=== PATIENT | male | born 1955 | race Caucasian/White ===

== ENCOUNTER → 2016-09-07 | Outpatient (REF) | payer BC ==
[~2016-09-07] MED LIST: FLAX10002 PO; KETO10TAB PO; LISI20TA PO; PRIN10TA PO; SMZ-800T PO
[2016-09-07 13:30] LABS: BASO % 0.4 % (0.0-1.0); EOS # 0.1 K/mm3 (0.0-0.50); EOS % 1.3 % (0.0-3.0); LARGE UNSTAINED CELL # 0.2 K/mm3 (0.0-0.4); LARGE UNSTAINED CELL % 3.8 % (0.0-4.0); LYMPH # 1.3 K/mm3 (1.5-4.5); MEAN CORPUSCULAR HEMOGLOBIN 29.7 pg (27.0-33.0); MEAN CORPUSCULAR HGB CONC 32.7 g/dl (32.0-36.5); MEAN CORPUSCULAR VOLUME 90.8 fl (80.0-96.0); MONO # 0.4 K/mm3 (0.0-0.8); MONO % 7.4 % (0.0-5.0); NEUTROPHILS # 3.3 K/mm3 (1.8-7.7); NEUTROPHILS % 62.1 % (36.0-66.0); PLATELET COUNT, AUTOMATED 124 k/mm3 (150-450); RED CELL DISTRIBUTION WIDTH 13.1 % (11.5-14.5); WHITE BLOOD COUNT 5.3 K/mm3 (4.0-10.0)
[2016-09-07 14:11] LABS: VITAMIN B12 LEVEL 1038 PG/ML (247-911)
[2016-09-07 14:23] LABS: ALBUMIN 3.7 GM/DL (3.2-5.2); ALBUMIN/GLOBULIN RATIO 1.12 (1.00-1.93); ALKALINE PHOSPHATASE 170 U/L (45-117); ALT/SGPT 79 U/L (12-78); ANION GAP 11 MEQ/L (8-16); AST/SGOT 59 U/L (15-37); BILIRUBIN,TOTAL 0.7 MG/DL (0.2-1.0); BLOOD UREA NITROGEN 20 MG/DL (7-18); CALCIUM LEVEL 8.7 MG/DL (8.8-10.2); CARBON DIOXIDE LEVEL 26 MEQ/L (21-32); CHLORIDE LEVEL 107 MEQ/L (98-107); CREATININE FOR GFR 0.83 MG/DL (0.70-1.30); GLOMERULAR FILTRATION RATE > 60.0 (>49); GLUCOSE, FASTING 92 MG/DL (80-110); POTASSIUM SERUM 4.1 MEQ/L (3.5-5.1); SODIUM LEVEL 144 MEQ/L (136-145)
[2016-09-07 17:56] LABS: FERRITIN 89 NG/ML (26-388); TOTAL IRON BINDING CAPACITY 320 UG/DL (250-450)
== END ==
LOC: M SFHCPLAZ 11:02
PROVIDERS: ATTEND Family Medicine
DX: K74.60 Unspecified cirrhosis of liver (principal); I10 Essential (primary) hypertension; E11.69 Type 2 diabetes mellitus with other specified complication

== ENCOUNTER → 2016-09-30 | Outpatient (CLI) | payer BC ==
[~2016-09-30] VITALS: Ht 177.8 cm; Wt 111.6 kg
[~2016-09-30] MED LIST changes: +INSULANT SC; +LIDOCAINE 2% INJ 100 MG/5 ML SDV (FOR ANES.) As Ordered ONE; +LIPI10TA PO; +LISI10TA2 PO; +METF1000 PO; +MULTTAB23 PO; +NADO20TA PO; +NS 1,000 ML IV SCH; +OMEP40CA2 PO; +PROPOFOL 200 MG/20 ML VIAL As Ordered ONE; +VITA10006 PO; +VITA200016 PO
--- NOTE | 2016-09-30 12:29 | ROOR ---
Patient Name: Amaury Sinha Procedure Date: 09/30/2016 7:30 AM Date of : 1955 Age: 61 Room: [facility] Gender: Male Note Status: Finalized Procedure: Upper GI endoscopy Indications: Cirrhosis rule out esophageal varices, Esophageal varices, Follow-up of esophageal varices Providers: Gage OGDEN MD Referring MD: Ernie Cardona MD Requesting Provider: Medicines: Monitored Anesthesia Care Complications: No immediate complications. Procedure: Pre-Anesthesia Assessment: - The heart rate, respiratory rate, oxygen saturations, blood pressure, adequacy of pulmonary ventilation, and response to care were monitored throughout the procedure. The Endoscope was introduced through the mouth, and advanced to the second part of duodenum. The upper GI endoscopy was accomplished without difficulty. The patient tolerated the procedure well. Findings: Grade I, small (< 5 mm) varices were found in the lower third of the esophagus. They were small in size. Small varices-no endoscopic therapy indicated The Z-line was variable and was found 38 cm from the incisors. This was biopsied with a cold forceps for histology. The entire examined stomach was normal. The examined duodenum was normal. Impression: - Grade I and small (< 5 mm) esophageal varices. (Small varices-no endoscopic therapy indicated) - Z-line variable, 38 cm from the incisors. Biopsied. - Normal stomach. - Normal examined duodenum. Recommendation: - Start/continue a Non-selective Beta Kim such as Propranolol or Nadolol, titrate to heart rate. - Repeat upper endoscopy in 1 year for surveillance. Gage Ogden MD Gage OGDEN MD 09/30/2016 12:28:45 PM This report has been signed electronically. Number of Addenda: 0 Note Initiated On: 09/30/2016 7:30 AM Estimated Blood Loss: Estimated blood loss: none.
[2016-09-30 13:04] VITALS: BP 117/71
== END | disposition home or self-care (01) ==
LOC: M OPP 09:18
PROVIDERS: ATTEND Internal Medicine Gastroenterology
DX: K74.60 Unspecified cirrhosis of liver (principal); I85.00 Esophageal varices without bleeding; K22.8 Other specified diseases of esophagus; I10 Essential (primary) hypertension; E78.5 Hyperlipidemia, unspecified; E10.9 Type 1 diabetes mellitus without complications; R06.83 Snoring; M19.90 Unspecified osteoarthritis, unspecified site; Z87.891 Personal history of nicotine dependence; Z79.899 Other long term (current) drug therapy; Z79.84 Long term (current) use of oral hypoglycemic drugs; Z79.4 Long term (current) use of insulin; Z88.0 Allergy status to penicillin; Z88.8 Allergy status to other drugs, medicaments and biological substances

== ENCOUNTER → 2016-12-16 | Outpatient (REF) | payer BC ==
[~2016-12-16] MED LIST changes: -LIDOCAINE 2% INJ 100 MG/5 ML SDV (FOR ANES.) As Ordered ONE; -NS 1,000 ML IV SCH; -PROPOFOL 200 MG/20 ML VIAL As Ordered ONE
[2016-12-16 19:10] LABS: MEAN CORPUSCULAR HEMOGLOBIN 30.2 pg (27.0-33.0); MEAN CORPUSCULAR HGB CONC 33.5 g/dl (32.0-36.5); MEAN CORPUSCULAR VOLUME 90.1 fl (80.0-96.0); RED CELL DISTRIBUTION WIDTH 13.5 % (11.5-14.5); RETIC HEMOGLOBIN CONTENT CHr 32.6 PG (24-36); RETICULOCYTE ABSOLUTE ADVIA212 95 x10(9)/L (17-77); WHITE BLOOD COUNT 5.2 K/mm3 (4.0-10.0)
[2016-12-16 19:11] LABS: ALBUMIN 3.7 GM/DL (3.2-5.2); ALBUMIN/GLOBULIN RATIO 1.12 (1.00-1.93); ALKALINE PHOSPHATASE 165 U/L (45-117); ALT/SGPT 83 U/L (12-78); ANION GAP 7 MEQ/L (8-16); AST/SGOT 60 U/L (15-37); BILIRUBIN,TOTAL 0.7 MG/DL (0.2-1.0); BLOOD UREA NITROGEN 18 MG/DL (7-18); CALCIUM LEVEL 9.2 MG/DL (8.8-10.2); CARBON DIOXIDE LEVEL 29 MEQ/L (21-32); CHLORIDE LEVEL 105 MEQ/L (98-107); CREATININE FOR GFR 0.79 MG/DL (0.70-1.30); GLOMERULAR FILTRATION RATE > 60.0 (>49); GLUCOSE, FASTING 99 MG/DL (80-110); POTASSIUM SERUM 3.9 MEQ/L (3.5-5.1); SODIUM LEVEL 141 MEQ/L (136-145)
[2016-12-16 20:52] LABS: BASOPHILS 1 % (0-4); EOSINOPHILS 1 % (0-5)
[2016-12-17 11:12] LABS: PRETREATED FOLATE FOR RBCFOL 9.5 NG/ML
[2016-12-21 12:37] LABS: ALBUMIN 3.92 GM/DL (3.29-5.55); GAMMA GLOBULIN % 16.3 % (11.1-18.8)
== END ==
LOC: M SFHCPLAZ 14:57
PROVIDERS: ATTEND Family Medicine
DX: D61.818 Other pancytopenia (principal)

== ENCOUNTER → 2017-05-04 | Outpatient (REF) | payer BC ==
[~2017-05-04] MED LIST changes: +GABA-282 PO; +GABA600T PO; -METF1000 PO; +METF10004 PO; +NATU400T PO
[2017-05-04 16:54] LABS: ALBUMIN/GLOBULIN RATIO 1.08 (1.00-1.93); ALKALINE PHOSPHATASE 163 U/L (45-117); ALT/SGPT 92 U/L (12-78); ANION GAP 10 MEQ/L (8-16); AST/SGOT 62 U/L (15-37); BILIRUBIN,TOTAL 0.7 MG/DL (0.2-1.0); BLOOD UREA NITROGEN 17 MG/DL (7-18); CALCIUM LEVEL 8.9 MG/DL (8.8-10.2); CARBON DIOXIDE LEVEL 27 MEQ/L (21-32); CHLORIDE LEVEL 106 MEQ/L (98-107); CHOLESTEROL LEVEL 147 MG/DL (<200); CREATININE FOR GFR 0.91 MG/DL (0.70-1.30); FERRITIN 76 NG/ML (26-388); GLOMERULAR FILTRATION RATE > 60.0 (>49); GLUCOSE, FASTING 74 MG/DL (80-110); PERCENT SATURATION 25.4 % (19.7-50.0); SODIUM LEVEL 143 MEQ/L (136-145); TOTAL IRON BINDING CAPACITY 355 UG/DL (250-450); TOTAL PROTEIN 7.7 GM/DL (6.4-8.2); TRIGLYCERIDES LEVEL 109 MG/DL (<150)
[2017-05-04 17:14] LABS: MEAN CORPUSCULAR HEMOGLOBIN 31.2 pg (27.0-33.0); MEAN CORPUSCULAR HGB CONC 35.1 g/dl (32.0-36.5); MEAN CORPUSCULAR VOLUME 88.9 fl (80.0-96.0); RED CELL DISTRIBUTION WIDTH 13.4 % (11.5-14.5); WHITE BLOOD COUNT 4.7 K/mm3 (4.0-10.0)
[2017-05-04 21:29] LABS: BASOPHILS 1 % (0-4); EOSINOPHILS 1 % (0-5)
== END ==
LOC: M SFHCPLAZ 14:14
PROVIDERS: ATTEND Family Medicine
DX: D61.818 Other pancytopenia (principal); E11.69 Type 2 diabetes mellitus with other specified complication; Z12.5 Encounter for screening for malignant neoplasm of prostate
CPT/HCPCS: 36415; 80053; 80061; 82728; 83036; 83550; 85007; 85027; 88300; G0103

== ENCOUNTER → 2017-06-21 | Outpatient (REF) | payer BC ==
[2017-06-21 14:43] LABS: VITAMIN B12 LEVEL 991 PG/ML (247-911)
[2017-06-21 14:44] LABS: BLOOD UREA NITROGEN 18 MG/DL (7-18); CREATININE FOR GFR 1.03 MG/DL (0.70-1.30); FOLATE > 24.0 NG/ML (>5.4); GLOMERULAR FILTRATION RATE > 60.0 (>49)
[2017-06-25 00:07] LABS: VITAMIN E LEVEL 14.5 mg/L (5.3-17.5)
== END ==
LOC: M LABNEURO 10:36
PROVIDERS: ATTEND Psychiatry & Neurology Neurology
DX: M79.673 Pain in unspecified foot (principal)

== ENCOUNTER 2017-07-14 10:29 | Emergency (ER) | payer BC ==
[~2017-07-14] VITALS: Ht 182.9 cm; Wt 103.2 kg
[~2017-07-14 10:29] MED LIST changes: -GABA-282 PO; -GABA600T PO; -NATU400T PO
[2017-07-14] MEDS ORDERED: GABA-282 PO (10:42)
[2017-07-14] MEDS ORDERED: GABA600T PO (10:42)
[2017-07-14] MEDS ORDERED: NATU400T PO (10:42)
[2017-07-14] MEDS ORDERED: NS 1,000 ML IV SCH (10:54)
--- NOTE | 2017-07-14 12:29 | REP ---
Abdomen series: Three views. History: Abdominal distension. Comparison study December 18, 2012. Findings: EKG monitoring electrodes overlie the chest. The heart is somewhat enlarged and is more prominent than on the prior exam. Cardiothoracic ratio is 18.5 cm over 32.6 cm. Pulmonary vasculature is not increased. There is no evidence of infiltrate or free diaphragmatic air. Supine erect views of the abdomen show clips in the right upper quadrant. There are a few nonspecific air filled loops of small bowel in the central abdomen without dilation. There is only a small quantity of stool in the right colon. No colonic dilation. Psoas margins and flank stripes are intact. No free air is seen. Impression: Nonspecific small bowel loops. Cardiomegaly. Post cholecystectomy. Signed by Matthias De Souza MD 07/14/2017 05:21 P
[2017-07-14 12:46] LABS: BASO % 0.6 % (0.0-1.0); EOS # 0.1 10^3/uL (0.0-0.50); IMMATURE GRANULOCYTE % 0.6 % (0-0); LYMPH # 1.4 10^3/uL (1.5-4.5); LYMPH % 28.5 % (24.0-44.0); MEAN CORPUSCULAR HEMOGLOBIN 30.2 pg (27.0-33.0); MEAN CORPUSCULAR VOLUME 88.8 fl (80.0-96.0); MONO # 0.4 10^3/uL (0.0-0.8); MONO % 8.7 % (0.0-5.0); NEUTROPHILS # 3.1 10^3/uL (1.8-7.7); NEUTROPHILS % 60.6 % (36.0-66.0); PLATELET COUNT, AUTOMATED 129 10^3/uL (150-450); RED CELL DISTRIBUTION WIDTH 13.5 % (11.5-14.5); WHITE BLOOD COUNT 5.1 10^3/uL (4.0-10.0)
[2017-07-14 13:11] LABS: ALBUMIN 3.6 GM/DL (3.2-5.2); ALBUMIN/GLOBULIN RATIO 1.13 (1.00-1.93); ALKALINE PHOSPHATASE 131 U/L (45-117); ALT/SGPT 68 U/L (12-78); ANION GAP 7 MEQ/L (8-16); AST/SGOT 44 U/L (7-37); BILIRUBIN,DIRECT 0.3 MG/DL (0.0-0.2); BILIRUBIN,TOTAL 0.8 MG/DL (0.2-1.0); BLOOD UREA NITROGEN 19 MG/DL (7-18); CALCIUM LEVEL 8.8 MG/DL (8.8-10.2); CARBON DIOXIDE LEVEL 27 MEQ/L (21-32); CHLORIDE LEVEL 110 MEQ/L (98-107); CREATININE FOR GFR 0.82 MG/DL (0.70-1.30); GLOMERULAR FILTRATION RATE > 60.0 (>49); GLUCOSE, FASTING 91 MG/DL (80-110); POTASSIUM SERUM 4.1 MEQ/L (3.5-5.1); SODIUM LEVEL 144 MEQ/L (136-145); TOTAL PROTEIN 6.8 GM/DL (6.4-8.2)
[2017-07-14 14:42] VITALS: BP 131/68
--- NOTE | 2017-07-15 12:27 | ECGEPIP ---
Stationary ECG Study [facility] - ED Test Date: 2017-07-14 Pat Name: DAMIÁN ESPINOZA Department: Room: - Gender: M Media Manager: GALILEA : 1955 Requested By: Mayuri Espinoza Order Number: [id number] Reading MD: Mayuri Espinoza Measurements Intervals [place] Rate: 44 P: 41 IN: 178 QRS: -17 QRSD: 108 T: -6 QT: 447 QTc: 385 Interpretive Statements SINUS BRADYCARDIA MINIMAL VOLTAGE CRITERIA FOR LVH, CONSIDER NORMAL VARIANT NSTTW ABNORMALITY Electronically Signed On 07-15-2017 12:26:53 EST by Mayuri Espinoza
== END 2017-07-14 14:46 | disposition home or self-care (01) ==
LOC: M ED 10:29
DX: R14.0 Abdominal distension (gaseous) (principal); M54.2 Cervicalgia; G89.29 Other chronic pain; E11.9 Type 2 diabetes mellitus without complications; E78.70 Disorder of bile acid and cholesterol metabolism, unspecified; K74.60 Unspecified cirrhosis of liver; Z79.899 Other long term (current) drug therapy; Z79.84 Long term (current) use of oral hypoglycemic drugs; Z79.4 Long term (current) use of insulin; Z88.0 Allergy status to penicillin; Z88.1 Allergy status to other antibiotic agents; Z87.19 Personal history of other diseases of the digestive system; Z87.891 Personal history of nicotine dependence

== ENCOUNTER → 2017-11-24 | Outpatient (REF) | payer BC ==
[2017-11-24 12:00] LABS: BASO % 0.5 % (0.0-1.0); EOS # 0.1 10^3/uL (0.0-0.50); EOS % 1.8 % (0.0-3.0); HEMATOCRIT 38.5 % (42.0-52.0); HEMOGLOBIN 12.9 g/dl (14.0-18.0); IMMATURE GRANULOCYTE % 0.3 % (0-3.0); LYMPH # 1.1 10^3/uL (1.5-4.5); LYMPH % 28.5 % (24.0-44.0); MEAN CORPUSCULAR HEMOGLOBIN 29.5 pg (27.0-33.0); MEAN CORPUSCULAR HGB CONC 33.5 g/dl (32.0-36.5); MEAN CORPUSCULAR VOLUME 87.9 fl (80.0-96.0); MONO # 0.4 10^3/uL (0.0-0.8); MONO % 10.8 % (0.0-5.0); NEUTROPHILS # 2.3 10^3/uL (1.8-7.7); NEUTROPHILS % 58.1 % (36.0-66.0); PLATELET COUNT, AUTOMATED 117 10^3/uL (150-450); RED BLOOD COUNT 4.38 10^6/uL (4.30-6.10); RED CELL DISTRIBUTION WIDTH 13.2 % (11.5-14.5); WHITE BLOOD COUNT 3.9 10^3/uL (4.0-10.0)
[2017-11-24 12:15] LABS: AMMONIA 70 uMOL/L (<32)
[2017-11-24 12:16] LABS: ALPHA FETOPROTEIN TUMOR QUANT < 1.3 NG/ML (<8.1); TOTAL 25(OH) VITAMIN D 34.1 NG/ML (30.0-100.0)
[2017-11-24 12:17] LABS: INR 1.06; PARTIAL THROMBOPLASTIN TIME 34.6 SECONDS (26.8-37.9); PROTHROMBIN TIME 13.9 SECONDS (12.4-14.5)
[2017-11-24 12:17] LABS: PTH INTACT 42.7 PG/ML (18.5-88.0)
[2017-11-24 12:32] LABS: MAGNESIUM LEVEL 2.1 MG/DL (1.8-2.4)
[2017-11-24 14:41] LABS: ESTIMATED AVERAGE GLUCOSE 126 MG/DL (60-110)
== END ==
LOC: M SFHCPLAZ 08:15
DX: K74.60 Unspecified cirrhosis of liver (principal); D61.818 Other pancytopenia; E11.69 Type 2 diabetes mellitus with other specified complication; I10 Essential (primary) hypertension; E55.9 Vitamin D deficiency, unspecified

== ENCOUNTER → 2017-12-08 | Outpatient (CLI) | payer BC | LOC: M RAD 06:08 | DX: K74.60 Unspecified cirrhosis of liver (principal) | CPT/HCPCS: 76705 ==

== ENCOUNTER → 2018-03-02 | Outpatient (REF) | payer BC ==
[2018-03-02 13:02] LABS: ESTIMATED AVERAGE GLUCOSE 134 MG/DL (60-110); HEMOGLOBIN A1c 6.3 %
== END ==
LOC: M SFHCPLAZ 08:07
DX: E11.69 Type 2 diabetes mellitus with other specified complication (principal); Z12.5 Encounter for screening for malignant neoplasm of prostate

== ENCOUNTER → 2018-03-09 | Outpatient (CLI) | payer BC | LOC: M RAD 13:22 | DX: M47.816 Spondylosis without myelopathy or radiculopathy, lumbar region (principal); M51.35 Other intervertebral disc degeneration, thoracolumbar region | CPT/HCPCS: 72072 ==

== ENCOUNTER → 2018-03-09 | Outpatient (REF) | payer BC ==
[2018-03-09 12:30] LABS: C REACTIVE PROTEIN QUANTITATIV < 0.30 MG/DL (0.00-0.30); CHOLESTEROL LEVEL 143 MG/DL (<200); CHOLESTEROL RISK RATIO 3.864 (<5); CPK CREATINE PHOSPHOKINASE 200 U/L (39-308); FREE T4 0.91 NG/DL (0.76-1.46); HDL CHOLESTEROL 37 MG/DL (>40); LDL CHOLESTEROL 78.6 MG/DL (<100); MAGNESIUM LEVEL 2.1 MG/DL (1.8-2.4); NON-HDL-C 106 MG/DL; PSA SCREENING 0.78 NG/ML (< 4.0); TRIGLYCERIDES LEVEL 137 MG/DL (<150)
== END ==
LOC: M SFHCPLAZ 09:25
DX: E11.69 Type 2 diabetes mellitus with other specified complication (principal); Z12.5 Encounter for screening for malignant neoplasm of prostate
CPT/HCPCS: 82550

== ENCOUNTER 2018-04-19 13:21 | Outpatient (RCR) | payer BC | END 2018-05-05 | LOC: M PT 13:21 | DX: Z51.89 Encounter for other specified aftercare (principal); M47.816 Spondylosis without myelopathy or radiculopathy, lumbar region | CPT/HCPCS: 97010 ==

== ENCOUNTER 2018-05-17 13:13 | Outpatient (RCR) | payer BC | END 2018-06-04 | LOC: M PT 13:13 | DX: Z51.89 Encounter for other specified aftercare (principal); M47.816 Spondylosis without myelopathy or radiculopathy, lumbar region | CPT/HCPCS: 97110 ==

== ENCOUNTER 2018-06-13 13:24 | Day surgery (SDC) | payer BC ==
[2018-06-13] MEDS: NS 1,000 ML IV (13:54)
[2018-06-13] MEDS ORDERED: PROPOFOL 200 MG/20 ML VIAL As Ordered ×2 (15:22→15:35)
[2018-06-13] MEDS ORDERED: LIDOCAINE 2% INJ 100 MG/5 ML SDV (FOR ANES.) As Ordered (15:22)
[2018-06-13] MEDS ORDERED: GLYCOPYRROLATE INJ 0.2 MG/ML 2 ML VIAL As Ordered (15:29)
[2018-06-13] MEDS ORDERED: LIDOCAINE VISCOUS 2% SOLN 15ML UDC As Ordered (15:56)
== END 2018-06-13 16:17 | disposition home or self-care (01) ==
LOC: M OPP 13:24
DX: I85.00 Esophageal varices without bleeding (principal); K74.60 Unspecified cirrhosis of liver; E11.9 Type 2 diabetes mellitus without complications; I10 Essential (primary) hypertension; E78.5 Hyperlipidemia, unspecified; Z79.4 Long term (current) use of insulin; Z88.0 Allergy status to penicillin; Z88.8 Allergy status to other drugs, medicaments and biological substances; Z90.49 Acquired absence of other specified parts of digestive tract; Z87.891 Personal history of nicotine dependence
CPT/HCPCS: 43244

== ENCOUNTER → 2018-07-11 | Outpatient (REF) | payer BC ==
[2018-07-11 10:44] LABS: BASO % 0.4 % (0.0-1.0); EOS # 0.1 10^3/uL (0.0-0.50); EOS % 1.8 % (0.0-3.0); HEMATOCRIT 37.6 % (42.0-52.0); HEMOGLOBIN 12.5 g/dl (13.5-17.5); IMMATURE GRANULOCYTE % 0.4 % (0-3.0); LYMPH # 1.3 10^3/uL (1.5-4.5); LYMPH % 25.9 % (24.0-44.0); MEAN CORPUSCULAR HEMOGLOBIN 29.6 pg (27.0-33.0); MEAN CORPUSCULAR HGB CONC 33.2 g/dl (32.0-36.5); MEAN CORPUSCULAR VOLUME 89.1 fl (80.0-96.0); MONO # 0.5 10^3/uL (0.0-0.8); MONO % 10.6 % (0.0-5.0); NEUTROPHILS % 60.9 % (36.0-66.0); PLATELET COUNT, AUTOMATED 122 10^3/uL (150-450); RED BLOOD COUNT 4.22 10^6/uL (4.30-6.10); RED CELL DISTRIBUTION WIDTH 13.3 % (11.5-14.5); WHITE BLOOD COUNT 4.9 10^3/uL (4.0-10.0)
[2018-07-11 11:15] LABS: ALBUMIN 3.7 GM/DL (3.2-5.2); ALBUMIN/GLOBULIN RATIO 1.16 (1.00-1.93); ALKALINE PHOSPHATASE 114 U/L (45-117); ALT/SGPT 56 U/L (12-78); ANION GAP 8 MEQ/L (8-16); AST/SGOT 42 U/L (7-37); BILIRUBIN,TOTAL 0.6 MG/DL (0.2-1.0); BLOOD UREA NITROGEN 23 MG/DL (7-18); CALCIUM LEVEL 8.5 MG/DL (8.8-10.2); CARBON DIOXIDE LEVEL 27 MEQ/L (21-32); CHLORIDE LEVEL 107 MEQ/L (98-107); CREATININE FOR GFR 0.95 MG/DL (0.70-1.30); GLOMERULAR FILTRATION RATE > 60.0 (>49); GLUCOSE, FASTING 121 MG/DL (70-100); POTASSIUM SERUM 4.3 MEQ/L (3.5-5.1); PTH INTACT 32.5 PG/ML (18.5-88.0); SODIUM LEVEL 142 MEQ/L (136-145); TOTAL 25(OH) VITAMIN D 28.9 NG/ML (30.0-100.0); TOTAL PROTEIN 6.9 GM/DL (6.4-8.2)
[2018-07-11 11:30] LABS: ESTIMATED AVERAGE GLUCOSE 137 MG/DL (60-110); HEMOGLOBIN A1c 6.4 %
== END ==
LOC: M SFHCPLAZ 08:07
DX: D61.818 Other pancytopenia (principal); M47.816 Spondylosis without myelopathy or radiculopathy, lumbar region; I10 Essential (primary) hypertension; E11.69 Type 2 diabetes mellitus with other specified complication; E55.9 Vitamin D deficiency, unspecified
CPT/HCPCS: 83735

== ENCOUNTER 2018-10-03 11:54 | Day surgery (SDC) | payer BC ==
[~2018-10-03] VITALS: Ht 182.9 cm; Wt 113.4 kg
[~2018-10-03 11:54] MED LIST changes: +GABA-843 PO; +GABA600T4 PO; +MOBI15TA PO; +NATU400T PO; +NS 1,000 ML IV ONE; +ZANT300T9 PO
[2018-10-03] MEDS ORDERED: LIDOCAINE 2% INJ 100 MG/5 ML SYRINGE As Ordered ONE ×2 (13:17→13:19)
[2018-10-03] MEDS ORDERED: PROPOFOL 200 MG/20 ML VIAL As Ordered ONE (13:17)
[2018-10-03] MEDS ORDERED: fentaNYL 100 MCG/2 ML INJECTION (J3010) As Ordered ONE (13:18)
[2018-10-03] MEDS ORDERED: LIDOCAINE 2% INJ 100 MG/5 ML SDV (FOR ANES.) As Ordered ONE (13:19)
[2018-10-03] MEDS ORDERED: GLYCOPYRROLATE INJ 0.2 MG/ML 2 ML VIAL As Ordered ONE (13:32)
--- NOTE | 2018-10-03 13:38 | ROOR ---
Patient Name: Amaury Sinha Procedure Date: 10/03/2018 1:23 PM Date of : 1955 Age: 63 Room: [facility] Gender: Male Note Status: Finalized Procedure: Upper GI endoscopy Indications: Follow-up of esophageal varices, 1st degree variceal eradication (no prior bleeding) Providers: Gage OGDEN MD Referring MD: Ernie Cardona MD Requesting Provider: Medicines: Monitored Anesthesia Care Complications: No immediate complications. Procedure: Pre-Anesthesia Assessment: - The heart rate, respiratory rate, oxygen saturations, blood pressure, adequacy of pulmonary ventilation, and response to care were monitored throughout the procedure. The Endoscope was introduced through the mouth, and advanced to the second part of duodenum. The upper GI endoscopy was accomplished without difficulty. The patient tolerated the procedure well. Findings: Grade I varices were found in the lower third of the esophagus. They were small in size. (Varices are small today, primary prevention/eradication not indicated today) The entire examined stomach was normal. The examined duodenum was normal. Impression: - Grade I esophageal varices. (Varices are small today, primary prevention/eradication not indicated today) - Normal stomach. - Normal examined duodenum. - No specimens collected. Recommendation: - Start/continue a Non-selective Beta Kim such as Propranolol or Nadolol, titrate to heart rate. - Observe patient's clinical course. - Return to my office in 1 year. Gage Ogden MD Gage OGDEN MD 10/03/2018 1:38:11 PM This report has been signed electronically. Number of Addenda: 0 Note Initiated On: 10/03/2018 1:23 PM Estimated Blood Loss: Estimated blood loss: none.
[2018-10-03 14:03] VITALS: BP 150/83
== END 2018-10-03 14:03 | disposition home or self-care (01) ==
LOC: M OPP 11:54
PROVIDERS: ATTEND Internal Medicine Gastroenterology
DX: I85.00 Esophageal varices without bleeding (principal); E11.9 Type 2 diabetes mellitus without complications; I10 Essential (primary) hypertension; E78.5 Hyperlipidemia, unspecified; R12 Heartburn; Z79.4 Long term (current) use of insulin; Z79.899 Other long term (current) drug therapy; Z87.891 Personal history of nicotine dependence; Z88.0 Allergy status to penicillin; Z88.1 Allergy status to other antibiotic agents
CPT/HCPCS: 43235; J3010

== ENCOUNTER 2018-11-12 15:29 | Emergency (ER) | payer BC ==
[~2018-11-12] VITALS: Ht 182.9 cm; Wt 111.8 kg
[~2018-11-12 15:29] MED LIST changes: -NS 1,000 ML IV ONE
--- NOTE | 2018-11-12 16:04 | REP ---
Left foot four views: There is no fracture or dislocation. 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 There are small calcaneal plantar and Achilles spurs. Otherwise, essentially negative left foot. Electronically Signed by Antony Solis MD 11/12/2018 03:55 P
--- NOTE | 2018-11-12 17:24 | REP ---
Left tibia-fibula two views : There is no fracture or dislocation. Mineralization and joint spaces are normal. There are no calcifications or foreign bodies. Impression: Negative Left tibia-fibula . Electronically Signed by Antony Solis MD 11/12/2018 05:15 P
[2018-11-12 17:53] VITALS: BP 126/67
== END 2018-11-12 17:54 | disposition home or self-care (01) ==
LOC: M ED 15:29
DX: S90.32XA Contusion of left foot, initial encounter (principal); S90.122A Contusion of left lesser toe(s) without damage to nail, initial encounter; W10.8XXA Fall (on) (from) other stairs and steps, initial encounter; Y92.098 Other place in other non-institutional residence as the place of occurrence of the external cause; E11.9 Type 2 diabetes mellitus without complications; I10 Essential (primary) hypertension; E78.9 Disorder of lipoprotein metabolism, unspecified; K74.60 Unspecified cirrhosis of liver; Z88.0 Allergy status to penicillin; Z88.1 Allergy status to other antibiotic agents; Z79.899 Other long term (current) drug therapy; Z79.84 Long term (current) use of oral hypoglycemic drugs; Z79.4 Long term (current) use of insulin

== ENCOUNTER → 2019-01-11 | Outpatient (REF) | payer BC ==
[2019-01-11 12:16] LABS: BASO % 0.6 % (0.0-1.0); EOS # 0.1 10^3/uL (0.0-0.50); EOS % 1.1 % (0.0-3.0); HEMATOCRIT 40.6 % (42.0-52.0); HEMOGLOBIN 13.3 g/dl (13.5-17.5); LYMPH # 1.2 10^3/uL (1.5-4.5); LYMPH % 26.1 % (24.0-44.0); MEAN CORPUSCULAR HGB CONC 32.8 g/dl (32.0-36.5); MEAN CORPUSCULAR VOLUME 91.4 fl (80.0-96.0); MONO # 0.4 10^3/uL (0.0-0.8); MONO % 9.2 % (0.0-5.0); NEUTROPHILS % 62.6 % (36.0-66.0); PLATELET COUNT, AUTOMATED 130 10^3/uL (150-450); RED BLOOD COUNT 4.44 10^6/uL (4.30-6.10); WHITE BLOOD COUNT 4.8 10^3/uL (4.0-10.0)
[2019-01-11 12:29] LABS: INR 1.07
[2019-01-11 12:30] LABS: PARTIAL THROMBOPLASTIN TIME 27.4 SECONDS (25.4-37.6)
[2019-01-11 12:43] LABS: ALBUMIN 4.1 GM/DL (3.2-5.2); ALT/SGPT 72 U/L (12-78); BILIRUBIN,TOTAL 0.7 MG/DL (0.2-1.0); BLOOD UREA NITROGEN 21 MG/DL (7-18); C REACTIVE PROTEIN QUANTITATIV < 0.30 MG/DL (0.00-0.30); CALCIUM LEVEL 8.8 MG/DL (8.8-10.2); CARBON DIOXIDE LEVEL 28 MEQ/L (21-32); CHLORIDE LEVEL 106 MEQ/L (98-107); CREATININE FOR GFR 1.02 MG/DL (0.70-1.30); GLOMERULAR FILTRATION RATE > 60.0 (>49); GLUCOSE, FASTING 128 MG/DL (70-100); POTASSIUM SERUM 4.2 MEQ/L (3.5-5.1); SODIUM LEVEL 141 MEQ/L (136-145); TOTAL PROTEIN 7.6 GM/DL (6.4-8.2)
[2019-01-11 15:34] LABS: HEMOGLOBIN A1c 6.5 %
[2019-01-13 00:06] LABS: ANA (HEP2) Positive (.)
== END ==
LOC: M SFHCPLAZ 11:16
PROVIDERS: ATTEND Family Medicine
DX: K74.60 Unspecified cirrhosis of liver (principal); D61.818 Other pancytopenia; R51 Headache; E11.69 Type 2 diabetes mellitus with other specified complication

== ENCOUNTER → 2019-01-17 | Outpatient (CLI) | payer BC ==
--- NOTE | 2019-01-18 04:34 | REP ---
Clinical: Cirrhosis. Comparison: 12/08/2017. Technique: Real time bragg scale ultrasound examination using curved array transducer including color Doppler evaluation. Findings: The liver demonstrates heterogeneous echotexture with nodular contour and evidence for recanalized umbilical vein consistent with cirrhosis and similar to prior examination. No obvious focal hepatic lesion identified. The patient is status post cholecystectomy. No biliary ductal dilatation is appreciated and the common bile duct measures 7 mm diameter. The right kidney is normal in reniform shape without hydronephrosis and measures 12.2 x 6.7 x 6.3 cm. No ascites in the visualized right upper quadrant. Main portal vein measures 16 mm diameter and demonstrates normal flow direction, velocity and wave pattern. Impression: Findings consistent with cirrhosis. No focal hepatic lesion identified by ultrasound. Electronically Signed by Charan Alfaro MD 01/18/2019 04:25 A
== END ==
LOC: M RAD 07:33
PROVIDERS: ATTEND Family Medicine
DX: K74.60 Unspecified cirrhosis of liver (principal)

== ENCOUNTER → 2019-02-07 | Outpatient (CLI) | payer BC ==
--- NOTE | 2019-02-07 09:42 | REP ---
MR BRAIN WITHOUT CONTRAST: HISTORY: Temporal headaches. Several punctate areas of increased signal intensity on T2-weighted images are present in the periventricular and subcortical white matter. This represents small vessel ischemic disease. There is no intraparenchymal hemorrhage, infarct, mass or mid line shift. The ventricular system and cortical sulci are dilated consistent with minimal volume loss. There is no extracerebral collection. Mucosal thickening is present in the left maxillary sinus. IMPRESSION: 1. Minimal small vessel ischemic disease. 2. Minimal volume loss. Electronically Signed by Mp Sky MD 02/07/2019 09:45 A
== END ==
LOC: M RAD 07:54
PROVIDERS: ATTEND Family Medicine
DX: R51 Headache (principal)

== ENCOUNTER 2019-02-19 10:27 | Inpatient (IN) | payer BC ==
[~2019-02-19] VITALS: Ht 188 cm; Wt 114.8 kg
--- NOTE | 2019-02-19 11:20 | REP ---
Head CT without contrast: History: CVA Comparison study: Comparison MRI study is from February 07, 2019. CT findings: Bone window settings demonstrate an intact bony calvarium. There is no evidence of skull fracture or incidental bony calvarial lesion. The visualized paranasal sinuses appear clear. No intraorbital abnormality is seen. On soft tissue window setting images; the lateral, third, and fourth ventricles are normal in size and position. Lerma-white differentiation pattern is normal above and below the tentorium. There are is no evidence of intracranial hemorrhage. No mass, edema, infarction, or midline shift is seen. No extra-axial fluid collection is appreciated. There is minimal vascular calcification. Impression: Negative noncontrast head CT. Electronically Signed by Matthias De Souza MD 02/19/2019 11:11 A
[2019-02-19 11:30] LABS: BASO % 0.6 % (0.0-1.0); EOS # 0.1 10^3/uL (0.0-0.50); EOS % 1.3 % (0.0-3.0); HEMATOCRIT 39.2 % (42.0-52.0); HEMOGLOBIN 13.2 g/dl (13.5-17.5); LYMPH # 1.3 10^3/uL (1.5-4.5); LYMPH % 25.1 % (24.0-44.0); MEAN CORPUSCULAR HEMOGLOBIN 30.1 pg (27.0-33.0); MEAN CORPUSCULAR HGB CONC 33.7 g/dl (32.0-36.5); MEAN CORPUSCULAR VOLUME 89.3 fl (80.0-96.0); MONO # 0.5 10^3/uL (0.0-0.8); MONO % 9.7 % (0.0-5.0); NEUTROPHILS # 3.3 10^3/uL (1.8-7.7); NEUTROPHILS % 62.7 % (36.0-66.0); PLATELET COUNT, AUTOMATED 131 10^3/uL (150-450); RED BLOOD COUNT 4.39 10^6/uL (4.30-6.10); WHITE BLOOD COUNT 5.3 10^3/uL (4.0-10.0)
[2019-02-19 11:42] LABS: INR 1.02; PROTHROMBIN TIME 13.5 SECONDS (12.1-14.4)
[2019-02-19 11:43] LABS: PARTIAL THROMBOPLASTIN TIME 30.5 SECONDS (25.4-37.6)
--- NOTE | 2019-02-19 11:48 | REP ---
CHEST, SINGLE VIEW: Single view of the chest is performed and compared to a prior study of 09/13/2016. There is mild cardiomegaly. There is no acute infiltrate or pulmonary edema. There is mild calcification of the thoracic aorta. The mediastinal silhouette is unchanged. IMPRESSION: Mild cardiomegaly. No acute infiltrate. Electronically Signed by Antony Lerma MD 02/19/2019 04:20 P
[2019-02-19 12:02] LABS: ALBUMIN 3.6 GM/DL (3.2-5.2); ALT/SGPT 51 U/L (12-78); BILIRUBIN,DIRECT 0.2 MG/DL (0.0-0.2); BILIRUBIN,TOTAL 0.4 MG/DL (0.2-1.0); BLOOD UREA NITROGEN 22 MG/DL (7-18); CARBON DIOXIDE LEVEL 26 MEQ/L (21-32); CHLORIDE LEVEL 107 MEQ/L (98-107); CK-MB VALUE MASS 4.7 NG/ML (<3.6); CPK CREATINE PHOSPHOKINASE 144 U/L (39-308); CREATININE FOR GFR 1.07 MG/DL (0.70-1.30); GLOMERULAR FILTRATION RATE > 60.0 (>49); GLUCOSE, FASTING 120 MG/DL (70-100); MB/CK RELATIVE INDEX 3.26 (< OR =4); POTASSIUM SERUM 4.2 MEQ/L (3.5-5.1); SODIUM LEVEL 140 MEQ/L (136-145); TOTAL PROTEIN 7.4 GM/DL (6.4-8.2); TROPONIN I < 0.02 NG/ML (< 0.10)
[2019-02-19] MEDS ORDERED: CALCTAB15 PO (13:37)
[2019-02-19] MEDS ORDERED: VOLT1GEL15 TD (13:37)
[2019-02-19] MEDS ORDERED: VITA400C53 PO (13:37)
[2019-02-19] MEDS ORDERED: GABA600T4 PO (13:37)
[2019-02-19] MEDS ORDERED: MAGN400T2 PO (13:37)
[2019-02-19] MEDS ORDERED: NORT25CA2 PO (13:37)
[2019-02-19] MEDS ORDERED: DEXTROSE 50% 50 ML SYRINGE IV PRN (14:30)
[2019-02-19] MEDS ORDERED: GLUCAGON FOR INJ 1 MG VIAL (J1610) SC PRN (14:30)
[2019-02-19] MEDS ORDERED: GLUCOSE 4 GM CHEW TABLET PO PRN (14:30)
[2019-02-19] MEDS ORDERED: NS 1,000 ML IV SCH (15:00)
--- NOTE | 2019-02-19 15:32 | HPEPDOC ---
General Date of Admission Feb 19, 2019 at 13:36 Date of Service: Feb 19, 2019 Primary Care Physician: Ernie Cardona M.D. Attending Physician: DWAINE BECERRA MD Chief Complaint The patient is a 63-year-old male admitted with a reason for visit of CVA. Source: Patient, Family, Old records Exam Limitations: No limitations Timing/Duration: Day(s) History of Present Illness Mr. Sinha is a 63-year-old male who presents to [facility] Emergency Department with left sided facial numbness. Patient is accompanied by his partner. Patient states that about 4-5 days ago he woke up with numbness on the left side of his face extending down into his neck and arm. He did not experience any chest pain, shortness of breath, fever, night sweats, chills, rash, or weakness on one side of the body or another. He ambulates unassisted. He does not use oxygen at home. He states that he was fine the evening before bed. Patient states that he works in the [employer] at [employer] and cannot recall doing anything at work, like lifting heavy machinery. He states that due to the numbness in his face and neck he did not go to work on Tuesday. He does not recall sleeping in a compromising position or twisting his neck. Patient states that last evening he began to experience difficulty walking and found that he had to steady himself on the refrigerator, kitchen table, and desk and that anytime he would try to walk without steadying himself he found it difficult to walk. He did not fall, hit his head, or loss consciousness. There was never any bowel or bladder in continence. He arose this morning and when his partner woke up later she noticed that he was slurring his words. She did not notice any facial asymmetry. He called his primary care provider's office and even the noticed that his speech was slurred. He was urged to present to the ED for further e valuation. Emergency Department evaluation reveals an oxygen saturation of 94% on room air. A mildly low platelet value of 131. Ammonia level of 45 although patient is alert and oriented x3. EKG is no different from prior. Head CT and CXR are unremarkable. Hospitalist service was consulted and patient was admitted for further medical management. Home Medications Scheduled Atorvastatin Calcium (Lipitor) 10 Mg Tab, 10 MG PO QHS, (Reported) Calcium/Magnesium (Calcium with Magnesium Tab) 1 Each Tablet, 1 EACH PO DAILY, (Reported) Cholecalciferol (Vitamin D3) (Vitamin D3) 2,000 Unit Cap, 2,000 UNIT PO QHS, (Reported) Gabapentin (Gabapentin) 600 Mg Tab, 600 MG PO BID, (Reported) TAKES AM/1500 Gabapentin (Gabapentin) 600 Mg Tablet, 1,200 MG PO QHS, (Reported) Insulin Glargine (Lantus) 1 Units/0.01 Ml Susp, 20 UNITS SC QHS, (Reported) Lisinopril/Hydrochlorothiazide (Lisinopril-Hctz 10-12.5 mg Tab) 1 Tab Tab, 1 TAB PO DAILY, (Reported) Magnesium Oxide (Magnesium Oxide) 400 Mg Tablet, 400 MG PO QHS, (Reported) Metformin HCl (Metformin HCl) 1,000 Mg Tab, 1,000 MG PO BID, (Reported) Multivit-Min/FA/Lycopen/Lutein (Essential Man 50+ Tablet) 1 Tab Tab, 1 TAB PO DAILY, (Reported) Nadolol (Nadolol) 20 Mg Tab, 20 MG PO QHS, (Reported) Nortriptyline HCl (Nortriptyline HCl) 25 Mg Capsule, 25 MG PO BID, (Reported) Omeprazole (Omeprazole) 40 Mg Cap, 40 MG PO DAILY, (Reported) Ranitidine HCl (Zantac) 300 Mg Tab, 1 TAB PO QHS, (Reported) Vitamin E (Vitamin E) 400 Unit Capsule, 800 UNIT PO QHS, (Reported) Scheduled PRN Diclofenac Sodium (Voltaren) 100 Gm Gel..gram., 1 APLCT TD DAILY PRN for PAIN, (Reported) APPLIES TO ANY AREAS OF PAIN Allergies Coded Allergies: Penicillins (Verified Allergy, Intermediate, RASH, 02/19/19) azithromycin (Verified Allergy, Intermediate, RASH, 02/19/19) Past Medical History Medical History 1. 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 DLP 3. DM 4. Diabetic neuropathy 5. GERD 6. HTN 7. Esophageal varices Surgical History 1. Cataracts 2. Cholecystectomy 3. Colonoscopy 4. Polypectomy Family History Father: , 50s, myocardial infarction Mother: , 60s, lung cancer Siblings - Sister: Alive, 58, cerebral AVM - Sister: , 50, unknown cause - Sister: , 40s, myocardial infarction Social History * Smoker: former Smoker Alcohol: rarely Pets in the home: Cat(s) Lives with his partner of 21 years. No biological children. Works at [employer] in [employer]. Prior tobacco use, started smoking at age 17 and quit at age 53, smoked at last 1 PPD. Admits to one cat named Piper, one guinea pig named Cinnamon, and tropical fish. Very rarely consumes EtOH. Denies illicit drug use. A-FIB/CHADSVASC A-FIB History Current/History of A-Fib/PAF?: No Review of Systems Constitutional: Denies: Chills, Fever, Night Sweats, Weakness Eyes: Denies: Vision change, Conjunctivae inflammation, Eyelid inflammation, Redness ENT: Reports: Head Aches; Denies: Dysphagia, Sinus Congestion, Post Nasal Drip, Sore Throat, Epistaxis Skin: Reports: Other (numbness along the left sided face, neck, arm); Denies: Rash, Lesions, Jaundice Pulmonary: Denies: Dyspnea, Cough, Pleuritic Chest Pain Cardiovascular: Reports: Edema (improves with elevation); Denies: Chest Pain, Palpitations, Orthopnea, Paroxysmal Noc. Dyspnea, Lt Headedness Gastrointestinal: Denies: Nausea, Vomiting, Abdominal Pain, Diarrhea, Constipation, Melena, Hematochezia Genitourinary: Denies: Dysuria, Frequency, Incontinence, Hematuria, Retention Hematologic: Denies: Bruising, Bleeding Excessively Musculoskeletal: Denies: Neck Pain, Back Pain, Joint Pain, Muscle Pain Neurological: Reports: Numbness (left sided face, neck, arm); Denies: Weakness Physical Examination General Exam: Positive: Alert, Cooperative, No Acute Distress Eye Exam: Positive: PERRLA, Conjunctiva & lids normal, EOMI; Negative: Sclera icteric, Ptosis ENT Exam: Positive: Atraumatic, Pharynx Normal, Tongue Midline, Nares Patent; Negative: Mucous membr. moist/pink (dry), Pharyngeal Edema Neck Exam: Positive: Supple, +2 carotid pulse wo bruit; Negative: JVD, thyromegaly, Lymphadenopathy Chest Exam: Positive: Clear to auscultation, Normal air movement; Negative: Rales, Rhonchi, Wheezing, Diminished Heart Exam: Positive: Rate Normal, Bradycardic, Regular Rhythm, Normal S1, Normal S2; Negative: Gallops, Murmurs, Rubs Telemetry: Positive: Bradycardia Abdomen Exam: Positive: Normal bowel sounds, Soft; Negative: Tenderness, Hepatospenomegaly, Mass, Hernia Extremity Exam: Positive: Edema (+1 pitting edema noted on bilateral lower extremities); Negative: Clubbing, Cyanosis, Normal pulses (bradycardiac), Tenderness Skin Exam: Negative: Rash, Breakdown, Lesion Neuro Exam: Positive: Normal Speech, Strength at 5/5 X4 ext, Cranial Nerves 3- 12 NL, Other (NIHSS = 2) Psych Exam: Positive: Oriented x 3 Other physical findings 1. CT head without contrast - Negative noncontrast head CT. 2. Portable chest x-ray - Mild cardiomegaly. No acute infiltrate. Vital Signs Vital Signs Date Time Temp Pulse Resp B/P (MAP) Pulse Ox O2 Delivery O2 Flow Rate FiO2 02/19/19 13:45 52 147/80 (102) 98 02/19/19 10:28 97.8 18 Room Air Height (in): 72 Weight (kg): 115.45 BMI (kg): 34.5 Laboratory Data Labs 24H Laboratory Tests 2 02/19/19 11:18: Immature Granulocyte % (Auto) 0.6, White Blood Count 5.3, Red Blood Count 4.39, Hemoglobin 13.2L, Hematocrit 39.2L, Mean Corpuscular Volume 89.3, Mean Corpuscular Hemoglobin 30.1, Mean Corpuscular Hemoglobin Concent 33.7, Red Cell Distribution Width 13.1, Platelet Count 131L, Neutrophils (%) (Auto) 62.7, Lymphocytes (%) (Auto) 25.1, Monocytes (%) (Auto) 9.7H, Eosinophils (%) (Auto) 1.3, Basophils (%) (Auto) 0.6, Neutrophils # (Auto) 3.3, Lymphocytes # (Auto) 1.3L, Monocytes # (Auto) 0.5, Eosinophils # (Auto) 0.1, Basophils # (Auto) 0.0, Nucleated Red Blood Cells % (auto) 0.0, Prothrombin Time 13.5, Prothromb Time International Ratio 1.02, Activated Partial Thromboplast Time 30.5, Anion Gap 7L, Glomerular Filtration Rate > 60.0, Calcium Level 9.0, Aspartate Amino Transf (AST/SGOT) 40H, Alanine Aminotransferase (ALT/SGPT) 51, Alkaline Phosphatase 120H, Total Bilirubin 0.4, Direct Bilirubin 0.2, Ammonia 45H, Total Creatine Kinase 144, Creatine Kinase MB 4.7H, Creatine Kinase MB Relative Index 3.26, Tr oponin I < 0.02, Total Protein 7.4, Albumin 3.6, Albumin/Globulin Ratio 0.95L CBC/BMP Laboratory Tests 02/19/19 11:18 Red Blood Count 4.39, Mean Corpuscular Volume 89.3, Mean Corpuscular Hemoglobin 30.1, Mean Corpuscular Hemoglobin Concent 33.7, Red Cell Distribution Width 13.1 , Neutrophils (%) (Auto) 62.7, Lymphocytes (%) (Auto) 25.1, Monocytes (%) (Auto) 9.7 H, Eosinophils (%) (Auto) 1.3, Basophils (%) (Auto) 0.6, Neutrophils # (Auto) 3.3, Lymphocytes # (Auto) 1.3 L, Monocytes # (Auto) 0.5, Eosinophils # (Auto) 0.1, Basophils # (Auto) 0.0 Plan / VTE VTE Prophylaxis Ordered?: Yes (Lovenox 40mg SQ daily) Plan Plan 1. Left sided facial paresthesias Differential: CVA/TIA, trigeminal neuralgia (no visual disturbance), HSV (no rash visualized on examination) Neurology consulted Permissive hypertension for 24-48 hours; holding Lisinopril/HCTZ; will continue Nadolol for esophageal varices; telemetry for 48 hours Echocardiogram ordered PT/OT/ST ordered Increased Atorvastatin to 40mg PO QHS (previously on 10mg) Started Aspirin 81mg PO daily Neurological checks Q2H, VS Q4H, fall precautions Brain and cervical-spine MRI ordered 2. DM with diabetic neuropathy Holding Metformin C/W home dose of Lantus 20 units SQ QHS SSI AC/HS, FSBS AC/HS, hypoglycemic protocol Consistent carbohydrate diet C/w Gabapentin 3. GERD Adjusted Ranitidine to Famotidine 4. Cirrhosis 2/2 MEHTA with esophageal varices C/W Nadolol 5. HTN Holding Lisinopril/HCTZ Disposition Admit: PCU Anticipated hospitalization: 2 nights IVF: Initiate (NS @ 100 mLs/hr) Diet: Continue Current (consistent carbohydrate) Activity: Bedrest (with commode) Therapy: OT, Speech Respiratory: Other Respiratory (oxygen therapy to maintain O2 > 92%) Diagnostics: Check Labs, Repeat Labs in AM, TTE Anticipated Discharge: Home FRANCE ADAMSON DO Feb 19, 2019 15:32
[2019-02-19] MEDS: GABAPENTIN 300 MG CAP PO SCH (16:55)
[2019-02-19] MEDS: ENOXAPARIN 40 MG/0.4 ML SYRINGE (J1650) SC SCH (18:07)
[2019-02-19] MEDS: HumaLOG INSULIN (NovoLOG) PER UNIT SC SCH (18:22)
[2019-02-19 18:47] VITALS: BP 155/79
[2019-02-19 20:00] VITALS: BP 162/68
[2019-02-19 20:00] LABS: CK-MB VALUE MASS 3.6 NG/ML (<3.6); CPK CREATINE PHOSPHOKINASE 118 U/L (39-308); MB/CK RELATIVE INDEX 3.05 (< OR =4); TROPONIN I < 0.02 NG/ML (< 0.10)
[2019-02-19] MEDS ORDERED: LORazepam 0.5 MG TAB PO STA (20:18)
[2019-02-19] MEDS ORDERED: GABAPENTIN 300 MG CAP PO SCH (21:00)
[2019-02-19] MEDS ORDERED: HumaLOG INSULIN (NovoLOG) PER UNIT SC SCH (21:00)
[2019-02-19] MEDS ORDERED: ATORVASTATIN 10 MG TAB PO SCH (21:00)
[2019-02-19] MEDS ORDERED: VITAMIN D 1,000 INTERNATIONAL UNITS TABLET PO SCH (21:00)
[2019-02-19] MEDS ORDERED: LEVEMIR (INSULIN DETEMIR) 1 UNITS/0.01ML SC SCH (21:00)
[2019-02-19] MEDS ORDERED: NADOLOL 20MG TABLET PO SCH (21:00)
[2019-02-19] MEDS ORDERED: FAMOTIDINE 20 MG TAB PO SCH (21:00)
[2019-02-19] MEDS ORDERED: MAGNESIUM OXIDE 400 MG TAB (MAG-OX) PO SCH (21:00)
[2019-02-19] MEDS: NORTRIPTYLINE 25 MG CAP PO SCH (22:23)
--- NOTE | 2019-02-19 23:32 | REPVR ---
EXAM: MR Cervical Spine Without Contrast EXAM DATE/TIME: 02/19/2019 9:54 PM CLINICAL HISTORY: 63 years old, male; Signs and Symptoms; Patient HX: SLURRED SPEACH, LT SIDED NUMBNESS AND WEAKNESS THAT HAS SINCE SUBSIDED, NKI; Additional Info: LEFT SIDED FACIAL PARESTHESIAS TECHNIQUE: Imaging protocol: Multiplanar magnetic resonance images of the cervical spine without contrast. COMPARISON: CR Spine,LS wBENDING MIN 6 VIEWS 03/09/2018 1:41 PM FINDINGS: Limitations: Examination is limited by motion artifact. Vertebrae: Unremarkable. No acute fracture. No subluxation. Spinal cord: Normal signal. No cord compression. C2-C3: No significant disc disease. No significant spinal stenosis. C3-C4: 3 mm biforaminal disc osteophyte complex. Mild spinal stenosis. Severe right neural foraminal narrowing. Severe left neural foraminal narrowing. C4-C5: 3 mm right foraminal disc osteophyte complex. Mild spinal stenosis. Moderate right neural foraminal narrowing. Mild left neural foraminal narrowing. C5-C6: 4 mm right lateral recess disc protrusion. 3 mm left lateral recess disc osteophyte complex. Mild spinal stenosis. Severe right neural foraminal narrowing. Severe left neural foraminal narrowing. C6-C7: 2 mm diffuse disc bulge. Mild spinal stenosis. Moderate right neural foraminal narrowing. Moderate left neural foraminal narrowing. C7-T1: No significant disc disease. No significant spinal stenosis. Soft tissues: Unremarkable IMPRESSION: 1. Limited by motion. 2. Degenerative disc disease as described. Electronically signed by: Latanya Diane On 02/19/2019 23:32:42 PM
--- NOTE | 2019-02-19 23:36 | REPVR ---
EXAM: MR Head Without Contrast EXAM DATE/TIME: 02/19/2019 9:54 PM CLINICAL HISTORY: 63 years old, male; Signs and Symptoms; Speech disturbance and Weakness, Extremity and Weakness, facial; Left; Slurred speech; Patient HX: SLURRED SPEACH, LT SIDED NUMBNESS AND WEAKNESS THAT HAS SINCE SUBSIDED, NKI; Additional Info: ataxia/sensation loss left side TECHNIQUE: Imaging protocol: MR of the head without contrast. COMPARISON: MRI-Brain without Contrast 02/07/2019 8:54 AM FINDINGS: Brain: Minimal scattered T2-hyperintense changes in the deep white matter which are nonspecific but suspicious for chronic small vessel ischemic disease. No acute infarct. No acute intracranial hemorrhage. No mass effect. Ventricles: Normal. No ventriculomegaly. Bones/joints: Unremarkable. Soft tissues: Normal. Sinuses: Retention cyst in the left maxillary sinus. No fluid levels. Mastoid air cells: Normal as visualized. No mastoid effusion. Orbits: Unremarkable. IMPRESSION: 1. No acute infarct 2. Minimal scattered T2-hyperintense changes in the deep white matter which are nonspecific but suspicious for chronic small vessel ischemic disease. Unchanged from prior. Electronically signed by: Latanya Diane On 02/19/2019 23:36:10 PM
[2019-02-20] VITALS: BP 110/59
[2019-02-20 04:00] VITALS: BP 125/68
[2019-02-20 05:13] LABS: HEMATOCRIT 37.6 % (42.0-52.0); HEMOGLOBIN 12.5 g/dl (13.5-17.5); MEAN CORPUSCULAR HEMOGLOBIN 30.1 pg (27.0-33.0); MEAN CORPUSCULAR HGB CONC 33.2 g/dl (32.0-36.5); MEAN CORPUSCULAR VOLUME 90.6 fl (80.0-96.0); PLATELET COUNT, AUTOMATED 127 10^3/uL (150-450); RED BLOOD COUNT 4.15 10^6/uL (4.30-6.10); WHITE BLOOD COUNT 5.6 10^3/uL (4.0-10.0)
[2019-02-20 05:32] LABS: BLOOD UREA NITROGEN 18 MG/DL (7-18); CALCIUM LEVEL 8.4 MG/DL (8.8-10.2); CARBON DIOXIDE LEVEL 29 MEQ/L (21-32); CHLORIDE LEVEL 107 MEQ/L (98-107); CK-MB VALUE MASS 3.1 NG/ML (<3.6); CPK CREATINE PHOSPHOKINASE 101 U/L (39-308); CREATININE FOR GFR 1.19 MG/DL (0.70-1.30); GLOMERULAR FILTRATION RATE > 60.0 (>49); GLUCOSE, FASTING 165 MG/DL (70-100); MB/CK RELATIVE INDEX 3.07 (< OR =4); POTASSIUM SERUM 4.1 MEQ/L (3.5-5.1); SODIUM LEVEL 140 MEQ/L (136-145); TROPONIN I < 0.02 NG/ML (< 0.10)
--- NOTE | 2019-02-20 05:46 | ECGEPIP ---
[facility] - ED Test Date: 2019-02-19 Pat Name: DAMIÁN ESPINOZA Department: Room: [place] [address] Gender: Male Electronics Mechanic: AURELIO : 1955 Requested By: Mayuri Espinoza Order Number: [id number] Reading MD: Mohan Barksdale Measurements Intervals [place] Rate: 53 P: 27 [place]: 171 QRS: QRSD: 108 T: QT: 394 QTc: 373 Interpretive Statements SINUS BRADYCARDIA INCOMPLETE RIGHT BUNDLE BRANCH BLOCK MINIMAL VOLTAGE CRITERIA FOR LVH, CONSIDER NORMAL VARIANT NSTTW ABNORMALITIES SIMILAR TO 07/14/17 Electronically Signed on 02-20-2019 5:45:49 EDT by Mohan Barksdale
[2019-02-20] MEDS: HumaLOG INSULIN (NovoLOG) PER UNIT SC SCH ×2 (07:35→12:04)
[2019-02-20 08:00] VITALS: BP 136/80
[2019-02-20] MEDS: ENOXAPARIN 40 MG/0.4 ML SYRINGE (J1650) SC SCH (08:28)
[2019-02-20] MEDS: NORTRIPTYLINE 25 MG CAP PO SCH (08:29)
[2019-02-20] MEDS: GABAPENTIN 300 MG CAP PO SCH ×2 (08:29→14:50)
--- NOTE | 2019-02-20 08:37 | IPNPDOC ---
Subjective Date Seen The patient was seen on 02/20/19. Subjective Chief Complaint/HPI TIA vs CVA Events since last encounter Admitted for facial numbness and balance disturbance at home. Symptoms have nearly resolved except for some mild left sided facial tingling/numbness. Cleared PT this am. neuro consult and echo completed: reports unavailable. MRI head: negative. MRI cervical spine: DDD with some areas of severe neural foramen narrowing. Patient anxious to return home. Constitutional: Denies: Chills, Fever, Night Sweats Pulmonary: Denies: Dyspnea, Cough Cardiovascular: Denies: Chest Pain, Palpitations, Orthopnea, Paroxysmal Noc. Dyspnea, Lt Headedness Gastrointestinal: Denies: Nausea, Vomiting, Abdominal Pain, Diarrhea, Constipation Psych: Reports: Mood Normal; Denies: Depression, Memory Issues Objective Physical Examination General Exam: Positive: Alert, Cooperative, No Acute Distress Eye Exam: Positive: PERRLA, Conjunctiva & lids normal, EOMI; Negative: Sclera icteric, Ptosis ENT Exam: Positive: Atraumatic, Pharynx Normal, Tongue Midline, Nares Patent; Negative: Mucous membr. moist/pink (dry), Pharyngeal Edema Neck Exam: Positive: Supple, +2 carotid pulse wo bruit; Negative: JVD, thyromegaly, Lymphadenopathy Chest Exam: Positive: Clear to auscultation, Normal air movement; Negative: Rales, Rhonchi, Wheezing, Diminished Heart Exam: Positive: Rate Normal, Bradycardic, Regular Rhythm, Normal S1, Normal S2; Negative: Gallops, Murmurs, Rubs Telemetry: Positive: Bradycardia Abdomen Exam: Positive: Normal bowel sounds, Soft; Negative: Tenderness, Hepatospenomegaly, Mass, Hernia Extremity Exam: Positive: Edema (+1 pitting edema noted on bilateral lower extremities); Negative: Clubbing, Cyanosis, Normal pulses (bradycardiac), Tenderness Skin Exam: Negative: Rash, Breakdown, Lesion Neuro Exam: Positive: Normal Gait, Normal Speech, Strength at 5/5 X4 ext, Cranial Nerves 3-12 NL, Other (NIHSS = 2) Psych Exam: Positive: Oriented x 3 Assessment /Plan Problems (1) Left facial numbness Status: Acute Problem Specific Plan: Consult Specialist Problem Text: Slowly improving. S/p neuro consult. Report unavailable. Most likely from Cervical spine. (2) DDD (degenerative disc disease), cervical Status: Chronic Problem Specific Plan: Consult Specialist Problem Text: may need Neurosurgery vs Ortho spine due to symptoms and MRI findings. 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 Response to Treatment: Stable Plan/VTE VTE Prophylaxis Ordered?: Yes (Lovenox 40mg SQ daily) Plan Diet: Continue Current (consistent carbohydrate) Activity: Bedrest (with commode) Therapy: OT, Speech Respiratory: Other Respiratory (oxygen therapy to maintain O2 > 92%) Diagnostics: Check Labs, Repeat Labs in AM, TTE Anticipated Discharge: Home VS, I&O, 24H, Fishbone Vital Signs/I&O Vital Signs Date Time Temp Pulse Resp B/P (MAP) Pulse Ox O2 Delivery O2 Flow Rate FiO2 02/20/19 04:00 97.8 68 18 125/68 (87) 95 02/19/19 18:31 Room Air I&O- Last 24 Hours up to 6 AM 02/20/19 06:00 Intake Total 1170 ml Balance 1170 ml Laboratory Data 24H LABS Laboratory Tests 2 02/19/19 11:18: Immature Granulocyte % (Auto) 0.6, White Blood Count 5.3, Red Blood Count 4.39, Hemoglobin 13.2L, Hematocrit 39.2L, Mean Corpuscular Volume 89.3, Mean Corpuscular Hemoglobin 30.1, Mean Corpuscular Hemoglobin Concent 33.7, Red Cell Distribution Width 13.1, Platelet Count 131L, Neutrophils (%) (Auto) 62.7, Lymphocytes (%) (Auto) 25.1, Monocytes (%) (Auto) 9.7H, Eosinophils (%) (Auto) 1.3, Basophils (%) (Auto) 0.6, Neutrophils # (Auto) 3.3, Lymphocytes # (Auto) 1.3L, Monocytes # (Auto) 0.5, Eosinophils # (Auto) 0.1, Basophils # (Auto) 0.0, Nucleated Red Blood Cells % (auto) 0.0, Prothrombin Time 13.5, Prothromb Time International Ratio 1.02, Activated Partial Thromboplast Time 30.5, Anion Gap 7L, Glomerular Filtration Rate > 60.0, Calcium Level 9.0, Aspartate Amino Transf (AST/SGOT) 40H, Alanine Aminotransferase (ALT/SGPT) 51, Alkaline Phosphatase 120H, Total Bilirubin 0.4, Direct Bilirubin 0.2, Ammonia 45H, Total Creatine Kinase 144, Creatine Kinase MB 4.7H, Creatine Kinase MB Relative Index 3.26, Troponin I < 0.02, Total Protein 7.4, Albumin 3.6, Albumin/Globulin Ratio 0.95L 02/19/19 18:17: Bedside Glucose (Misc Panel) 152H 02/19/19 19:00: Total Creatine Kinase 118, Creatine Kinase MB 3.6, Creatine Kinase MB Relative Index 3.05, Troponin I < 0.02, Thyroid Stimulating Hormone (TSH) 2.630 02/19/19 22:04: Bedside Glucose (Misc Panel) 220H 02/20/19 04:43: Nucleated Red Blood Cells % (auto) 0.0, Anion Gap 4L, Glomerular Filtration Rate > 60.0, Blood Urea Nitrogen 18, Creatinine 1.19, Sodium Level 140, Potassium Level 4.1, Chloride Level 107, Carbon Dioxide Level 29, Calcium Level 8.4L, Total Creatine Kinase 101, Creatine Kinase MB 3.1, Creatine Kinase MB Relative Index 3.07, Troponin I < 0.02 02/20/19 07:18: Bedside Glucose (Misc Panel) 143H CBC/BMP Laboratory Tests 02/19/19 11:18 Red Blood Count 4.39, Mean Corpuscular Volume 89.3, Mean Corpuscular Hemoglobin 30.1, Mean Corpuscular Hemoglobin Concent 33.7, Red Cell Distribution Width 13.1, Neutrophils (%) (Auto) 62.7, Lymphocytes (%) (Auto) 25.1, Monocytes (%) (Auto) 9.7 H, Eosinophils (%) (Auto) 1.3, Basophils (%) (Auto) 0.6, Neutrophils # (Auto) 3.3, Lymphocytes # (Auto) 1.3 L, Monocytes # (Auto) 0.5, Eosinophils # (Auto) 0.1, Basophils # (Auto) 0.0 02/20/19 04:43 Red Blood Count 4.15 L, Mean Corpuscular Volume 90.6, Mean Corpuscular Hemoglobin 30.1, Mean Corpuscular Hemoglobin Concent 33.2, Red Cell Distribution Width 13.1, Calcium Level 8.4 L, Total Creatine Kinase 101 Babs Vasquez [facility] Feb 20, 2019 08:37
[2019-02-20] MEDS ORDERED: OMEPRAZOLE 20 MG CAP PO SCH (09:00)
[2019-02-20] MEDS ORDERED: ASPIRIN 81 MG ENTERIC TAB PO SCH (09:00)
--- NOTE | 2019-02-20 10:20 | NUR ---
Patient did not have any signs of oral or pharyngeal dysphagia during bedside assessment. He demonstrated safe feeding strategies and was able to converse with the clinician while eating his breakfast w/no difficulties. Pt is edentulous at baseline, but this did not impact his ability to safely chew and swallow all trialed consistencies. ST recommends patient continue current recommended diet of regular solids and thin liquids. Speech therapy for dysphagia mngt is not necessary at this time. Addendum: 02/20/19 at 1023 by OPAL MORALES Amended: Links added.
[2019-02-20 12:00] VITALS: BP 107/73
[2019-02-20] MEDS ORDERED: ASPI81TAEC PO (13:07)
--- NOTE | 2019-02-20 17:41 | CR ---
DATE OF CONSULTATION: 02/20/2019 REQUESTING PROVIDER: Dr. Robbins. REASON FOR CONSULTATION: Left neck and arm paresthesias. HISTORY OF PRESENT ILLNESS: The patient is a 63-year-old male who was seen earlier in the day by primary care team and recommended to come to the hospital for slurred speech and numbness of the left neck and shoulder region. The patient has longstanding history of cervical spondylosis with left-sided radicular paresthesias and pain. The patient states that his speech difficulties were resulting from dry mouth from his nortriptyline. He did not have any slurred speech or aphasia. The patient states that he had some difficulty ambulating, but he attributes that to his chronic pain in the left leg, which was actually worse on that day. He denies any weakness of the arms or legs. He denies having any headache. He denies any change in vision, dysarthria, dysphasia or vertigo at this time. Head CT was negative despite having symptoms ongoing for the last 4-5 days. It was less likely a stroke. An MRI of the brain was recommended. MRI of the cervical spine was also recommended. The patient was started on aspirin 81 mg daily and he remains on Lovenox 40 mg as well. The patient is on Lipitor 40 mg daily. REVIEW OF SYSTEMS: 14-point review of systems obtained and is negative except as per history of present illness (HPI). HOME MEDICATIONS: - Lipitor 10 mg by mouth at bedtime - calcium by mouth daily - vitamin D3 2000 international units by mouth at bedtime - gabapentin 600 mg by mouth twice a day a.m. and noontime; 1200 mg daily at bedtime - insulin Lantus 20 units subcutaneous at bedtime - lisinopril/hydrochlorothiazide 10/12.5 mg by mouth daily - magnesium oxide 4 mg daily at bedtime - metformin 1000 mg by mouth twice a day - nadolol 20 mg by mouth at bedtime - nortriptyline 25 mg by mouth twice a day - omeprazole 40 mg by mouth daily - ranitidine 300 mg by mouth at bedtime - vitamin E 800 mg by mouth at bedtime - diclofenac, sodium, voltaren gel as needed ALLERGIES: PENICILLIN, AZITHROMYCIN. PAST MEDICAL HISTORY 1. 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 2. Diabetes. 3. Diabetic neuropathy. 4. Gastroesophageal reflux disease. 5. Hypertension. 6. Esophageal varices. PAST SURGICAL HISTORY: 1. Bilateral cataract surgery. 2. Cholecystectomy. 3. Colonoscopy. 4. Polypectomy. FAMILY HISTORY: Father with myocardial infarction in his 50s. Sibling alive with arteriovenous malformation (AVM) in the brain. SOCIAL HISTORY: Patient is a former smoker. Does not use alcohol often and denies use of any tobacco. PHYSICAL EXAMINATION: Blood pressure is 131/76, pulse rate is 57, oxygenation 94% on room air, temperature 97.8 degrees Fahrenheit. Current height 6 feet 0 inches, current weight is 115 kg. The patient is awake, alert, oriented person, place and time. Speech language comprehension and repetition are intact. Pupils are 3 mm round and reactive to light. Extraocular movements are intact in all directions without any sensory loss. There is no facial asymmetry on activation. Palate elevates symmetrically. Tongue is midline. The patient does not have any dysarthria, aphasia. Hearing is subjectively equal to finger rub. There is no pronator drift. Strength is 5/5 including bilateral deltoids, biceps, triceps, handgrip, iliopsoas, quadriceps and tibialis. Deep tendon reflexes are 2s throughout with reduced left biceps reflex and Achilles reflexes. Sensory is intact to light touch in all four extremities, slightly reduced in the C5-6 shoulder region compared to the right. Spurling sign is positive on the left. Reproducing same paresthesias of the neck and shoulder. Gait deferred. ASSESSMENT: 1. Ongoing neck paresthesias with cervicalgia with cervical spondylosis, likely radicular in nature. 2. MRI brain negative for any acute stroke. MRI cervical spine reveals left-sided severe foraminal narrowing at C5-6 region. PLAN: 1. Continue aspirin 81 mg by mouth daily, Lipitor 40 mg by mouth daily. 2. Recommend outpatient surgical evaluation for cervical spondylosis under the care of Dr. Ruperto Jordan. The patient does appear to be quite strong at this time. Patient may benefit from pain management for his ongoing neck and back pain.
--- NOTE | 2019-02-20 21:39 | ECHO ---
DATE OF PROCEDURE: 02/20/2019 REFERRING PHYSICIAN: Dr. Brad Patterson INDICATION: Cerebrovascular accident. Height 183 cm, weight 115 kg. MEASUREMENTS: IVS: 1.2 LV: 5.6 LVPW: 1.2 LA: 5.2 Aorta: 3.3 IVC: 1.3 Left atrial volume index: 29 Mitral E wave velocity: 51 A wave: 90 E prime septal: 4.8 E prime lateral: 6.1 FINDINGS: Study is of acceptable technical quality especially considering patient's body habitus. Left ventricle is borderline dilated but has normal left ventricular (LV) systolic function, I estimate left ventricular ejection fraction (LVEF) around 55-60%. No segmental wall motion abnormalities are appreciated. Right ventricle is also normal size and systolic function. Left atrium is mildly enlarged. Right atrium appears normal. Aortic valve has three cusps. It has mild sclerotic abnormalities but mobility is preserved. Mitral, tricuspid and pulmonic valves appear normal. No pericardial effusion is present. Inferior vena cava is normal size. Aortic root, aortic arch and abdominal aorta appear normal. Doppler interrogation of aortic valve reveals no stenosis or insufficiency. There is trace mitral, tricuspid and pulmonic insufficiency. Calculated pulmonary artery pressure is within normal limits. Mitral inflow pattern and tissue Doppler imaging of mitral annulus revealed grade 1 diastolic dysfunction. CONCLUSIONS: 1. Study is of acceptable technical quality. 2. Borderline enlarged left ventricle, normal LV systolic function and grade 1 diastolic dysfunction. 3. No significant valvular disease. 4. Normal central venous pressure and likely normal pulmonary artery pressure. COMMENT: Subacute bacterial endocarditis (SBE) prophylaxis is not recommended. No findings to explain etiology of CVA.
== END 2019-02-20 15:20 | disposition home or self-care (01) | DRG 347 ==
LOC: M ED 10:27 → M ED INP 13:36 → M ICU 18:40
PROVIDERS: ADMIT Internal Medicine; ATTEND Family Medicine
DX: M47.22 Other spondylosis with radiculopathy, cervical region (principal); I85.10 Secondary esophageal varices without bleeding; E11.40 Type 2 diabetes mellitus with diabetic neuropathy, unspecified; K75.81 Nonalcoholic steatohepatitis (NASH); K74.69 Other cirrhosis of liver; R20.2 Paresthesia of skin; Z79.899 Other long term (current) drug therapy; Z79.4 Long term (current) use of insulin; I10 Essential (primary) hypertension; K21.9 Gastro-esophageal reflux disease without esophagitis; Z88.0 Allergy status to penicillin; Z88.8 Allergy status to other drugs, medicaments and biological substances; Z87.891 Personal history of nicotine dependence

== ENCOUNTER → 2019-06-13 | Outpatient (REF) | payer BC ==
[~2019-06-13] MED LIST changes: +ASPI81TAEC PO; +CALCTAB15 PO; +LISI10TA15 PO; -LISI10TA2 PO; +MAGN400T2 PO; +NORT25CA2 PO; +VITA400C53 PO; +VOLT1GEL15 TD
[2019-06-13 11:40] LABS: ALBUMIN 3.6 GM/DL (3.2-5.2); ALT/SGPT 57 U/L (12-78); BILIRUBIN,TOTAL 0.5 MG/DL (0.2-1.0); BLOOD UREA NITROGEN 22 MG/DL (7-18); CALCIUM LEVEL 8.7 MG/DL (8.8-10.2); CARBON DIOXIDE LEVEL 28 MEQ/L (21-32); CHLORIDE LEVEL 108 MEQ/L (98-107); CHOLESTEROL LEVEL 133 MG/DL (<200); CPK CREATINE PHOSPHOKINASE 238 U/L (39-308); CREATININE FOR GFR 1.01 MG/DL (0.70-1.30); GLOMERULAR FILTRATION RATE > 60.0 (>49); GLUCOSE, FASTING 146 MG/DL (70-100); HDL CHOLESTEROL 39 MG/DL (>40); LDL CHOLESTEROL 59 MG/DL (<100); NON-HDL-C 94 MG/DL; POTASSIUM SERUM 4.2 MEQ/L (3.5-5.1); SODIUM LEVEL 142 MEQ/L (136-145); TRIGLYCERIDES LEVEL 175 MG/DL (<150)
== END ==
LOC: M SFHCPLAZ 09:24
PROVIDERS: ATTEND Family Medicine
DX: E78.2 Mixed hyperlipidemia (principal)

== ENCOUNTER 2019-07-25 13:32 | Outpatient (RCR) | payer BC ==
[~2019-07-25 13:32] MED LIST changes: -OMEP40CA2 PO; +OMEP40CA97 PO
== END 2019-08-04 ==
LOC: M PT 13:32
PROVIDERS: ATTEND Family Medicine
DX: Z47.89 Encounter for other orthopedic aftercare (principal)

== ENCOUNTER 2019-08-15 11:34 | Outpatient (RCR) | payer BC | END 2019-09-04 | LOC: M PT 11:34 | PROVIDERS: ATTEND Family Medicine | DX: M47.812 Spondylosis without myelopathy or radiculopathy, cervical region (principal) ==

== ENCOUNTER → 2019-10-31 | Outpatient (CLI) | payer BC ==
[2019-10-31 12:08] LABS: APPEARANCE, URINE CLEAR (CLEAR); BACTERIA, URINE AUTO NEGATIVE (NEGATIVE); BILIRUBIN, URINE AUTO NEGATIVE (NEGATIVE); BLOOD, URINE BLOOD NEGATIVE (NEGATIVE); COLOR, URINE YELLOW (YELLOW); GLUCOSE, URINE (UA) AUTO NEGATIVE (NEGATIVE); KETONE, URINE AUTO NEGATIVE (NEGATIVE); LEUKOCYTE ESTERASE, URINE AUTO NEGATIVE (NEGATIVE); NITRITE, URINE AUTO NEGATIVE (NEGATIVE); PROTEIN, URINE AUTO NEGATIVE (NEGATIVE); RBC, URINE AUTO 1 /HPF (0-3); SPECIFIC GRAVITY URINE AUTO 1.013 (1.002-1.035); SQUAMOUS EPITHELIAL CELL UR AU 0 /HPF (0-6); UROBILINOGEN, URINE AUTO 0.2 mg/dL (0.0-2.0); WBC, URINE AUTO 1 /HPF (0-3)
[2019-10-31 12:12] LABS: BASO % 0.5 % (0.0-1.0); EOS # 0.1 10^3/uL (0.0-0.5); EOS % 1.4 % (0.0-3.0); HEMATOCRIT 38.6 % (42.0-52.0); HEMOGLOBIN 12.9 g/dl (13.5-17.5); LYMPH # 1.4 10^3/uL (1.5-5.0); LYMPH % 24.2 % (24.0-44.0); MEAN CORPUSCULAR HEMOGLOBIN 29.8 pg (27.0-33.0); MEAN CORPUSCULAR HGB CONC 33.4 g/dl (32.0-36.5); MEAN CORPUSCULAR VOLUME 89.1 fl (80.0-96.0); MONO # 0.6 10^3/uL (0.0-0.8); MONO % 9.8 % (0.0-5.0); NEUTROPHILS # 3.6 10^3/uL (1.5-8.5); NEUTROPHILS % 63.7 % (36.0-66.0); PLATELET COUNT, AUTOMATED 162 10^3/uL (150-450); RED BLOOD COUNT 4.33 10^6/uL (4.30-6.10); WHITE BLOOD COUNT 5.6 10^3/uL (4.0-10.0)
[2019-10-31 12:18] LABS: ALBUMIN 3.8 GM/DL (3.2-5.2); ALT/SGPT 55 U/L (12-78); BILIRUBIN,TOTAL 0.8 MG/DL (0.2-1.0); BLOOD UREA NITROGEN 19 MG/DL (7-18); CALCIUM LEVEL 8.7 MG/DL (8.8-10.2); CARBON DIOXIDE LEVEL 30 MEQ/L (21-32); CHLORIDE LEVEL 105 MEQ/L (98-107); CREATININE FOR GFR 1.11 MG/DL (0.70-1.30); GLOMERULAR FILTRATION RATE > 60.0 (>49); GLUCOSE, FASTING 151 MG/DL (70-100); POTASSIUM SERUM 4.3 MEQ/L (3.5-5.1); SODIUM LEVEL 140 MEQ/L (136-145); TOTAL PROTEIN 7.3 GM/DL (6.4-8.2)
[2019-10-31 12:40] LABS: HEMOGLOBIN A1c 7.4 %
[2019-10-31 12:42] LABS: MALB URINE SIEMENS 17.3 MG/L; MAU/CREAT RATIO 16.3 MCG/MG (0.0-30.0)
== END ==
LOC: M PLALAB 09:30
PROVIDERS: ATTEND Family Medicine
DX: E11.69 Type 2 diabetes mellitus with other specified complication (principal); Z12.5 Encounter for screening for malignant neoplasm of prostate
CPT/HCPCS: 36415; 80053; 81001; 82043; 83036; 85025; G0103

== ENCOUNTER 2019-11-14 13:13 | Day surgery (SDC) | payer BC ==
[~2019-11-14] VITALS: Ht 182.9 cm; Wt 114.8 kg
[~2019-11-14 13:13] MED LIST changes: +CRES20TA2 PO; +JANU100T PO; +NS 1,000 ML IV ONE; +RANI15TA PO; +VITAD1000T PO
[2019-11-14] MEDS ORDERED: propofoL 200 MG/20 ML VIAL As Ordered ONE (14:08)
[2019-11-14] MEDS ORDERED: LIDOCAINE 2% INJ 100 MG/5 ML SDV (FOR ANES.) As Ordered ONE (14:09)
[2019-11-14] MEDS ORDERED: FAMO1TAB25 PO (14:09)
[2019-11-14] MEDS ORDERED: fentaNYL 100 MCG/2 ML INJECTION (J3010) As Ordered ONE (14:41)
--- NOTE | 2019-11-14 15:15 | ROOR ---
Patient Name: Amaury Sinha Procedure Date: 11/14/2019 2:57 PM Date of : 1955 Age: 64 Room: [facility] Gender: Male Note Status: Finalized Procedure: Upper GI endoscopy Indications: Cirrhosis rule out esophageal varices, Follow-up of esophageal varices Providers: Gage OGDEN MD Referring MD: Ernie Cardona MD Requesting Provider: Medicines: Monitored Anesthesia Care Complications: No immediate complications. Procedure: Pre-Anesthesia Assessment: - The heart rate, respiratory rate, oxygen saturations, blood pressure, adequacy of pulmonary ventilation, and response to care were monitored throughout the procedure. The Endoscope was introduced through the mouth, and advanced to the second part of duodenum. The upper GI endoscopy was accomplished without difficulty. The patient tolerated the procedure well. Findings: Grade I varices were found in the lower third of the esophagus. They were small in size. (Varices are small today, primary prevention/eradication not indicated today) The exam of the esophagus was otherwise normal. The entire examined stomach was normal. Mucosal flattening was found in the second portion of the duodenum. Biopsies for histology were taken with a cold forceps for evaluation of celiac disease. The exam of the duodenum was otherwise normal. Impression: - Grade I esophageal varices. (Varices are small today, primary prevention/eradication not indicated today) - Normal stomach. - Flattened mucosa was found in the duodenum. Biopsied. - Otherwise normal duodenum. Recommendation: - Observe patient's clinical course. - Start/continue a Non-selective Beta Kim such as Propranolol or Nadolol, titrate to heart rate. Gage Ogden MD Gage OGDEN MD 11/14/2019 3:15:00 PM Electronically signed by Gage OGDEN MD Number of Addenda: 0 Note Initiated On: 11/14/2019 2:57 PM Estimated Blood Loss: Estimated blood loss: none.
[2019-11-14 15:40] VITALS: BP 138/77
== END 2019-11-14 15:45 | disposition home or self-care (01) ==
LOC: M OPP 13:13
PROVIDERS: ATTEND Internal Medicine Gastroenterology
DX: I85.10 Secondary esophageal varices without bleeding (principal); K31.89 Other diseases of stomach and duodenum; K74.60 Unspecified cirrhosis of liver; E11.9 Type 2 diabetes mellitus without complications; Z79.4 Long term (current) use of insulin; Z79.82 Long term (current) use of aspirin; Z79.899 Other long term (current) drug therapy; Z88.8 Allergy status to other drugs, medicaments and biological substances; Z88.0 Allergy status to penicillin
CPT/HCPCS: 43239; 88305; J3010

== ENCOUNTER → 2020-04-07 | Outpatient (CLI) | payer BC ==
[~2020-04-07] MED LIST changes: +D31000TA2 PO; +FAMO1TAB25 PO; -NS 1,000 ML IV ONE; -VITAD1000T PO
--- NOTE | 2020-05-27 08:19 | REP ---
RIGHT UPPER QUADRANT ULTRASOUND: HISTORY: Cirrhosis FINDINGS: Real time sonographic evaluation of the right upper quadrant is performed. The patient has had a prior cholecystectomy. There is no intrahepatic or extrahepatic biliary dilatation, the common bile duct measuring 6 mm. The liver demonstrates diffuse heterogeneous increased echotexture compatible with diffuse fibrofatty infiltration. No gross liver mass is seen. The pancreas is not well seen due to overlying bowel gas, the visualized portions are grossly unremarkable. The right kidney demonstrates no hydronephrosis with normal size, 11.6 cm in length. There is no ascites. IMPRESSION: Diffuse fibrofatty infiltration of the liver. Status post cholecystectomy. No gross liver mass or ascites. MTDD
== END ==
LOC: M RAD 08:00
PROVIDERS: ATTEND Internal Medicine Gastroenterology
DX: K74.60 Unspecified cirrhosis of liver (principal); Z90.49 Acquired absence of other specified parts of digestive tract

== ENCOUNTER → 2020-05-29 | Outpatient (CLI) | payer BC ==
[2020-05-29 13:25] LABS: BASO % 0.7 % (0.0-1.0); EOS # 0.1 10^3/uL (0.0-0.5); EOS % 1.6 % (0.0-3.0); HEMATOCRIT 39.3 % (42.0-52.0); HEMOGLOBIN 12.7 g/dl (13.5-17.5); LYMPH # 1.2 10^3/uL (1.5-5.0); LYMPH % 28.9 % (24.0-44.0); MEAN CORPUSCULAR HEMOGLOBIN 28.7 pg (27.0-33.0); MEAN CORPUSCULAR HGB CONC 32.3 g/dl (32.0-36.5); MEAN CORPUSCULAR VOLUME 88.9 fl (80.0-96.0); MONO # 0.4 10^3/uL (0.0-0.8); MONO % 9.9 % (0.0-5.0); NEUTROPHILS # 2.5 10^3/uL (1.5-8.5); NEUTROPHILS % 58.4 % (36.0-66.0); PLATELET COUNT, AUTOMATED 129 10^3/uL (150-450); RED BLOOD COUNT 4.42 10^6/uL (4.30-6.10); WHITE BLOOD COUNT 4.3 10^3/uL (4.0-10.0)
[2020-05-29 13:35] LABS: INR 1.08; PARTIAL THROMBOPLASTIN TIME 33.5 SECONDS (24.2-38.5); PROTHROMBIN TIME 14.2 SECONDS (12.5-14.3)
[2020-05-29 13:46] LABS: BLOOD UREA NITROGEN 19 MG/DL (7-18); CALCIUM LEVEL 9.1 MG/DL (8.8-10.2); CARBON DIOXIDE LEVEL 31 MEQ/L (21-32); CHLORIDE LEVEL 105 MEQ/L (98-107); CREATININE FOR GFR 1.22 MG/DL (0.70-1.30); GLOMERULAR FILTRATION RATE > 60.0 (>49); GLUCOSE, FASTING 145 MG/DL (70-100); POTASSIUM SERUM 4.8 MEQ/L (3.5-5.1); SODIUM LEVEL 141 MEQ/L (136-145)
[2020-05-29 13:47] LABS: ALBUMIN 3.8 GM/DL (3.2-5.2); ALT/SGPT 69 U/L (12-78); BILIRUBIN,TOTAL 0.6 MG/DL (0.2-1.0); CHOLESTEROL LEVEL 115 MG/DL (<200); CHOLESTEROL RISK RATIO 3.026 (<5); HDL CHOLESTEROL 38 MG/DL (>40); LDL CHOLESTEROL 49 MG/DL (<100); NON-HDL-C 77 MG/DL; TOTAL PROTEIN 7.3 GM/DL (6.4-8.2); TRIGLYCERIDES LEVEL 141 MG/DL (<150)
[2020-05-29 13:52] LABS: PTH INTACT 35.3 PG/ML (18.5-88.0); TOTAL 25(OH) VITAMIN D 41.4 NG/ML (30.0-100.0)
[2020-05-29 13:53] LABS: VITAMIN B12 LEVEL 560 PG/ML (247-911)
[2020-06-03 14:41] LABS: ALBUMIN 4.17 GM/DL (3.29-5.55); ALBUMIN % 57.1 % (55.8-66.1); ALPHA-1-GLOBULIN % 3.8 % (2.9-4.9); ALPHA-1-GLOBULINS 0.28 GM/DL (0.17-0.41); ALPHA-2-GLOBULINS 0.74 GM/DL (0.42-0.99); ALPHA-2-GLOBULINS % 10.2 % (7.1-11.8); BETA-1-GLOBULINS % 6.8 % (4.7-7.2); BETA-2-GLOBULINS 0.52 GM/DL (0.19-0.55); BETA-2-GLOBULINS % 7.1 % (3.2-6.5)
== END ==
LOC: M PLALAB 09:40
PROVIDERS: ATTEND Family Medicine
DX: E78.2 Mixed hyperlipidemia (principal); I10 Essential (primary) hypertension; Z12.5 Encounter for screening for malignant neoplasm of prostate; E11.69 Type 2 diabetes mellitus with other specified complication; K74.60 Unspecified cirrhosis of liver

== ENCOUNTER → 2020-10-23 | Outpatient (REF) | payer BC ==
[~2020-10-23] MED LIST changes: +GABA-282 PO; -GABA-843 PO
[2020-10-23 14:07] LABS: BASO % 0.5 % (0.0-1.0); EOS # 0.1 10^3/uL (0.0-0.5); EOS % 1.3 % (0.0-3.0); HEMATOCRIT 36.7 % (42.0-52.0); HEMOGLOBIN 11.9 g/dl (13.5-17.5); LYMPH # 1.2 10^3/uL (1.5-5.0); LYMPH % 30.8 % (24.0-44.0); MEAN CORPUSCULAR HEMOGLOBIN 28.7 pg (27.0-33.0); MEAN CORPUSCULAR HGB CONC 32.4 g/dl (32.0-36.5); MEAN CORPUSCULAR VOLUME 88.4 fl (80.0-96.0); MONO # 0.5 10^3/uL (0.0-0.8); MONO % 13.3 % (2.0-8.0); NEUTROPHILS % 53.8 % (36.0-66.0); PLATELET COUNT, AUTOMATED 125 10^3/uL (150-450); RED BLOOD COUNT 4.15 10^6/uL (4.30-6.10); WHITE BLOOD COUNT 3.8 10^3/uL (4.0-10.0)
[2020-10-23 14:37] LABS: ALBUMIN 3.7 GM/DL (3.2-5.2); ALT/SGPT 74 U/L (12-78); BILIRUBIN,TOTAL 0.4 MG/DL (0.2-1.0); BLOOD UREA NITROGEN 14 MG/DL (7-18); CARBON DIOXIDE LEVEL 31 MEQ/L (21-32); CHLORIDE LEVEL 104 MEQ/L (98-107); CREATININE FOR GFR 1.03 MG/DL (0.70-1.30); FERRITIN 22 NG/ML (26-388); GLOMERULAR FILTRATION RATE > 60.0 (>49); GLUCOSE, FASTING 164 MG/DL (70-100); IRON (FE) 55 UG/DL (65-175); NT-PRO BNP 40 PG/ML (<125); PERCENT SATURATION 15.9 % (19.7-50.0); POTASSIUM SERUM 4.7 MEQ/L (3.5-5.1); SODIUM LEVEL 139 MEQ/L (136-145); TOTAL IRON BINDING CAPACITY 347 UG/DL (250-450); TOTAL PROTEIN 6.7 GM/DL (6.4-8.2)
[2020-10-23 15:13] LABS: HEMOGLOBIN A1c 7.2 %
== END ==
LOC: M SFHCPLAZ 11:49
PROVIDERS: ATTEND Family Medicine
DX: E11.69 Type 2 diabetes mellitus with other specified complication (principal); D63.8 Anemia in other chronic diseases classified elsewhere

== ENCOUNTER → 2020-11-12 | Outpatient (CLI) | payer BC ==
[~2020-11-12] MED LIST changes: +ASPI-569 PO; -ASPI81TAEC PO
--- NOTE | 2020-11-12 09:00 | REP ---
INDICATION: CIRRHOSIS OF LIVER COMPARISON: None. TECHNIQUE: Real time bragg scale ultrasound examination using curved array transducer. FINDINGS: Liver demonstrates heterogeneous echotexture with mildly scalloped borders consistent with cirrhosis. No focal hepatic lesion identified. A patent umbilical vein is suspected. Evidence for prior cholecystectomy with normal common bile duct measuring 4.8 mm diameter. Right kidney is normal in reniform shape without hydronephrosis and measures 11.3 x 6.1 x 5.1 cm. No ascites in the visualized right upper quadrant. IMPRESSION: Findings consistent with cirrhosis. No focal hepatic lesion identified. <Electronically signed by Charan Alfaro > 11/12/20 0889
== END ==
LOC: M RAD 08:12
PROVIDERS: ATTEND Family Medicine
DX: K74.60 Unspecified cirrhosis of liver (principal)

== ENCOUNTER → 2021-01-12 | Outpatient (CLI) | payer BC | LOC: M LABSMTC 09:39 | PROVIDERS: ATTEND Anesthesiology | DX: Z01.812 Encounter for preprocedural laboratory examination (principal) ==

== ENCOUNTER → 2021-01-14 | Outpatient (CLI) | payer BC | LOC: M LAB 12:02 | PROVIDERS: ATTEND Physician Assistant Medical | DX: K74.60 Unspecified cirrhosis of liver (principal) ==

== ENCOUNTER 2021-01-16 07:59 | Day surgery (SDC) | payer BC ==
[~2021-01-16] VITALS: Ht 182.9 cm; Wt 116.8 kg
[~2021-01-16 07:59] MED LIST changes: +NS 1,000 ML IV ONE
[2021-01-16] MEDS ORDERED: LIDOCAINE 2% MDV 20ML VIAL As Ordered ONE (09:06)
[2021-01-16] MEDS ORDERED: propofoL 200 MG/20 ML VIAL As Ordered ONE (09:06)
[2021-01-16] MEDS ORDERED: fentaNYL 100 MCG/2 ML INJECTION (J3010) As Ordered ONE (09:07)
--- NOTE | 2021-01-16 09:32 | ROOR ---
Patient Name: Iron Sinha Procedure Date: 01/16/2021 9:11 AM Date of : 1955 Age: 65 Room: [facility] Gender: Male Note Status: Finalized Procedure: Upper GI endoscopy Indications: Cirrhosis rule out esophageal varices, Follow-up of esophageal varices Providers: Gage Arreguin MD Referring MD: Ernie Cardona MD Requesting Provider: Medicines: Monitored Anesthesia Care Complications: No immediate complications. Procedure: Pre-Anesthesia Assessment: - The heart rate, respiratory rate, oxygen saturations, blood pressure, adequacy of pulmonary ventilation, and response to care were monitored throughout the procedure. The Endoscope was introduced through the mouth, and advanced to the second part of duodenum. The upper GI endoscopy was accomplished without difficulty. The patient tolerated the procedure well. Findings: Grade I varices were found in the lower third of the esophagus. (Varices are small today, primary prevention/eradication not indicated today) The exam of the esophagus was otherwise normal. A few 5 mm sessile polyps were found in the gastric antrum. This was biopsied with a cold forceps for histology. The exam of the stomach was otherwise normal. The examined duodenum was normal. Impression: - Grade I esophageal varices. (Varices are small today, primary prevention/eradication not indicated today) - A few gastric polyps. Biopsied. - Normal examined duodenum. Recommendation: - Weight loss for MEHTA/cirrhosis/portal hypertension - Observe patient's clinical course. - Repeat upper endoscopy in 1 year for surveillance. Procedure Code(s): --- Professional --- 11750, Esophagogastroduodenoscopy, flexible, transoral; with biopsy, single or multiple Diagnosis Code(s): --- Professional --- K74.60, Unspecified cirrhosis of liver I85.10, Secondary esophageal varices without bleeding K31.7, Polyp of stomach and duodenum CPT copyright 2019 [employer]. All rights reserved. The codes documented in this report are preliminary and upon metallographer review may be revised to meet current compliance requirements. Gage Arreguin MD Gage Arreguin MD 01/16/2021 9:32:13 AM Electronically signed by Gage Arreguin MD Number of Addenda: 0 Note Initiated On: 01/16/2021 9:11 AM Estimated Blood Loss: Estimated blood loss: none.
[2021-01-16 09:59] VITALS: BP 129/71
== END 2021-01-16 10:15 | disposition home or self-care (01) ==
LOC: M OPP 07:59
PROVIDERS: ATTEND Internal Medicine Gastroenterology
DX: K74.60 Unspecified cirrhosis of liver (principal); K31.7 Polyp of stomach and duodenum; I85.10 Secondary esophageal varices without bleeding; Z79.4 Long term (current) use of insulin; Z79.82 Long term (current) use of aspirin; Z79.899 Other long term (current) drug therapy; Z88.0 Allergy status to penicillin; Z88.1 Allergy status to other antibiotic agents; Z87.891 Personal history of nicotine dependence
CPT/HCPCS: 43239; 88305; 88342; J3010

== ENCOUNTER → 2021-02-26 | Outpatient (REF) | payer BC ==
[~2021-02-26] MED LIST changes: +FAMO10TA50 PO; -FAMO1TAB25 PO; -NS 1,000 ML IV ONE; +OMEP40CA4 PO; -OMEP40CA97 PO
[2021-02-26 15:31] LABS: BASO % 0.7 % (0.0-1.0); EOS # 0.1 10^3/uL (0.0-0.5); EOS % 1.2 % (0.0-3.0); HEMATOCRIT 40.8 % (42.0-52.0); HEMOGLOBIN 13.3 g/dl (13.5-17.5); LYMPH # 1.4 10^3/uL (1.5-5.0); LYMPH % 24.5 % (24.0-44.0); MEAN CORPUSCULAR HEMOGLOBIN 28.7 pg (27.0-33.0); MEAN CORPUSCULAR HGB CONC 32.6 g/dl (32.0-36.5); MEAN CORPUSCULAR VOLUME 87.9 fl (80.0-96.0); MONO # 0.6 10^3/uL (0.0-0.8); NEUTROPHILS # 3.5 10^3/uL (1.5-8.5); NEUTROPHILS % 62.1 % (36.0-66.0); PLATELET COUNT, AUTOMATED 144 10^3/uL (150-450); RED BLOOD COUNT 4.64 10^6/uL (4.30-6.10); WHITE BLOOD COUNT 5.7 10^3/uL (4.0-10.0)
[2021-02-26 16:07] LABS: HEMOGLOBIN A1c 7.6 %
[2021-02-26 16:20] LABS: ALBUMIN 3.8 GM/DL (3.2-5.2); ALT/SGPT 98 U/L (12-78); BILIRUBIN,TOTAL 0.7 MG/DL (0.2-1.0); BLOOD UREA NITROGEN 18 MG/DL (7-18); CALCIUM LEVEL 9.1 MG/DL (8.8-10.2); CARBON DIOXIDE LEVEL 30 MEQ/L (21-32); CHLORIDE LEVEL 105 MEQ/L (98-107); CREATININE FOR GFR 1.02 MG/DL (0.70-1.30); FERRITIN 17 NG/ML (26-388); FREE T4 0.82 NG/DL (0.76-1.46); GLOMERULAR FILTRATION RATE > 60.0 (>49); GLUCOSE, FASTING 182 MG/DL (70-100); NT-PRO BNP 43 PG/ML (<125); POTASSIUM SERUM 5.2 MEQ/L (3.5-5.1); SODIUM LEVEL 139 MEQ/L (136-145); TOTAL 25(OH) VITAMIN D 38.3 NG/ML (30.0-100.0); TOTAL PROTEIN 7.7 GM/DL (6.4-8.2)
== END ==
LOC: M SFHCPLAZ 13:18
PROVIDERS: ATTEND Family Medicine
DX: D50.9 Iron deficiency anemia, unspecified (principal); E55.9 Vitamin D deficiency, unspecified; E11.69 Type 2 diabetes mellitus with other specified complication; Z12.5 Encounter for screening for malignant neoplasm of prostate; K74.60 Unspecified cirrhosis of liver; E78.2 Mixed hyperlipidemia

== ENCOUNTER → 2021-07-07 | Outpatient (CLI) | payer BC ==
[2021-07-07 15:50] LABS: BASO % 0.7 % (0.0-1.0); EOS # 0.1 10^3/uL (0.0-0.5); EOS % 1.5 % (0.0-3.0); HEMATOCRIT 40.3 % (42.0-52.0); HEMOGLOBIN 13.2 g/dl (13.5-17.5); LYMPH # 1.4 10^3/uL (1.5-5.0); LYMPH % 31.1 % (24.0-44.0); MEAN CORPUSCULAR HEMOGLOBIN 28.9 pg (27.0-33.0); MEAN CORPUSCULAR HGB CONC 32.8 g/dl (32.0-36.5); MEAN CORPUSCULAR VOLUME 88.2 fl (80.0-96.0); MONO # 0.4 10^3/uL (0.0-0.8); MONO % 8.9 % (2.0-8.0); NEUTROPHILS # 2.6 10^3/uL (1.5-8.5); NEUTROPHILS % 57.4 % (36.0-66.0); PLATELET COUNT, AUTOMATED 141 10^3/uL (150-450); RED BLOOD COUNT 4.57 10^6/uL (4.30-6.10); WHITE BLOOD COUNT 4.6 10^3/uL (4.0-10.0)
[2021-07-07 16:20] LABS: ALBUMIN 3.7 GM/DL (3.2-5.2); ALT/SGPT 78 U/L (12-78); BILIRUBIN,TOTAL 0.7 MG/DL (0.2-1.0); BLOOD UREA NITROGEN 16 MG/DL (7-18); CALCIUM LEVEL 9.2 MG/DL (8.8-10.2); CARBON DIOXIDE LEVEL 32 MEQ/L (21-32); CHLORIDE LEVEL 105 MEQ/L (98-107); CHOLESTEROL LEVEL 139 MG/DL (<200); CHOLESTEROL RISK RATIO 3.756 (<5); CREATININE FOR GFR 1.07 MG/DL (0.70-1.30); FERRITIN 23 NG/ML (26-388); GLOMERULAR FILTRATION RATE > 60.0 (>49); GLUCOSE, FASTING 151 MG/DL (70-100); HDL CHOLESTEROL 37 MG/DL (>40); LDL CHOLESTEROL 61 MG/DL (<100); MAGNESIUM LEVEL 2.1 MG/DL (1.8-2.4); NON-HDL-C 102 MG/DL; POTASSIUM SERUM 4.1 MEQ/L (3.5-5.1); SODIUM LEVEL 139 MEQ/L (136-145); TOTAL PROTEIN 7.4 GM/DL (6.4-8.2); TRIGLYCERIDES LEVEL 203 MG/DL (<150)
[2021-07-07 16:26] LABS: CREATININE, URINE 47.5 MG/DL; MALB URINE SIEMENS 10.1 MG/L; MAU/CREAT RATIO 21.2 MCG/MG (0.0-30.0)
== END ==
LOC: M PLALAB 12:33
PROVIDERS: ATTEND Family Medicine
DX: D50.9 Iron deficiency anemia, unspecified (principal); I50.32 Chronic diastolic (congestive) heart failure; E78.2 Mixed hyperlipidemia

== ENCOUNTER 2021-08-06 14:49 | Emergency (ER) | payer BC ==
[2021-08-06] MEDS ORDERED: NS 1,000 ML IV ONE (15:15)
[2021-08-06] MEDS: ALBUTEROL 90 MCG/ACT 8GM HFA INHALER INH SCH ×2 (15:39→16:24)
--- OUTSIDE RECORDS SUMMARY | 2021-08-06 15:50 | CCD | Continuity of Care Document ---
Author Author Iron [facility] Organization Unknown Address [address], [address] [place] [address] Phone [phone] Care Team Providers Care Restaurant Manager Name Role Phone Ernie Cardona M.D. AUTM [phone] Problems Description No Active Problems Social History Type Date Description Comments Sex Unknown ETOH Use Denies alcohol use Tobacco Use Start: Unknown Non Smoker Allergies, Adverse Reactions, Alerts Active Allergies Criticality Reaction | Severity Comments Date Zomax Unable to assess criticality 01/14/2014 Penicillins Unable to assess criticality 01/14/2014 Medications Active Medications SIG Qnty Indications Ordering Provide r Date Colace 100mg Capsules take one capsule by mouth twice daily. 30caps K74.60 Gage Arreguin MD 05/10/[address] 1 by mouth every day 30caps Gage Arreguin MD 05/24/2014 Nadolol 20mg Tablets take 1 tablets by mouth daily for portal hypertension 30tabs Gage Arreguin MD 05/24/2014 Lisinopril/Hydrochlorothiazide 10-12.5mg Tablets daily Unknown Metformin HCL ER 1000mg Tablets ER 24HR po bid 60tabs Unknown Mens 50+ Multi Vitamin & Mineral Formula Tablets Unknown Lantus 100Unit/ML Solution 50 units at hs Unknown Vitamin D 2000Unit Tablets da terry Unknown Gabapentin 600mg Tablets 1 by mouth in the Am and afternoon, 2 at hs Unknown Nortriptyline HCL 25mg Capsules bid Unknown Crestor 20mg Tablets 1 tab da terry Unknown Aspirin Adult Low Dose 81mg Tablet s DR 1 by mouth every day Unknown Famotidine 20mg Tablets 1 by mouth at hs Unknown Januvia 100mg Tablets once da terry Unknown Immunizations Description No Information Available Vital Signs Date Vital Result Comment 05/25/2021 8:52am BP Systolic 130 mmHg BP Diastolic 82 mmHg Height 72 inches 6'0" Weight 256.00 lb BMI (Body Mass Index) 34.7 kg/m2 [place] Body Weight 178 lb Weight 116.122 kg BSA (Body Surface Area) 2.37 m2 11/24/2020 10:54am BP Systolic 147 mmHg BP Diastolic 76 mmHg Height 72 inches 6'0" Weight 256.00 lb BMI (Body Mass Index) 34.7 kg/m2 [place] Body Weight 178 lb Weight 116.122 kg BSA (Body Surface Area) 2.37 m2 Results Test Acquired Date Facility Test Result H/L Range Note Laboratory test finding 01/16/2021 [facility] [address] [place] [address] [phone] Pathology Request For Service (SEE NOTE) 1 Laboratory test finding 01/14/2021 [facility] [address], [place] [id number] [phone] Alpha Fetoprotein Tumor Quant 2.3 NG/ML Normal <8 .1 2, 3 1 FINAL DIAGNOSIS Gastric polyps, biopsy: Gastric mucosa with hyperplastic polyp. No evidence for H. pylori like organisms on H&E and immunohistochemical staining. 01/20/2021 - 907 CLINICAL DIAGNOSIS Esophageal varices 01/16/2021 - 1431 GROSS DIAGNOSIS Received in formalin labeled "biopsy gastric polyps" and consists of two fragments of wilson tissue 0.4 x 0.2 x 0.2 cm. in aggregate. All in one. -SV 01/16/2021 - 1431 Signed CHUCKY HOOPER MD 01/20/2021 0908 2 THE AFP ASSAY IS PERFORMED O N THE [employer] BY CHEMILUMINESCENCE AND SHOULD NOT BE COMPARED INTERCHANGEABLY WITH OTHER METHODS. IT SHOULD NOT BE USED ALONE A SCREENING TEST OR DIAGNOSIS FOR THE PRESENCE OR ABSENCE OF MALIGNANT DISEASE. THESE RESULTS ARE NOT INTERPRETABLE IN FEMALES. PREDICTIONS OF DISEASE RECURRENCE SHOULD NOT BE BASED SOLELY ON VALUES OBTAINED FROM SERIAL PATIENT SERUM VALUES. 3 01/22/21 (Thr January 22) 10:46 AM JESSENIA [facility] Normal. Procedures Date Code Description Status 05/25/2021 19898 Office/Outpatient Established Mo d MDM 30-39 Min Completed 01/16/2021 29102 Endoscopy Upper GI Biopsy Comple sue 11/24/2020 90801 Office/Outpatient Established Lo w MDM 20-29 Min Completed Medical Devices Description No Information Available Encounters Type Date Location Provider Dx Diagnosis Office Visit 05/25/2021 9:00a [facility] ctice JesseniaJENNIFER Balbuena K74.60 Unspecified cirrhosis of [place] er I85.00 Esophageal varices without b leeding K59.00 Constipation, unspecified Office Visit 11/24/2020 11:00a [facility] JENNIFER Connolly K74.60 Unspecified cirrhosis of [place]th er I85.00 Esophageal varices without b leeding K59.00 Constipation, unspecified Assessments Date Code Description Provider 05/25/2021 K74.60 Unspecified cirrhosis of liver M VANDANA ChaconC 05/25/2021 I85.00 Esophageal varices without bleed ing Jessenia Wyman RPA-C 05/25/2021 K59.00 Constipation, unspecified Meliss a JENNIFER Null 01/16/2021 K31.7 Polyp of stomach and duodenum Da monae Arreguin MD 01/16/2021 K74.60 Unspecified cirrhosis of liver D jonathan Arreguin MD 01/16/2021 I85.10 Secondary esophageal varices wit hout bleeding Gage Arreguin MD 11/24/2020 K74.60 Unspecified cirrhosis of liver M JENNIFER Chacon 11/24/2020 I85.00 Esophageal varices without bleed ing JENNIFER Connolly 11/24/2020 K59.00 Constipation, unspecified Meliss a JENNIFER Null Plan of Treatment 05/25/2021 - JENNIFER Connolly* K74.60 Unspecified cirrhosis of liver * I85.00 Esophageal varices without bleeding * K59.00 Constipation, unspecified * * Comments:* Patient verbalized understanding of above plans and will seek medical attention for any acute chanes. Will monitor. * Follow up:* Recall 01/2021 (re-check cirrhosis and schedule EGD). Functional Status Description No Information Available Mental Status Description No Information Available Referrals Description No Information Available
--- OUTSIDE RECORDS SUMMARY | 2021-08-06 15:50 | CCD ---
Author Author [facility] Organization [facility] Address Unknown Phone Unavailable Care Team Providers Care Cad Application Support Specialist Name Role Phone Ernie Cardona Unavailable PROBLEMS Type Condition ICD9-CM Code DOS13-FL Code Onset Dates Condition S tatus W/U Status Risk SNOMED Code Notes Problem Esophageal reflux K21.9 Active confirmed 23 2245359 Problem Personal history of tobacco use, presenting hazards to health Z87.891 Active confirmed 992611263 Problem Vitamin D deficiency E55.9 Active confirmed 81334989 Problem Obesity E66.9 Active confirmed 555226079 Problem Mixed hyperlipidemia E78.2 Active confirmed 298881504 Problem Essential (primary) hypertension I10 Active conf irmed 78146463 Problem Esophageal varices I85.00 Active confirmed 2 9483768 Problem ED (erectile dysfunction) N52.9 Active confirmed 007865198 Problem Type 2 diabetes mellitus with other specified complication E11.69 Active confirmed 11612984 Problem Pancytopenia D61.818 Active confirmed 197875 005 Problem Diabetic polyneuropathy associated with type 2 d iabetes mellitus E11.42 Active confirmed 24070847 Problem Venous insufficiency of both lower extremities I87 .2 Active confirmed 834235187 Problem Prostate cancer screening Z12.5 Active confirmed 983034971 Problem Urinary calculus N20.9 Active confirmed 371 399757 Problem Chronic diastolic congestive heart failure I50.32 Active confirmed 731928991 Problem DJD (degenerative joint disease), lumbar M47.816 Active confirmed 072329192 Problem Cirrhosis of liver K74.60 Active confirmed 1 7740779 Problem Chronic eczema L30.9 Active confirmed 89806 003 Problem Cervical spondylosis M47.812 Active confirmed 400103357 Problem Headache, temporal R51 Active confirmed 4 1965177 Problem Iron deficiency anemia, unspecified iron deficiency an emia type D50.9 Active confirmed 92925308 ALLERGIES Allergen (clinical drug ingredient) Drug/Non Drug Allergy do cumented on EMR Reaction Allergy Type Onset Date Status zomax Rash Non Drug Allergy Active Penicillin (For Allergies Use Only) Rash Drug Allerg y Active ENCOUNTERS from 1955 to 2021-08-05 Encounter Location Date Provider Diagnosis [place] [id number] [facility] [phone] [place] [address] Jul, Ernie Cardona IMMUNIZATIONS Vaccine Route Administration Date Status COVID-19 dose #1 given elsewhere Unspecified IM Intramuscular [facility] 2020 Administered Influenza 18 yrs & older Flublok Unknown Aug 01, 2018 Refused Pneumococcal 0.5mL Prevnar 13 IM Intramuscular Aug 23, 2018 A dministered SOCIAL HISTORY Tobacco Use: Social History Observation Description Date Details (start date - stop date) Former Smoker Sex Assigned At : Social History Observation Description Sex Assigned At Unknown Language: Question Answer Notes Languages spoken: Pashto Sikh: Question Answer Notes Sikh 08 [employer] Sexual Hx: Question Answer Notes Had sex in the last 12 months (vaginal, oral, or anal)? Yes Have you ever had an STD? No with Women only Use protection? No Alcohol Screening: Question Answer Notes Did you have a drink containing alcohol in the past year? Ye s Points 1 Interpretation Negative How often did you have six or more drinks on one occas ion in the past year? Never (0 points) How many drinks did you have on a typica l day when you were drinking in the past year? 1 or 2 (0 points) How often did you have a drink containing alcohol in t he past year? Monthly or less (1 point) BMI Care Goal Follow-Up Question Answer Notes Above Normal BMI Follow-Up Giving encouragement to exercise Tobacco Use: Question Answer Notes Are you a: former smoker How long has it been since you last smoked? 5-10 years REASON FOR REFERRAL No Information VITAL SIGNS No information MEDICATIONS Medication SIG (Take, Route, Frequency, Duration) Notes Start Da te End Date Status Pen [place] 16" 31G X 5 MM ICD10 = E11.9 subcutaneou sly before bedtime with Lantus for 90 day(s) Active Voltaren 1 % use for back pain Transdermal four times a day Active Nortriptyline HCl 25 MG 1 capsule Orally bid for 30 Days Active Nadolol 20 mg 1 tablet Orally Once a day (Dr. Arreguin) for 30 Days Active COMPRESSION STOCKINGS 15-20 mmHg DIRECTED _ wear bi lateral lower extremites when upright for 30 Days Active Lantus SoloStar 100 UNIT/ML 50 units Subcutaneous before bed time for 30 day(s) Active Colace 100 MG 1 capsule as needed Orally bid Jul, Active Omeprazole 20 MG 2 capsules Orally before breakfast for 90 day(s) Active Gabapentin 600 MG 1 tablet Orally 1 in AM, 1 m id and 2 at bedtime for 30 day(s) Active Ferrous Sulfate 325 (65 Fe) MG 1 tablet Orally every other day f or day(s) Feb, Active Blood Glucose Test - one touch verio subcutaneous ly dx: e11.9 twice a day for 30 Days Active Lisinopril/HCTZ 10/12.5mg 1 tab(s) p.o. once a day for 90 day(s) Active metFORMIN HCl 1000 MG 1 tablet with meals Orally Twice a day for 30 day(s) Active May have off loading toes shoe _ Daily for 90 day(s) Jun, Active Rosuvastatin Calcium 20 MG 1 tablet Orally Once a day for 90 day(s) Active Omeprazole 40MG 1 cap Orally before breakfast for 30 day(s) Active Aspirin 81 MG 1 tablet Orally Once a day for 30 day(s) Mar, Active Famotidine 20 MG 1 tab Orally at bedtime for 30 Days Active Vitamin D (Cholecalciferol) 2000 UNIT 1 tab Orally daily Active Furosemide 20 MG 1 tablet Orally every morning for 30 Days Active Multivitamins 1 1 tab(s) p.o. once a day Active Aquaphor - as directed Externally bid for 30 day(s) Active Glucometer one touch verio as directed Daily for 90 day(s) Active SITagliptin Phosphate 100 MG 1 tablet Orally Once a day for 90 day(s) Active Vitamin E 800 UNIT 1 capsule Orally Once a day Active Lancets lancets e11.9 one touch verio subcutaneously twice a day for 30 Days Active PROCEDURES No Information RESULTS No Results REASON FOR VISIT questions about + COVID test MEDICAL (GENERAL) HISTORY Type Description Date Medical History hypertension, essential Medical History expanded portal areas and br idging fibosis c/w cirrhosis, moderate steatosis by 01/2013 biopsy (done by Dr. Junior naylor cholecystectomy)-no increased Fe seen-favor 2 to [facility] Medical History borderline dilated LV, but L VEF 55-60%, grade 1 ariel dys, normal CVP/PAP-02/20/19 [facility]TE-[facility] Medical History hyperlipidemia 2B Medical History T2DM IR c peripheral neuropathy Medical History cholelithiasis-seen by 4 US (favor recurrent seroma s/p cholecystectomy) Medical History nephrolithiasis-R punctate intrarenal ca lculi by 10/2013 [place] Medical History h/o nicotine addiction-smoke d 1 09/06 PPD from [age] yo (~55 pack year history) Medical History hyperplastic polyps, moderat e sigmoid diverticulosis by 05/2014 colonoscopy-[facility] Medical History medium HH, grade II esophage al varices s/o banding 05/2014- Reindl < 5 mm varices-no rx needed/11/14/1920 grade 1 varices, duo mucosal flattening cw duodenitis by path-R Medical History lumbar TNL-gjtw-otaaq moderate multi-lev el DJD by 01/2016 xray Medical History cervical DJD-C5/6 mod losis c moderate-severe NF narrowing, L>R, mild-moderate thoracic losis s compression by 07/2017 MRI-Dr. Cole Medical History 5 T2 [facility] and posterior R fr ontal lobe cortex punctate hypointensity (favoring previous microbleed-site of previous trauma at 13Y when fell off of barn) by 07/2017 MRI brain-Dr. 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 Cole. Medical History L foot peroneus longus tendinopathy c mi ld OA by 07/2017 Medical History cervical khqtimluctn-M4-0 mi ld SS, C/3 severe B NFN, C45 mod R, mild L, C56 severe B NFN, , C67 B mod NFN by 02/2019 MRI Medical History obesity Surgical History laproscopic cholecystectomy-[facility] 03/2013 Surgical History B/L cataract surgery Hospitalization History L facial parasthesiae-MRI/MR A NAD, CXR NAD, favored 2 C3 cervical radic by Neuro-Dr. Cole 02/19- Goals Section No Information Health Concerns No Information MEDICAL EQUIPMENT No Information MENTAL STATUS No Information FUNCTIONAL STATUS No Information ASSESSMENTS No Information PLAN OF TREATMENT Medication Medication Name Sig Start Date Stop Date Vitamin E 800 UNIT 1 capsule Orally Once a day Lancets lancets e11.9 one touch verio subcutaneously twice a day for 30 Days SITagliptin Phosphate 100 MG 1 tablet Orally Once a day for 90 d ay(s) Glucometer one touch verio as directed Daily for 90 day(s) Blood Glucose Test - one touch verio subcutaneous ly dx: e11.9 twice a day for 30 Days Famotidine 20 MG 1 tab Orally at bedtime for 30 Days Multivitamins 1 1 tab(s) p.o. once a day Gabapentin 600 MG 1 tablet Orally 1 in AM, 1 m and 2 at bedtime for 30 day(s) Voltaren 1 % use for back pain Transdermal four times a day Nadolol 20 mg 1 tablet Orally Once a day (Dr. Arreguin) for 30 D ays Lisinopril/HCTZ 10/12.5mg 1 tab(s) p.o. once a day for 90 day(s) Aquaphor - as directed Externally bid for 30 day(s) Omeprazole 20 MG 2 capsules Orally before breakfast for 90 day(s ) Rosuvastatin Calcium 20 MG 1 tablet Orally Once a day for 90 day (s) Vitamin D (Cholecalciferol) 2000 UNIT 1 tab Orally daily Ferrous Sulfate 325 (65 Fe) MG 1 tablet Orally every other d ay for 90 day(s) Feb, Lantus SoloStar 100 UNIT/ML 50 units Subcutaneous before bed time for 30 day(s) Furosemide 20 MG 1 tablet Orally every morning for 30 Days metFORMIN HCl 1000 MG 1 tablet with meals Orally Twice a day for 30 day(s) COMPRESSION STOCKINGS 15-20 mmHg DIRECTED _ wear bi lateral lower extremites when upright for 30 Days Nortriptyline HCl 25 MG 1 capsule Orally bid for 30 Days Next Appt Details Provider Name:Ernie Cardona, 2021-11-20 1 0:45:00 AM, [address] [facility], , [place], [address], Insurance Providers Payer Name Payer Address Payer Phone Insured Name Patient Relati onship to Insured Coverage Start Date Coverage End Date BS [facility] [phone] [facility] [place] [address] MIKAYLA ESPINOZA self
--- OUTSIDE RECORDS SUMMARY | 2021-08-06 15:50 | CCD ---
Author Author [facility] Organization [facility] Address Unknown Phone Unavailable Care Team Providers Care Rn Examiner Name Role Phone Ernie Cardona Unavailable PROBLEMS Type Condition ICD9-CM Code VFL72-GD Code Onset Dates Condition S tatus W/U Status Risk SNOMED Code Notes Problem Esophageal reflux K21.9 Active confirmed 23 2317023 Problem Personal history of tobacco use, presenting hazards to health Z87.891 Active confirmed 416339208 Problem Vitamin D deficiency E55.9 Active confirmed 61521931 Problem Obesity E66.9 Active confirmed 750246093 Problem Mixed hyperlipidemia E78.2 Active confirmed 607682385 Problem Essential (primary) hypertension I10 Active conf irmed 30367327 Problem Esophageal varices I85.00 Active confirmed 2 2658107 Problem ED (erectile dysfunction) N52.9 Active confirmed 746096348 Problem Type 2 diabetes mellitus with other specified complication E11.69 Active confirmed 81381317 Problem Pancytopenia D61.818 Active confirmed 804810 005 Problem Diabetic polyneuropathy associated with type 2 d iabetes mellitus E11.42 Active confirmed 13906970 Problem Venous insufficiency of both lower extremities I87 .2 Active confirmed 913711134 Problem Prostate cancer screening Z12.5 Active confirmed 098783326 Problem Urinary calculus N20.9 Active confirmed 371 834799 Problem Chronic diastolic congestive heart failure I50.32 Active confirmed 289531042 Problem DJD (degenerative joint disease), lumbar M47.816 Active confirmed 774040780 Problem Cirrhosis of liver K74.60 Active confirmed 1 8381228 Problem Chronic eczema L30.9 Active confirmed 45926 003 Problem Cervical spondylosis M47.812 Active confirmed 814881179 Problem Headache, temporal R51 Active confirmed 4 6622833 Problem Iron deficiency anemia, unspecified iron deficiency an emia type D50.9 Active confirmed 66307041 ALLERGIES Allergen (clinical drug ingredient) Drug/Non Drug Allergy do cumented on EMR Reaction Allergy Type Onset Date Status zomax Rash Non Drug Allergy Active Penicillin (For Allergies Use Only) Rash Drug Allerg y Active ENCOUNTERS from 1956 to 2021-07-27 Encounter Location Date Provider Diagnosis [place] [address] [facility] [phone] [place] [address] Jul, Ernie Cardona IMMUNIZATIONS Vaccine Route Administration Date Status COVID-19 dose #1 given elsewhere Unspecified IM Intramuscular [facility] 2020 Administered Influenza 18 yrs & older Flublok Unknown Aug 01, 2018 Refused Pneumococcal 0.5mL Prevnar 13 IM Intramuscular Aug 23, 2018 A dministered SOCIAL HISTORY Tobacco Use: Social History Observation Description Date Details (start date - stop date) Former Smoker Sex Assigned At : Social History Observation Description Sex Assigned At Unknown Language: Question Answer Notes Languages spoken: Welsh Anglican: Question Answer Notes Anglican 08 Alev[employer] Sexual Hx: Question Answer Notes Had sex [...] Start Da te End Date Status Pen [place] 16" 31G X 5 MM ICD10 = [...] Information RESULTS No Results REASON FOR VISIT Covid MEDICAL (GENERAL) HISTORY Type Description Date Medical History hypertension, essential Medical History expanded portal areas and br idging fibosis c/w cirrhosis, moderate steatosis by 01/2013 biopsy (done by Dr. Junior naylor cholecystectomy)-no increased Fe seen-favor 2 to [facility] Medical History borderline dilated LV, but L VEF 55-60%, grade 1 ariel dys, normal CVP/PAP-02/20/19 [facility] Medical History hyperlipidemia 2B Medical History T2DM IR c peripheral neuropathy Medical History cholelithiasis-seen by 4 US (favor recurrent seroma s/p cholecystectomy) Medical History nephrolithiasis-R punctate intrarenal ca lculi by 10/2013 [place] Medical History h/o nicotine addiction-smoke d 1 09/06 PPD from [age] yo (~55 pack year history) Medical History hyperplastic polyps, moderat e sigmoid diverticulosis by 05/2014 colonoscopy-[facility] Medical History medium HH, grade II esophage al varices s/o banding 05/2014- Reindl < 5 mm varices-no rx needed/11/14/1920 grade 1 varices, duo mucosal flattening cw duodenitis by path-R Medical History lumbar PQR-xedp-gjlrm moderate multi-lev el DJD by 01/2016 xray [...] ld OA by 07/2017 Medical History cervical auaueelmjef-A3-5 mi ld SS, C/3 severe B NFN, [...] 0:45:00 AM, [address] [facility], , [place], [address], Insurance Providers Payer Name Payer Address Payer Phone Insured Name Patient Relati onship to Insured Coverage Start Date Coverage End Date BCBS OF [facility] [phone] [place] [address] MIKAYLA ESPINOZA self
--- OUTSIDE RECORDS SUMMARY | 2021-08-06 15:50 | CCD ---
Author Author [facility] Organization [facility] Address Unknown Phone Unavailable Care Team Providers Care Optical Fabrication Technician Name Role Phone Ernie Cardona Unavailable PROBLEMS Type Condition ICD9-CM Code SEO75-GK Code Onset Dates Condition S tatus W/U Status Risk SNOMED Code Notes Problem Esophageal reflux K21.9 Active confirmed 23 3354979 Problem Personal history of tobacco use, presenting hazards to health Z87.891 Active confirmed 755066566 Problem Vitamin D deficiency E55.9 Active confirmed 09595685 Problem Obesity E66.9 Active confirmed 529328757 Problem Mixed hyperlipidemia E78.2 Active confirmed 158120546 Problem Essential (primary) hypertension I10 Active conf irmed 07362543 Problem Esophageal varices I85.00 Active confirmed 2 9727975 Problem ED (erectile dysfunction) N52.9 Active confirmed 709929029 Problem Type 2 diabetes mellitus with other specified complication E11.69 Active confirmed 22411180 Problem Pancytopenia D61.818 Active confirmed 760993 005 Problem Diabetic polyneuropathy associated with type 2 d iabetes mellitus E11.42 Active confirmed 04192847 Problem Venous insufficiency of both lower extremities I87 .2 Active confirmed 907559217 Problem Prostate cancer screening Z12.5 Active confirmed 647758582 Problem Urinary calculus N20.9 Active confirmed 371 088717 Problem Chronic diastolic congestive heart failure I50.32 Active confirmed 377514689 Problem DJD (degenerative joint disease), lumbar M47.816 Active confirmed 207124269 Problem Cirrhosis of liver K74.60 Active confirmed 1 0011121 Problem Chronic eczema L30.9 Active confirmed 15295 003 Problem Cervical spondylosis M47.812 Active confirmed 757555457 Problem Headache, temporal R51 Active confirmed 4 4407492 Problem Iron deficiency anemia, unspecified iron deficiency an emia type D50.9 Active confirmed 35281679 ALLERGIES Allergen (clinical drug ingredient) Drug/Non Drug Allergy do cumented on EMR Reaction Allergy Type Onset Date Status zomax Rash Non Drug Allergy Active Penicillin (For Allergies Use Only) Rash Drug Allerg y Active ENCOUNTERS from 1955 to 2021-06-22 Encounter Location Date Provider Diagnosis [place] [address] [facility] [phone] [place] [address] Jun, Ernie Cardona Chronic diastolic congestive heart failure I50.32 IMMUNIZATIONS Vaccine Route Administration Date Status COVID-19 dose #1 given elsewhere Unspecified IM Intramuscular [facility] 2020 Administered Influenza 18 yrs & older Flublok Unknown Aug 01, 2018 Refused Pneumococcal 0.5mL Prevnar 13 IM Intramuscular Aug 23, 2018 A dministered SOCIAL HISTORY Tobacco Use: Social History Observation Description Date Details (start date - stop date) Former Smoker Sex Assigned At : Social History Observation Description Sex Assigned At Unknown Language: Question Answer Notes Languages spoken: Kinyarwanda Anabaptism: Question Answer Notes Anabaptism 08 Lutheran Sexual Hx: Question Answer Notes Had sex [...] Notes Start Da te End Date Status COMPRESSION STOCKINGS 15-20 mmHg DIRECTED _ wear bi lateral lower extremites when upright for 30 Days 24 [place], 2021 Active Ferrous Sulfate 325 (65 Fe) MG 1 tablet Orally every other day f or 90 day(s) Feb, Active Multivitamins 1 1 tab(s) p.o. once a day Active SITagliptin Phosphate 100 MG 1 tablet Orally Once a day for 90 day(s) Active Nadolol 20 mg 1 tablet Orally Once a day (Dr. Arreguin) for 30 Days Active Vitamin E 800 UNIT 1 capsule Orally Once a day Active Furosemide 20 MG 1 tablet Orally every morning for 30 Days Feb, Active Vitamin D (Cholecalciferol) 2000 UNIT 1 tab Orally daily Active Aspirin 81 MG 1 tablet Orally Once a day for 30 day(s) Mar, Active Colace 100 MG 1 capsule as needed Orally bid Jul, Active Nortriptyline HCl 25 MG 1 capsule Orally bid Active Lantus SoloStar 100 UNIT/ML 50 units Subcutaneous before bed time for 30 day(s) Active Voltaren 1 % use for back pain Transdermal four times a day Active Lancets lancets e11.9 one touch verio subcutaneously twice a day for 30 Days Active May have off loading toes shoe _ Daily for 90 day(s) Jun, Active Lisinopril/HCTZ 10/12.5mg 1 tab(s) p.o. once a day for 90 day(s) Active Aquaphor - as directed Externally bid for 30 day(s) Active metFORMIN HCl 1000 MG 1 tablet with meals Orally Twice a day for 30 day(s) Active Gabapentin 600 MG 1 tablet Orally 1 in AM, 1 m and 2 at bedtime for 30 day(s) Active Glucometer one touch verio as directed Daily for 90 day(s) Active Pen [place] 11/18" 31G X 5 MM ICD10 = E11.9 subcutaneou sly before bedtime with Lantus for 90 day(s) Active Famotidine 20 MG 1 tab Orally at bedtime for 30 Days 2018 Active Rosuvastatin Calcium 20 MG 1 tablet Orally Once a day for 30 Days Active Blood Glucose Test - one touch verio subcutaneous ly dx: e11.9 twice a day for 30 Days Active Omeprazole 40MG 1 cap Orally before breakfast for 30 day(s) Active PROCEDURES No Information RESULTS No Results REASON FOR VISIT New Refill Request MEDICAL (GENERAL) HISTORY Type Description Date Medical History hypertension, essential Medical History expanded portal areas and br idging fibosis c/w cirrhosis, moderate steatosis by 01/2013 biopsy (done by Dr. Junior naylor cholecystectomy)-no increased Fe seen-favor 2 to [facility] Medical History borderline dilated LV, but L VEF 55-60%, grade 1 ariel dys, normal CVP/PAP-02/20/19 [facility]TE-[facility] Medical History hyperlipidemia 2B Medical History T2DM IR c peripheral neuropathy Medical History cholelithiasis-seen by 4 US (favor recurrent seroma s/p cholecystectomy) Medical History nephrolithiasis-R punctate intrarenal ca lculi by 10/2013 [place] Medical History h/o nicotine addiction-smoke d 1 09/06 PPD from [age] yo (~55 pack year history) Medical History hyperplastic polyps, moderat e sigmoid diverticulosis by 05/2014 colonoscopy-[facility] Medical History medium HH, grade II esophage al varices s/o banding 05/2014- Reindl < 5 mm varices-no rx needed/11/14/1920 grade 1 varices, duo mucosal flattening cw duodenitis by path-R Medical History lumbar ZMF-osbz-xozwv moderate multi-lev el DJD by 01/2016 xray [...] ld OA by 07/2017 Medical History cervical lcmlsksgbps-O2-5 mi ld SS, C/3 severe B NFN, [...] No Information FUNCTIONAL STATUS No Information ASSESSMENTS Encounter Date Diagnosis Assessment Notes Treatment Notes Treatm ent Clinical Notes Jun, Chronic diastolic congestive heart failure (ICD- 10 - I50.32) PLAN OF TREATMENT Medication Medication Name Sig Start Date Stop Date Blood Glucose Test - one touch verio subcutaneous ly dx: e11.9 twice a day for 30 Days Omeprazole 40MG 1 cap Orally before breakfast for 30 day(s) Rosuvastatin Calcium 20 MG 1 tablet Orally Once a day for 30 Day s Famotidine 20 MG 1 tab Orally at bedtime for 30 Days Aug, Gabapentin 600 MG 1 tablet Orally 1 in AM, 1 m and 2 at bedtime for 30 day(s) Voltaren 1 % use for back pain Transdermal four times a day Lantus SoloStar 100 UNIT/ML 50 units Subcutaneous before bed time for 30 day(s) Lisinopril/HCTZ 10/12.5mg 1 tab(s) p.o. once a day for 90 day(s) SITagliptin Phosphate 100 MG 1 tablet Orally Once a day for 90 d ay(s) Aquaphor - as directed Externally bid for 30 day(s) metFORMIN HCl 1000 MG 1 tablet with meals Orally Twice a day for 30 day(s) Nortriptyline HCl 25 MG 1 capsule Orally bid Ferrous Sulfate 325 (65 Fe) MG 1 tablet Orally every other d ay for 90 day(s) Feb, Glucometer one touch verio as directed Daily for 90 day(s) Lancets lancets e11.9 one touch verio subcutaneously twice a day for 30 Days Multivitamins 1 1 tab(s) p.o. once a day Furosemide 20 MG 1 tablet Orally every morning for 30 Days 2020 Vitamin E 800 UNIT 1 capsule Orally Once a day COMPRESSION STOCKINGS 15-20 mmHg DIRECTED _ wear bi lateral lower extremites when upright for 30 Days Feb, Vitamin D (Cholecalciferol) 2000 UNIT 1 tab Orally daily Nadolol 20 mg 1 tablet Orally Once a day (Dr. Arreguin) for 30 D ays Next Appt Details Provider Name:Ernie Cardona, 2021-07-07 1 1:45:00 AM, [address] [facility], , [place], [address], Insurance Providers Payer Name Payer Address Payer Phone Insured Name Patient Relati onship to Insured Coverage Start Date [place]age End Date [facility] [phone] [facility] [address] MIKAYLA ESPINOZA self
--- OUTSIDE RECORDS SUMMARY | 2021-08-06 15:50 | CCD ---
Author Author [facility] Organization [facility] Address Unknown Phone Unavailable Care Team Providers Care Public Services Assistant Name Role Phone Ernie Cardona Unavailable PROBLEMS Type Condition ICD9-CM Code UHM24-WM Code Onset Dates Condition S tatus W/U Status Risk SNOMED Code Notes Problem Esophageal reflux K21.9 Active confirmed 23 3259983 Problem Personal history of tobacco use, presenting hazards to health Z87.891 Active confirmed 442053954 Problem Vitamin D deficiency E55.9 Active confirmed 73784449 Problem Obesity E66.9 Active confirmed 918334401 Problem Mixed hyperlipidemia E78.2 Active confirmed 804687985 Problem Essential (primary) hypertension I10 Active conf irmed 30352865 Problem Esophageal varices I85.00 Active confirmed 2 4300435 Problem ED (erectile dysfunction) N52.9 Active confirmed 898124780 Problem Type 2 diabetes mellitus with other specified complication E11.69 Active confirmed 45031906 Problem Pancytopenia D61.818 Active confirmed 570013 005 Problem Diabetic polyneuropathy associated with type 2 d iabetes mellitus E11.42 Active confirmed 60710604 Problem Venous insufficiency of both lower extremities I87 .2 Active confirmed 816081230 Problem Prostate cancer screening Z12.5 Active confirmed 389702223 Problem Urinary calculus N20.9 Active confirmed 371 851302 Problem Chronic diastolic congestive heart failure I50.32 Active confirmed 942838006 Problem DJD (degenerative joint disease), lumbar M47.816 Active confirmed 086423701 Problem Cirrhosis of liver K74.60 Active confirmed 1 0673208 Problem Chronic eczema L30.9 Active confirmed 38503 003 Problem Cervical spondylosis M47.812 Active confirmed 213859160 Problem Headache, temporal R51 Active confirmed 4 1082835 Problem Iron deficiency anemia, unspecified iron deficiency an emia type D50.9 Active confirmed 23846005 ALLERGIES Allergen (clinical drug ingredient) Drug/Non Drug Allergy do cumented on EMR Reaction Allergy Type Onset Date Status zomax Rash Non Drug Allergy Active Penicillin (For Allergies Use Only) Rash Drug Allerg y Active ENCOUNTERS from 1955 to 2021-05-25 Encounter Location Date Provider Diagnosis [place] [id number] [facility] [phone] [place] [address] May, Ernie Cardona Type 2 diabetes mellitus wit h other specified complication E11.69 and Mixed hyperlipidemia E78.2 IMMUNIZATIONS Vaccine Route Administration Date Status COVID-19 dose #1 given elsewhere Unspecified IM Intramuscular [facility] 2020 Administered Influenza 18 yrs & older Flublok Unknown Aug 01, 2018 Refused Pneumococcal 0.5mL Prevnar 13 IM Intramuscular Aug 23, 2018 A dministered SOCIAL HISTORY Tobacco Use: Social History Observation Description Date Details (start date - stop date) Former Smoker Sex Assigned At : Social History Observation Description Sex Assigned At Unknown Language: Question Answer Notes Languages spoken: Uzbek 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 once a day Active SITagliptin Phosphate 100 MG 1 tablet Orally Once a day for 90 day(s) Active Furosemide 20 MG 1 tablet Orally every morning for 30 Days Feb, Active Aquaphor - as directed Externally bid for 30 day(s) Active Vitamin E 800 UNIT 1 capsule Orally Once a day Active COMPRESSION STOCKINGS 15-20 mmHg DIRECTED _ wear bi lateral lower extremites when upright for 30 Days Feb, Active Ferrous Sulfate 325 (65 Fe) MG 1 tablet Orally every other day f or day(s) Feb, Active Nadolol 20 mg 1 tablet Orally Once a day (Dr. Arreguin) for 30 Days Active Aspirin 81 MG 1 tablet Orally Once a day for 30 day(s) Mar, Active Colace 100 MG 1 capsule as needed Orally bid Jul, Active Nortriptyline HCl 25 MG 1 capsule Orally bid Active Lantus SoloStar 100 UNIT/ML 50 units Subcutaneous before bed time for 30 day(s) Active Lisinopril/HCTZ 10/12.5mg 1 tab(s) p.o. once a day for 90 day(s) Active Lancets lancets e11.9 one touch verio subcutaneously twice a day for 30 Days Active May have off loading toes shoe _ Daily for 90 day(s) Jun, Active Vitamin D (Cholecalciferol) 2000 UNIT 1 tab Orally daily Active Voltaren 1 % use for back pain Transdermal four times a day Active metFORMIN HCl 1000 MG 1 tablet with meals Orally Twice a day for 30 day(s) Active Gabapentin 600 MG 1 tablet Orally 1 in AM, 1 m and 2 at bedtime for 30 day(s) Active Glucometer one touch verio as directed Daily for 90 day(s) Active Pen [place] 3" 31G X 5 MM ICD10 = E11.9 [...] polyps, moderat e sigmoid diverticulosis by 05/2014 colonoscopy-[facility] Medical History medium HH, grade II esophage al varices s/o banding 05/2014- Reindl < 5 mm varices-no rx needed/11/14/1920 grade 1 varices, duo mucosal flattening cw duodenitis by path-R Medical History lumbar [id number]-[id number]-ycuhc moderate multi-lev el DJD by 01/2016 xray [...] ld OA by 07/2017 Medical History cervical [id number] mi ld SS, C/3 severe B NFN, [...] Notes Treatment Notes Treatm ent Clinical Notes May, Type 2 diabetes mellitus wit h other specified complication (ICD-10 - E11.69) May, Mixed hyperlipidemia (ICD-10 - E78.2) PLAN OF TREATMENT Medication Medication Name Sig [...] and 2 at bedtime for 30 day(s) Lisinopril/HCTZ 10/12.5mg 1 tab(s) p.o. once a day for 90 day(s) Lantus SoloStar 100 UNIT/ML 50 units Subcutaneous before bed time for 30 day(s) Vitamin D (Cholecalciferol) 2000 UNIT 1 tab Orally daily Aquaphor - as directed Externally bid for 30 day(s) Voltaren 1 % use for back pain Transdermal four times a day metFORMIN HCl 1000 MG 1 tablet with meals Orally Twice a day for 30 day(s) Nortriptyline HCl 25 MG 1 capsule Orally bid SITagliptin Phosphate 100 MG 1 tablet Orally Once a day for 90 d ay(s) Glucometer one touch verio as directed Daily for 90 day(s) Lancets lancets e11.9 one touch verio subcutaneously twice a day for 30 Days Furosemide 20 MG 1 tablet Orally every morning for 30 Days 2020 Ferrous Sulfate 325 (65 Fe) MG 1 tablet Orally every other d ay for 90 day(s) Feb, COMPRESSION STOCKINGS 15-20 mmHg DIRECTED _ wear bi lateral lower extremites when upright for 30 Days Feb, Multivitamins 1 1 tab(s) p.o. once a day Nadolol 20 mg 1 tablet Orally Once a day (Dr. Arreguin) for 30 D ays Vitamin E 800 UNIT 1 capsule Orally Once a day Next Appt Details Provider Name:Ernie Cardona, 2021-07-07 1 1:45:00 AM, [address] [facility], , [place], [address], Insurance Providers Payer Name Payer Address Payer Phone Insured Name Patient Relati onship to Insured Coverage Start Date Coverage End Date [facility] [phone] [facility] [id number] MIKAYLA ESPINOZA self
--- OUTSIDE RECORDS SUMMARY | 2021-08-06 15:50 | CCD | Continuity of Care Document ---
Author Author [facility] Organization Unknown Address [address], [address] [place] [address] Phone [phone] Care Team Providers Care Casting Coordinator Name Role Phone Ernie Cardona M.D. AUTM [phone] Problems Description No Active Problems Social History [...] lb BMI (Body Mass Index) 34.7 kg/m2 [place] Body Weight 178 lb Weight 116.122 kg BSA (Body Surface Area) 2.37 m2 11/24/2020 10:54am BP Systolic 147 mmHg BP Diastolic 76 mmHg Height 72 inches 6'0" Weight 256.00 lb BMI (Body Mass Index) 34.7 kg/m2 [place] Body Weight 178 lb Weight 116.122 kg BSA (Body Surface Area) 2.37 m2 Results Test Acquired Date Facility Test Result H/L Range Note Laboratory test finding 01/16/2021 [facility] [address] [place] [address] [phone] Pathology Request For Service (SEE NOTE) 1 Laboratory test finding 01/14/2021 [facility] [address] [place], [place] [id number] [phone] Alpha Fetoprotein Tumor Quant 2.3 NG/ML Normal [...] AFP ASSAY IS PERFORMED O N THE [facility] BY CHEMILUMINESCENCE AND SHOULD NOT BE COMPARED [...] [facility] Normal. Procedures Date Code Description Status 01/16/2021 54390 Endoscopy Upper GI Biopsy Comple sue 11/24/2020 43309 Office/Outpatient Established Lo w MDM 20-29 Min Completed Medical Devices Description No Information Available Encounters Type Date Location Provider Dx Diagnosis Office Visit 11/24/2020 11:00a [facility] Jessenia Portillo JENNIFER Wyman K74.60 Unspecified cirrhosis of roberth er I85.00 Esophageal varices without b leeding K59.00 Constipation, unspecified Assessments Date Code Description Provider 05/25/2021 K74.60 Unspecified cirrhosis of liver M magaly Portillo JENNIFER Wyman 05/25/2021 I85.00 Esophageal varices without bleed ing Jessenia Portillo JENNIFER Wyman 05/25/2021 K59.00 Constipation, unspecified [facility]iss a A JENNIFER Wyman 01/16/2021 K31.7 Polyp of stomach and duodenum Da monae Arreguin MD 01/16/2021 K74.60 Unspecified cirrhosis of liver D jonathan Arreguin MD 01/16/2021 I85.10 Secondary esophageal varices wit hout bleeding Gage Arreguin MD 11/24/2020 K74.60 Unspecified cirrhosis of liver M magaly Portillo JENNIFER Wyman 11/24/2020 I85.00 Esophageal varices without bleed ing Jessenia Portillo JENNIFER Wyman 11/24/2020 K59.00 Constipation, unspecified [facility] A JENNIFER Wyman Plan of Treatment 05/25/2021 - Jessenia A JENNIFER Wyman* K74.60 Unspecified cirrhosis of liver * I85.00 [...]
--- OUTSIDE RECORDS SUMMARY | 2021-08-06 15:50 | CCD ---
Author Author [facility] Organization [facility] Address Unknown Phone Unavailable Care Team Providers Care Area Intelligence Technician Name Role Phone Ernie Cardona Unavailable PROBLEMS ALLERGIES ENCOUNTERS from 1955 to 2021-07-20 IMMUNIZATIONS SOCIAL HISTORY REASON FOR REFERRAL No Information VITAL SIGNS MEDICATIONS PROCEDURES No Information RESULTS No Results REASON FOR VISIT MEDICAL (GENERAL) HISTORY Goals Section Health Concerns MEDICAL EQUIPMENT No Information MENTAL STATUS FUNCTIONAL STATUS ASSESSMENTS PLAN OF TREATMENT Insurance Providers
--- OUTSIDE RECORDS SUMMARY | 2021-08-06 15:51 | CCD ---
Author Author [facility] Organization [facility] Address Unknown Phone Unavailable Care Team Providers Care Training And Documentation Specialist Name Role Phone Charlebois, A Jessenia RPA C Unavailable Unavailable Charlebois, A Jessenia RPA C Unavailable Unavailable Charlebois, A Jessenia RPA C Unavailable Unavailable Charlebois, A Jessenia RPA C Unavailable Unavailable Charlebois, A Jessenia RPA C Unavailable Unavailable Charlebois, A Jessenia RPA C Unavailable Unavailable Charlebois, A Jessenia RPA C Unavailable Unavailable Charlebois, A Jessenia RPA C Unavailable Unavailable Charlebois, A Jessenia RPA C Unavailable Unavailable Charlebois, A Jessenia RPA C Unavailable Unavailable Charlebois, A Jessenia RPA C Unavailable Unavailable Charlebois, A Jessenia RPA C Unavailable Unavailable Charlebois, A Jessenia RPA C Unavailable Unavailable Charlebois, A Jessenia RPA C Unavailable Unavailable Charlebois, A Jessenia RPA C Unavailable Unavailable Charlebois, A Jessenia RPA C Unavailable Unavailable Charlebois, A Jessenia RPA C Unavailable Unavailable Charlebois, A Jessenia RPA C Unavailable Unavailable Charlebois, A Jessenia RPA C Unavailable Unavailable Charlebois, A Jessenia RPA C Unavailable Unavailable Charlebois, A Jessenia RPA C Unavailable Unavailable Charlebois, A Jessenia RPA C Unavailable Unavailable Charlebois, A Jessenia RPA C Unavailable Unavailable Charlebois, A Jessenia RPA C Unavailable Unavailable Charlebois, A Jessenia RPA C Unavailable Unavailable Charlebois, A Jessenia RPA C Unavailable Unavailable Charlebois, A Jessenia RPA C Unavailable Unavailable Charlebois, A Jessenia RPA C Unavailable Unavailable Charlebois, A Jessenia RPA C Unavailable Unavailable Charlebois, A Jessenia RPA C Unavailable Unavailable Charlebois, A Jessenia RPA C Unavailable Unavailable Charlebois, A Jessenia RPA C Unavailable Unavailable Charlebois, A Jessenia RPA C Unavailable Unavailable Barry 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 If such information is present, then the following federally mandated warning applies: This information has been disclosed to you from records protected by federal confidentiality rules (42 CFR part 2). The federal rules prohibit you from making any further disclosure of this information unless further disclosure is expressly permitted by the written consent of the person to whom it pertains or as otherwise permitted by 42 CFR part 2. A general authorization for the release of medical or other information is NOT sufficient for this purpose. The Federal rules restrict any use of the information to criminally investigate or prosecute any alcohol or drug abuse patient.The records that you are about to access may contain highly sensitive health information, the redisclosure of which is protected by Article 27-F of the [facility] Public Health law. If you continue you may have access to information: Regarding HIV / AIDS; Provided by facilities licensed or operated by the [facility] Office of Mental Health; or Provided by the [facility] Office for People With Developmental Disabilities. If such information is present, then the following [facility] mandated warning applies: This information has been disclosed to you from confidential records which are protected by state law. State law prohibits you from making any further disclosure of this information without the specific written consent of the person to whom it pertains, or as otherwise permitted by law. Any unauthorized further disclosure in violation of state law may result in a fine or senior living sentence or both. A general authorization for the release of medical or other information is NOT sufficient authorization for further disc losure. Family History Family Member Name Family Member Gender Family Member Status Date o f Status Description Data Source(s) Unknown Unknown Problem [facility] ) Unknown Unknown Problem MEDENT ([facility], ) Encounters Encounter Providers Location Date Indications Data Source(s ) Outpatient Attender: Maynor Jay NP 021 12:55:58 PM EST - 08/06/2021 02:33:59 PM EST DocuTap ([facility] ) Unknown [address] [facility] [address] [place] [address] 08/04/2021 12:00:00 AM EST [facility]CW[facility]) Unknown [address] [facility] [place] [address] 07/26/2021 12:00:00 AM EST eCW1 ([facility]) Unknown [address] [facility] [place] [address] 07/19/2021 12:00:00 AM EST eCW1 ([facility]) Unknown [address] [facility] [place] [address] 07/12/2021 12:00:00 AM EDT eCW1 ([facility]) Unknown [address] [facility] [address] [place] [address] 06/21/2021 12:00:00 AM EDT eCW1 ([facility]) Outpatient Attender: Jessenia Streeter/Laly/Lindsey calderón/Kallie 05/25/2021 09:00:00 AM EDT MEDENT ([facility] ) [place] [address] [facility] [place] [address] 05/24/2021 12:00:00 AM EDT eCW1 ([facility]) Unknown [address] [facility] [place] [address] 04/27/2021 12:00:00 AM EDT eCW1 ([facility]) [place] [address] [facility] [place] [address] 04/26/2021 12:00:00 AM EDT eCW1 ([facility]) [place] [address] [facility] [address] 04/24/2021 12:00:00 AM EDT eCW1 ([facility]) [place] [address] [facility] [address] 04/14/2021 12:00:00 AM EDT eCW1 ([facility]) [place] [address] [facility] [address] 04/12/2021 12:00:00 AM EDT eCW1 ([facility]) [place] [address] [facility] [address] 04/12/2021 12:00:00 AM EDT eCW1 ([facility]) [place] [address] [facility] [place] [address] 04/12/2021 12:00:00 AM EDT eCW1 ([facility]) [place] [address] [facility] [address] 04/09/2021 12:00:00 AM EDT eCW1 ([facility]) [place] [address] [facility] [place] [address] 03/31/2021 12:00:00 AM EDT eCW1 ([facility]) [place] [address] [facility] [place] [address] 03/30/2021 12:00:00 AM EDT eCW1 ([facility]) Unknown [address] [facility] [place] [address] 03/29/2021 12:00:00 AM EDT eCW1 ([facility]) [place] [address] [facility] [place] [address] 03/29/2021 12:00:00 AM EDT eCW1 ([facility]) [place] [address] [facility] [place] [address] 03/05/2021 12:00:00 AM EDT eCW1 ([facility]) Unknown [address] [facility] [place] [address] 03/04/2021 12:00:00 AM EDT eCW1 ([facility]) [place] [address] [facility] [place] [address] 03/02/2021 12:00:00 AM EDT eCW1 ([facility]) Unknown [address] [facility] [place] [address] 02/26/2021 12:00:00 AM EDT eCW1 ([facility]) Outpatient [address] [facility] [place] [address] 02/26/2021 12:00:00 AM EDT eCW1 ([facility]) Unknown [address] [facility] [place] [address] 02/21/2021 12:00:00 AM EDT eCW1 ([facility]) Unknown [address] [facility] [place] [address] 02/01/2021 12:00:00 AM EDT eCW1 ([facility]) [place] [address] [facility] [place] [address] 01/25/2021 12:00:00 AM EDT eCW1 ([facility]) [place] [address] [facility] [place] [address] 01/02/2021 12:00:00 AM EDT eCW1 ([facility]) [place] [address] [facility] [place] [address] 12/30/2020 12:00:00 AM EDT eCW1 ([facility]) Unknown [address] [facility] [place] [address] 12/28/2020 12:00:00 AM EDT eCW1 ([facility]) Unknown [address] [facility] [place] [address] 12/07/2020 12:00:00 AM EDT eCW1 ([facility]) [place] [address] [facility] [place] [address] 12/04/2020 12:00:00 AM EDT eCW1 ([facility]) Unknown [address] [facility] [address] 11/30/2020 12:00:00 AM EDT [facility]CW1 [facility] Outpatient Attender: Jessenia Streeter/Laly/Lindsey calderón/Kallie 11/24/2020 11:00:00 AM EDT MEDENT ([facility] UZIEL Sharp) Outpatient [address] [facility] [place] [address] 10/23/2020 12:00:00 AM EST eCW1 ([facility]) Unknown [address] [facility] [address] 10/12/2020 12:00:00 AM EST eCW1 ([facility]) Unknown [address] [facility] [place] [address] 10/04/2020 12:00:00 AM EST eCW1 ([facility]) Unknown [address] [facility] [place] [address] 09/30/2020 12:00:00 AM EST eCW1 ([facility]) Unknown [address] [facility] [place] [address] 09/29/2020 12:00:00 AM EST eCW1 ([facility]) [place] [address] [facility] [place] [address] 09/28/2020 12:00:00 AM EST eCW1 ([facility]) Unknown [address] [facility] [place] [address] 09/07/2020 12:00:00 AM EST eCW1 ([facility]) [place] [address] [facility] [place] [address] 08/31/2020 12:00:00 AM EST eCW1 ([facility]) [place] [address] [facility] [place] [address] 08/10/2020 12:00:00 AM EST eCW1 ([facility]) [place] [address] [facility] [place] [address] 08/05/2020 12:00:00 AM EST eCW1 ([facility]) [place] [address] [facility] [place] [address] 07/13/2020 12:00:00 AM EST eCW1 ([facility]) [place] [address] [facility] [place] [address] 06/16/2020 12:00:00 AM EDT eCW1 ([facility]) [place] [address] [facility] [place] [address] 06/12/2020 12:00:00 AM EDT eCW1 ([facility]) [place] [address] [facility] [place] [address] 06/12/2020 12:00:00 AM EDT eCW1 ([facility]) Immunizations Vaccine Date Status Description Data Source(s) COVID-19 dose #1 given elsewhere Unspecified 12/03/2020 03:5 3:00 PM EDT completed eCW1 ([facility]) COVID-19 dose #1 given elsewhere Unspecified 12/03/2020 03:5 3:00 PM EDT completed eCW1 ([facility]) COVID-19 dose #1 given elsewhere Unspecified 12/03/2020 03:5 3:00 PM EDT completed eCW1 ([facility]) COVID-19 dose #1 given elsewhere Unspecified 12/03/2020 03:5 3:00 PM EDT completed eCW1 ([facility]) COVID-19 dose #1 given elsewhere Unspecified 12/03/2020 03:5 3:00 PM EDT completed eCW1 ([facility]) COVID-19 dose #1 given elsewhere Unspecified 12/03/2020 03:5 3:00 PM EDT completed eCW1 ([facility]) COVID-19 dose #1 given elsewhere Unspecified 12/03/2020 03:5 3:00 PM EDT completed eCW1 ([facility]) COVID-19 dose #1 given elsewhere Unspecified 12/03/2020 03:5 3:00 PM EDT completed eCW1 ([facility]) COVID-19 dose #1 given elsewhere Unspecified 12/03/2020 03:5 3:00 PM EDT completed eCW1 ([facility]) COVID-19 dose #1 given elsewhere Unspecified 12/03/2020 03:5 3:00 PM EDT completed eCW1 ([facility]) COVID-19 dose #1 given elsewhere Unspecified 12/03/2020 03:5 3:00 PM EDT completed eCW1 ([facility]) COVID-19 dose #1 given elsewhere Unspecified 12/03/2020 03:5 3:00 PM EDT completed eCW1 ([facility]) COVID-19 dose #1 given elsewhere Unspecified 12/03/2020 03:5 3:00 PM EDT completed eCW1 ([facility]) COVID-19 dose #1 given elsewhere Unspecified 12/03/2020 03:5 3:00 PM EDT completed eCW1 ([facility]) COVID-19 dose #1 given elsewhere Unspecified 12/03/2020 03:5 3:00 PM EDT completed eCW1 ([facility]) COVID-19 dose #1 given elsewhere Unspecified 12/03/2020 03:5 3:00 PM EDT completed eCW1 ([facility]) COVID-19 dose #1 given elsewhere Unspecified 12/03/2020 03:5 3:00 PM EDT completed eCW1 ([facility]) COVID-19 dose #1 given elsewhere Unspecified 12/03/2020 03:5 3:00 PM EDT completed eCW1 ([facility]) COVID-19 dose #1 given elsewhere Unspecified 12/03/2020 03:5 3:00 PM EDT completed eCW1 ([facility]) COVID-19 dose #1 given elsewhere Unspecified 12/03/2020 03:5 3:00 PM EDT completed eCW1 ([facility]) COVID-19 dose #1 given elsewhere Unspecified 12/03/2020 03:5 3:00 PM EDT completed eCW1 ([facility]) COVID-19 dose #1 given elsewhere Unspecified 12/03/2020 03:5 3:00 PM EDT completed eCW1 ([facility]) COVID-19 dose #1 given elsewhere Unspecified 12/03/2020 03:5 3:00 PM EDT completed eCW1 ([facility]) COVID-19 dose #1 given elsewhere Unspecified 12/03/2020 03:5 3:00 PM EDT completed eCW1 ([facility]) COVID-19 dose #1 given elsewhere Unspecified 12/03/2020 03:5 3:00 PM EDT completed eCW1 ([facility]) COVID-19 dose #1 given elsewhere Unspecified 12/03/2020 03:5 3:00 PM EDT completed eCW1 ([facility]) COVID-19 dose #1 given elsewhere Unspecified 12/03/2020 03:5 3:00 PM EDT completed eCW1 ([facility]) COVID-19 dose #1 given elsewhere Unspecified 12/03/2020 03:5 3:00 PM EDT completed eCW1 ([facility]) COVID-19 dose #1 given elsewhere Unspecified 12/03/2020 03:5 3:00 PM EDT completed eCW1 ([facility]) COVID-19 dose #1 given elsewhere Unspecified 12/03/2020 03:5 3:00 PM EDT completed eCW1 ([facility]) COVID-19 dose #1 given elsewhere Unspecified 12/03/2020 03:5 3:00 PM EDT completed eCW1 ([facility]) COVID-19 VACCINE Reyna 12/03/2020 12:00:00 AM EDT completed [facility] Vaccine Series Complete: YESThis Data wa s Submitted to [facility] Via [employer]. Medications Medication Brand Name Start Date Product Form Dose Route Admi nistrative Instructions Pharmacy Instructions Status Indications Reaction Description Data Source(s) ferrous sulfate 325 MG Delayed Release O ral Tablet Ferrous Sulfate 325 (65 Fe) MG Ferrous Sulfate 325 (65 Fe) MG 03/04/2021 12:00:00 AM EDT 1. 0 {tablet} active Ferrous Sulfate 325 (65 Fe) MG eCW1 ([facility]) ferrous sulfate 325 MG Delayed Release O ral Tablet Ferrous Sulfate 325 (65 Fe) MG Ferrous Sulfate 325 (65 Fe) MG 03/04/2021 12:00:00 AM EDT 1. 0 {tablet} active Ferrous Sulfate 325 (65 Fe) MG eCW1 ([facility]) ferrous sulfate 325 MG Delayed Release O ral Tablet Ferrous Sulfate 325 (65 Fe) MG Ferrous Sulfate 325 (65 Fe) MG 03/04/2021 12:00:00 AM EDT 1. 0 {tablet} active Ferrous Sulfate 325 (65 Fe) MG eCW1 ([facility]) ferrous sulfate 325 MG Delayed Release O ral Tablet Ferrous Sulfate 325 (65 Fe) MG Ferrous Sulfate 325 (65 Fe) MG 03/04/2021 12:00:00 AM EDT 1. 0 {tablet} active Ferrous Sulfate 325 (65 Fe) MG eCW1 ([facility]) ferrous sulfate 325 MG Delayed Release O ral Tablet Ferrous Sulfate 325 (65 Fe) MG Ferrous Sulfate 325 (65 Fe) MG 03/04/2021 12:00:00 AM EDT 1. 0 {tablet} active Ferrous Sulfate 325 (65 Fe) MG eCW1 ([facility]) ferrous sulfate 325 MG Delayed Release O ral Tablet Ferrous Sulfate 325 (65 Fe) MG Ferrous Sulfate 325 (65 Fe) MG 03/04/2021 12:00:00 AM EDT 1. 0 {tablet} active Ferrous Sulfate 325 (65 Fe) MG eCW1 ([facility]) ferrous sulfate 325 MG Delayed Release O ral Tablet Ferrous Sulfate 325 (65 Fe) MG Ferrous Sulfate 325 (65 Fe) MG 03/04/2021 12:00:00 AM EDT 1. 0 {tablet} active eCW1 ([facility]) ferrous sulfate 325 MG Delayed Release O ral Tablet Ferrous Sulfate 325 (65 Fe) MG Ferrous Sulfate 325 (65 Fe) MG 03/04/2021 12:00:00 AM EDT 1. 0 {tablet} active Ferrous Sulfate 325 (65 Fe) MG eCW1 ([facility]) ferrous sulfate 325 MG Delayed Release O ral Tablet Ferrous Sulfate 325 (65 Fe) MG Ferrous Sulfate 325 (65 Fe) MG 03/04/2021 12:00:00 AM EDT 1. 0 {tablet} active Ferrous Sulfate 325 (65 Fe) MG eCW1 ([facility]) ferrous sulfate 325 MG Delayed Release O ral Tablet Ferrous Sulfate 325 (65 Fe) MG Ferrous Sulfate 325 (65 Fe) MG 03/04/2021 12:00:00 AM EDT 1. 0 {tablet} active Ferrous Sulfate 325 (65 Fe) MG eCW1 ([facility]) ferrous sulfate 325 MG Delayed Release O ral Tablet Ferrous Sulfate 325 (65 Fe) MG Ferrous Sulfate 325 (65 Fe) MG 03/04/2021 12:00:00 AM EDT 1. 0 {tablet} active Ferrous Sulfate 325 (65 Fe) MG eCW1 ([facility]) ferrous sulfate 325 MG Delayed Release O ral Tablet Ferrous Sulfate 325 (65 Fe) MG Ferrous Sulfate 325 (65 Fe) MG 03/04/2021 12:00:00 AM EDT 1. 0 {tablet} active eCW1 ([facility]) ferrous sulfate 325 MG Delayed Release O ral Tablet Ferrous Sulfate 325 (65 Fe) MG Ferrous Sulfate 325 (65 Fe) MG 03/04/2021 12:00:00 AM EDT 1. 0 {tablet} active Ferrous Sulfate 325 (65 Fe) MG eCW1 ([facility]) ferrous sulfate 325 MG Delayed Release O ral Tablet Ferrous Sulfate 325 (65 Fe) MG Ferrous Sulfate 325 (65 Fe) MG 03/04/2021 12:00:00 AM EDT 1. 0 {tablet} active Ferrous Sulfate 325 (65 Fe) MG eCW1 ([facility]) ferrous sulfate 325 MG Delayed Release O ral Tablet Ferrous Sulfate 325 (65 Fe) MG Ferrous Sulfate 325 (65 Fe) MG 03/04/2021 12:00:00 AM EDT 1. 0 {tablet} active Ferrous Sulfate 325 (65 Fe) MG eCW1 ([facility]) ferrous sulfate 325 MG Delayed Release O ral Tablet Ferrous Sulfate 325 (65 Fe) MG Ferrous Sulfate 325 (65 Fe) MG 03/04/2021 12:00:00 AM EDT 1. 0 {tablet} active Ferrous Sulfate 325 (65 Fe) MG eCW1 ([facility]) ferrous sulfate 325 MG Delayed Release O ral Tablet Ferrous Sulfate 325 (65 Fe) MG Ferrous Sulfate 325 (65 Fe) MG 03/04/2021 12:00:00 AM EDT 1. 0 {tablet} active Ferrous Sulfate 325 (65 Fe) MG eCW1 ([facility]) ferrous sulfate 325 MG Delayed Release O ral Tablet Ferrous Sulfate 325 (65 Fe) MG Ferrous Sulfate 325 (65 Fe) MG 03/04/2021 12:00:00 AM EDT 1. 0 {tablet} active Ferrous Sulfate 325 (65 Fe) MG eCW1 ([facility]) ferrous sulfate 325 MG Delayed Release O ral Tablet Ferrous Sulfate 325 (65 Fe) MG Ferrous Sulfate 325 (65 Fe) MG 03/04/2021 12:00:00 AM EDT 1. 0 {tablet} active Ferrous Sulfate 325 (65 Fe) MG eCW1 ([facility]) ferrous sulfate 325 MG Delayed Release O ral Tablet Ferrous Sulfate 325 (65 Fe) MG Ferrous Sulfate 325 (65 Fe) MG 03/04/2021 12:00:00 AM EDT 1. 0 {tablet} active Ferrous Sulfate 325 (65 Fe) MG eCW1 ([facility]) Furosemide 20 MG Oral Tablet Furosemide 20 MG 02/26/2021 12:00:00 A M EDT 1.0 {tablet} active Furosemide 20 MG eCW1 ( [facility]) COMPRESSION STOCKINGS 15-20 mmHg UNK 02/26/2021 12:00:00 AM EDT active COMPRESSION STOCKINGS 15-20 mmHg eCW1 ([facility]) COMPRESSION STOCKINGS 15-20 mmHg UNK 02/26/2021 12:00:00 AM EDT active COMPRESSION STOCKINGS 15-20 mmHg eCW1 ([facility]) Furosemide 20 MG Oral Tablet Furosemide 20 MG 02/26/2021 12:00:00 A M EDT 1.0 {tablet} active Furosemide 20 MG eCW1 ( [facility]) COMPRESSION STOCKINGS 15-20 mmHg UNK 02/26/2021 12:00:00 AM EDT active COMPRESSION STOCKINGS 15-20 mmHg eCW1 ([facility]) Furosemide 20 MG Oral Tablet Furosemide 20 MG 02/26/2021 12:00:00 A M EDT 1.0 {tablet} active Furosemide 20 MG eCW1 ( [facility]) COMPRESSION STOCKINGS 15-20 mmHg UNK 02/26/2021 12:00:00 AM EDT active COMPRESSION STOCKINGS 15-20 mmHg eCW1 ([facility]) Furosemide 20 MG Oral Tablet Furosemide 20 MG 02/26/2021 12:00:00 A M EDT 1.0 {tablet} active Furosemide 20 MG eCW1 ( [facility]) Furosemide 20 MG Oral Tablet Furosemide 20 MG 02/26/2021 12:00:00 A M EDT 1.0 {tablet} active Furosemide 20 MG eCW1 ( [facility]) COMPRESSION STOCKINGS 15-20 mmHg UNK 02/26/2021 12:00:00 AM EDT active COMPRESSION STOCKINGS 15-20 mmHg eCW1 ([facility]) Furosemide 20 MG Oral Tablet Furosemide 20 MG 02/26/2021 12:00:00 A M EDT 1.0 {tablet} active Furosemide 20 MG eCW1 ( [facility]) COMPRESSION STOCKINGS 15-20 mmHg UNK 02/26/2021 12:00:00 AM EDT active COMPRESSION STOCKINGS 15-20 mmHg eCW1 ([facility]) Furosemide 20 MG Oral Tablet Furosemide 20 MG 02/26/2021 12:00:00 A M EDT 1.0 {tablet} active Furosemide 20 MG eCW1 ( [facility]) Furosemide 20 MG Oral Tablet Furosemide 20 MG 02/26/2021 12:00:00 A M EDT 1.0 {tablet} active Furosemide 20 MG eCW1 ( [facility]) Furosemide 20 MG Oral Tablet Furosemide 20 MG 02/26/2021 12:00:00 A M EDT 1.0 {tablet} active Furosemide 20 MG eCW1 ( [facility]) COMPRESSION STOCKINGS 15-20 mmHg UNK 02/26/2021 12:00:00 AM EDT active COMPRESSION STOCKINGS 15-20 mmHg eCW1 ([facility]) COMPRESSION STOCKINGS 15-20 mmHg UNK 02/26/2021 12:00:00 AM EDT active COMPRESSION STOCKINGS 15-20 mmHg eCW1 ([facility]) COMPRESSION STOCKINGS 15-20 mmHg UNK 02/26/2021 12:00:00 AM EDT active COMPRESSION STOCKINGS 15-20 mmHg eCW1 ([facility]) Furosemide 20 MG Oral Tablet Furosemide 20 MG 02/26/2021 12:00:00 A M EDT 1.0 {tablet} active Furosemide 20 MG eCW1 ( [facility]) COMPRESSION STOCKINGS 15-20 mmHg UNK 02/26/2021 12:00:00 AM EDT active COMPRESSION STOCKINGS 15-20 mmHg eCW1 ([facility]) COMPRESSION STOCKINGS 15-20 mmHg UNK 02/26/2021 12:00:00 AM EDT active COMPRESSION STOCKINGS 15-20 mmHg eCW1 ([facility]) Furosemide 20 MG Oral Tablet Furosemide 20 MG 02/26/2021 12:00:00 A M EDT 1.0 {tablet} active Furosemide 20 MG eCW1 ( [facility]) Furosemide 20 MG Oral Tablet Furosemide 20 MG 02/26/2021 12:00:00 A M EDT 1.0 {tablet} active Furosemide 20 MG eCW1 ( [facility]) Furosemide 20 MG Oral Tablet Furosemide 20 MG 02/26/2021 12:00:00 A M EDT 1.0 {tablet} active Furosemide 20 MG eCW1 ( [facility]) Furosemide 20 MG Oral Tablet Furosemide 20 MG 02/26/2021 12:00:00 A M EDT 1.0 {tablet} active Furosemide 20 MG eCW1 ( [facility]) Furosemide 20 MG Oral Tablet Furosemide 20 MG 02/26/2021 12:00:00 A M EDT 1.0 {tablet} active Furosemide 20 MG eCW1 ( [facility]) Furosemide 20 MG Oral Tablet Furosemide 20 MG 02/26/2021 12:00:00 A M EDT 1.0 {tablet} active Furosemide 20 MG eCW1 ( [facility]) COMPRESSION STOCKINGS 15-20 mmHg UNK 02/26/2021 12:00:00 AM EDT active COMPRESSION STOCKINGS 15-20 mmHg eCW1 ([facility]) COMPRESSION STOCKINGS 15-20 mmHg UNK 02/26/2021 12:00:00 AM EDT active COMPRESSION STOCKINGS 15-20 mmHg eCW1 ([facility]) COMPRESSION STOCKINGS 15-20 mmHg UNK 02/26/2021 12:00:00 AM EDT active COMPRESSION STOCKINGS 15-20 mmHg eCW1 ([facility]) COMPRESSION STOCKINGS 15-20 mmHg UNK 02/26/2021 12:00:00 AM EDT active COMPRESSION STOCKINGS 15-20 mmHg eCW1 ([facility]) COMPRESSION STOCKINGS 15-20 mmHg UNK 02/26/2021 12:00:00 AM EDT active COMPRESSION STOCKINGS 15-20 mmHg eCW1 ([facility]) COMPRESSION STOCKINGS 15-20 mmHg UNK 02/26/2021 12:00:00 AM EDT active COMPRESSION STOCKINGS 15-20 mmHg eCW1 ([facility]) Furosemide 20 MG Oral Tablet Furosemide 20 MG 02/26/2021 12:00:00 A M EDT 1.0 {tablet} active Furosemide 20 MG eCW1 ( [facility]) COMPRESSION STOCKINGS 15-20 mmHg UNK 02/26/2021 12:00:00 AM EDT active COMPRESSION STOCKINGS 15-20 mmHg eCW1 ([facility]) Furosemide 20 MG Oral Tablet Furosemide 20 MG 02/26/2021 12:00:00 A M EDT 1.0 {tablet} active Furosemide 20 MG eCW1 ( [facility]) Furosemide 20 MG Oral Tablet Furosemide 20 MG 02/26/2021 12:00:00 A M EDT 1.0 {tablet} active Furosemide 20 MG eCW1 ( [facility]) COMPRESSION STOCKINGS 15-20 mmHg UNK 02/26/2021 12:00:00 AM EDT active COMPRESSION STOCKINGS 15-20 mmHg eCW1 ([facility]) Insurance Providers Payer name Policy type / Coverage type Policy ID Covered republican ID Covered republican's relationship to rangel Policy Rangel Plan Information [place]/307 [id number] SP [id number] [place]/307 [id number] SP [id number] [place] 020/520 [id number] SP [id number] BCBS GENERIC C [id number] Self WM [id number] [place] 020/520 [id number] SP [id number] [place] 020/520 [id number] SP [id number] [employer] and Blue Shield - [place] Blue Cross/B lue Shield [id number] Self [id number] ANSI-Commercial [id number] ANSI-Commercial [id number] ANSI-Commercial [id number] ANSI-Commercial [id number] ANSI-Commercial [id number]-[id number]-wbee-5z3f-[id number] ANSI-Commercial [id number]-7tav-3d43-[id number]-9chk-6y41-[id number] ANSI-Commercial [id number]-n759-347v-di56-[id number] [id number]-sb05-[id number] ANSI-Commercial eium33sq-49x3-2n45-nhit-[id number] twwp18ws-18z1-4l20-zjyn-v3x58r6n7hm3 ANSI-Commercial a5d85426-7ks9-274y-n033-4936p3050p7u i5e11053-3ft3-001i-q832-7244a5781a0o ANSI-Commercial fz9h46y9-7c6y-13k6-o8lx-x5190171nbj3 zp6b28a6-8f3p-60p3-o9fh-l2311718jue5 ANSI-Commercial 0hu3n62v-c30y-8bl6-rao7-5b6977ct1w92 2wn0l09i-c86b-9tx4-crc0-2v0857pe9n04 ANSI-Commercial 9n5b8528-4825-65f7-38c4-f56w686z2j50 9n4w4123-0748-48s1-32y5-b23c792f8n32 ANSI-Commercial clv9146w-c2jh-5r9p-o6ew-r2h2ve8y1096 tqc7203b-o5vg-6b4v-q0lo-t5d1kj3w7953 ANSI-Commercial x492y9yb-g3j9-6wrg-23w7-049q45357sj0 x726r4vj-e9v2-9duf-86x0-769j73168mj5 ANSI-Commercial 28o2cwm8-km37-4n4g-o8a5-zk035ut32772 18n0osd9-nk41-2a2y-s5f8-ps071xf42645 ANSI-Commercial 7u76170x-8s64-4583-d9t1-12bck654xjw7 7z67131o-5s74-5645-k7d7-85kxs820stk3 ANSI-Commercial 3bn0x313-1h2g-79q1-84xv-54bh886mbcqb 4qa8h160-2y2u-10j0-61yi-24jc058zimzl ANSI-Commercial 2m80p063-3858-62r3-p556-2id6m4wvxz67 7w47l763-3891-69j2-r499-8te7l5rafv63 ANSI-Commercial j11a54ae-0357-456z-d647-1v08631885l5 i33b35hn-2360-750e-y818-0g61371147q2 ANSI-Commercial 95310wfz-40g4-7mu7-8ci9-5o9e23019b5h 80679ghp-83c1-6ry8-6my5-3x3y33403n2q ANSI-Commercial 53bs3f73-ehb2-47z6-1nu5-9625h021519s 57he5t66-lqp6-91v7-4on7-1146l656893b ANSI-Commercial l5u0hj6u-4u70-9913-e74b-t9qz45nu3398 d5l0kr1d-7y61-3677-e35w-m0jp85ca0824 ANSI-Commercial r8eh57zx-5g16-1008-cl18-27l43q240w8t n7xw73fv-9r54-8059-pt14-46x02t696b8m ANSI-Commercial 886n8942-1tz3-21lf-6632-mla6831xmj93 886n9002-8mm0-49fq-5031-nmx5695ait88 ANSI-Commercial 20p06618-7f00-5565-3tj8-90s5a9o21ed2 91z20195-7p42-6940-4vc1-59g9n8q66tb9 ANSI-Commercial 37z3l898-6t08-9431-m961-kto664b2wl1c 65n5u930-0s63-4011-o493-cah967n1gq8g ANSI-Commercial ls57uhme-5028-5s97-di48-5j4k46u0dq8y sh67hdbo-0425-8b71-qu60-0t6a59l3ha9c ANSI-Commercial a4518446-c8ny-9867-e686-9q7s2de9411e y0550541-e9mn-9803-j618-6k8v1cm0588g ANSI-Commercial 4z8ex67q-yo09-87uz-a870-o136cv01k113 2p2bz75g-id53-39wr-b290-i476qh98s953 ANSI-Commercial y225o3g3-h34r-411r-hl42-05w2a8332vkb n149i9s9-h57t-562i-wg43-21t2o1916zvu ANSI-Commercial 7mh29939-svgo-388l-8m1s-vrs2wpo06f5g 8uq45198-yhxd-411u-2f2t-swm7bpc67j1a ANSI-Commercial g09w4725-aa53-472a-03t2-097584557w52 d74l3159-hj02-798n-96c5-369692817v86 ANSI-Commercial 9g6as381-q3ki-4l9a-438g-f01a2935i22c 4c8yh221-z8mb-7w5d-901y-l18b9238c59m ANSI-Commercial k8a57250-h386-81fi-5265-d858x6s875l7 z4k33965-a843-53kd-8139-x171o1o690f5 ANSI-Commercial 6775153n-1koz-34e1-j013-v13097j0b546 8387739w-9uza-61n0-n401-c36731n4f810 ANSI-Commercial 98exn73p-8dxw-08n7-x18p-h98003k7ray6 79zse16b-3npx-78m1-z96r-y22298e8usu3 ANSI-Commercial pq12f9w0-3166-4312-a546-1x76axd57618 cm19x2j0-6830-4323-c561-4f59xev67067 ANSI-Commercial f285q823-wj6n-868m-648w-71217171x1d2 n090e898-wm4e-513d-442x-66752531x3r5 ANSI-Commercial 1j736038-a526-94sm-9788-o1111d1g2019 7g196570-d224-42qf-3397-s4953t1g4849 ANSI-Commercial a1e48o95-n363-1n1z-c2uv-6732508749f9 a2w28c56-m579-8o7r-f2wi-8078203461f9 ANSI-Commercial 1g5j3272-ol22-9327-ec49-63723vwa87gl 4s6k9811-tp77-9391-gb55-16867ntw46xr ANSI-Commercial 19j76386-45o4-9762-n9rf-21gr5x147n27 82j37825-89j4-8218-j0xo-14oq4j596q51 ANSI-Commercial 83d02cc8-x7zz-46ls-b45q-70m916z0ae24 59e83de6-i8bh-41pl-b33n-24v529c4nl67 ANSI-Commercial b6icc836-w5x5-7u06-ev14-22xr2r0z90ud h5bzp208-y5e2-8x62-qu88-72el6t5w48go ANSI-Commercial 249f35y1-478k-7m4b-315d-50f825vj3r2d 109w04r9-023w-0z8a-824q-19m987ds1s6p ANSI-Commercial 63903487-2974-2745-6u0n-s6pvbxh839b9 30444414-4398-5594-4d9p-h2vaaga600c8 [facility] Health Maintenance Organization (O) [id number] Self [id number] ANSI-Commercial 1x549948-1783-9j21-tu90-c4h7418d9780 5r360432-5309-3x96-vm29-w3b1305r7612 ANSI-Commercial 01d77597-e47m-4591-88o0-5wjxs9204437 89e47081-i83r-6493-78o9-5ttpx3441413 ANSI-Commercial n37j1556-g0xv-4066-e4p7-487459z81y6h a79r1461-d3ac-9008-i7t5-743989z26z3w ANSI-Commercial 655ov776-j091-0956-p63q-5x0d3n530646 344mi630-g955-5743-g02v-2j4c0f127447 ANSI-Commercial u5pc856a-jkmu-849j-9308-512336559zq1 m2ar862z-nalh-850y-6006-565798601hl0 ANSI-Commercial u447170a-3o67-00sj-781w-19t306l356p5 h925681d-6f53-29vg-543o-13j277x078f9 ANSI-Commercial o367t888-xu74-0159-5u33-152q9964r912 n221v927-hw58-3654-1h91-418m8139u274 ANSI-Commercial 5wk1945y-7q77-52ne-2977-mriw62yb8q0w 6fq1514t-8u12-58zo-8885-nkpq15ba9e6h ANSI-Commercial 7wk1x6r2-8493-137k-53u1-27v360xukik4 4nj2e3f1-6933-029r-63s2-75m118jpwkl4 ANSI-Commercial 723151g1-84wr-5585-7934-1nz29zoe68n7 381361b9-96mm-9416-7781-9so70eij62c7 ANSI-Commercial i505kn59-9i84-9414-1u96-2g3f2008ij50 o583xa77-1i49-2084-0f89-0h1d0353hx17 [employer] [place] P[place]/307 [id number] SP [id number] ANSI-Commercial 794k714g-0c52-89sr-kaq0-5nam46s8885x 654i086s-0d14-22ua-qrx1-2vql54a2243l ANSI-Commercial 3s15p87s-5mm3-2107-i6z3-p220297y833m 0i11y10x-1nl6-0055-l5k0-z136666g544j [place] [place] 020/520 [id number] SP [id number] [employer] [place] 020/520 [id number] SP [id number] SELF PAY UNAVAILABLE SP UNAVAILA BLE [employer] Health Maintenance Organization (HMO) [id number] Self [employer] [place] P[place] 302/307 [id number] SP [id number] [employer] [place] 306/806 [id number] SP [id number] [employer] B [id number] S [id number] [employer] [place] PPO 302/307 [id number] SP [id number] [employer] [place] 302/307 [id number] SP [id number] [employer] [place] PPO 302/307 [id number] SP [id number] [employer] B [id number] S [id number] [employer] [place] PPO 302/307 [id number] SP [id number] [employer] [place] PPO 302/307 [id number] SP [id number] Problems, Conditions, and Diagnoses Code Display Name Description Problem Type Effective Dates Data Source(s) D50.9 [id number] Iron deficiency anemia, unspecif ied iron deficiency anemia type Problem 02/26/2021 12:00:00 AM EDT eCW1 ([facility]) R51 [id number] Headache, temporal Problem 02/26/2021 12:00: 00 AM EDT eCW1 ([facility]) I50.32 [id number] Chronic diastolic congestive heart failur e Problem 02/26/2021 12:00:00 AM EDT eCW1 ([facility]) I87.2 [id number] Venous insufficiency of both lower extrem ities Problem 02/26/2021 12:00:00 AM EDT eCW1 ([facility]) D63.8 [id number] Anemia, chronic disease Problem 10/23/2020 1 2:00:00 AM EST eCW1 ([facility]) Surgeries/Procedures Procedure Description Date Indications Data Source(s) OFFICE OUTPATIENT VISIT 25 MINUTES 05/25/2021 12:00:00 AM EDT [facility] ([facility], ) Endoscopy Upper GI Biopsy 01/16/[facility]21 [facility] OFFICE OUTPATIENT VISIT 15 MINUTES 11/24/2020 12:00:00 AM EDT [facility] ([facility]) Results ID Date Data Source VITAMIN D 25-HYDROXY 02/26/2021 12:00:00 AM EDT eCW1 ([facility]) Name Value Range Interpretation Code Description Data Shannon rce(s) Supporting Document(s) 38.3 30.0-100.0 TOTAL 25(OH) VITAMIN D eC W1 ([facility]) ID Date Data Source PTH INTACT 02/26/2021 12:00:00 AM EDT eCW1 ([facility]) Name Value Range Interpretation Code Description Data Shannon rce(s) Supporting Document(s) 44.0 18.5-88.0 PTH INTACT eCW1 ([facility]) ID Date Data Source PSA SCREENING 02/26/2021 12:00:00 AM EDT eCW1 ([facility]) Name Value Range Interpretation Code Description Data Shannon rce(s) Supporting Document(s) 0.99 < 4.00 PSA SCREENING W1 ([facility]) ID Date Data Source [id number] 02/26/2021 12:00:00 AM EDT eCW1 ([facility]) Name Value Range Interpretation Code Description Data Shannon rce(s) Supporting Document(s) Hemoglobin A1c/Hemoglobin.total in Blood 7.6 HEMOGLOBIN A1c eCW1 ([facility]) HEMOGLOBIN A1c ID Date Data Source FREE T4 & TSH PANEL 02/26/2021 12:00:00 AM EDT eCW1 ([facility]) Name Value Range Interpretation Code Description Data Shannon rce(s) Supporting Document(s) 2.020 0.358-3.740 THYROID STIMULATING HORM ONE eCW1 ([facility]) 0.82 0.76-1.46 FREE T4 eCW1 ([facility]) ID Date Data Source FERRITIN 02/26/2021 12:00:00 AM EDT eCW1 ([facility]) Name Value Range Interpretation Code Description Data Shannon rce(s) Supporting Document(s) 17 81-388 FERRITIN eCW1 ([facility]) FERRITIN ID Date Data Source Comprehensive Metabolic Profile (CMP) 02/26/2021 12:00:00 AM EDT eCW1 ([facility]) Name Value Range Interpretation Code Description Data Shannon rce(s) Supporting Document(s) 182 70-100 GLUCOSE, FASTING eCW1 ([facility]) 18 7-18 BLOOD UREA NITROGEN eCW1 ([facility]) 1.02 0.70-1.30 CREATININE FOR GFR eCW1 ([facility]) > 60.0 >49 GLOMERULAR FILTRATION RATE eCW 1 ([facility]) 105 98-107 CHLORIDE LEVEL eCW1 ([facility]) 5.2 3.5-5.1 POTASSIUM SERUM eCW1 ([facility]) 30 21-32 CARBON DIOXIDE LEVEL eCW1 ([facility]) 139 136-145 SODIUM LEVEL eCW1 ([facility]) 66 7-37 AST/SGOT eCW1 ([facility]) 9.1 8.8-10.2 CALCIUM LEVEL eCW1 ([facility]) 98 12-78 ALT/SGPT eCW1 ([facility]) 0.7 0.2-1.0 BILIRUBIN,TOTAL eCW1 ([facility]) 7.7 6.4-8.2 TOTAL PROTEIN eCW1 ([facility]) 130 45-117 ALKALINE PHOSPHATASE eCW1 ([facility]) 1.0 ALBUMIN/GLOBULIN RATIO eCW1 ([facility]) 3.8 3.2-5.2 ALBUMIN eCW1 ([facility]) ID Date Data Source CBC with Differential 02/26/2021 12:00:00 AM EDT eCW1 ([facility]) Name Value Range Interpretation Code Description Data Shannon rce(s) Supporting Document(s) 4.64 4.30-6.10 RED BLOOD COUNT eCW1 ([facility]) 13.3 13.5-17.5 HEMOGLOBIN eCW1 ([facility]) 5.7 4.0-10.0 WHITE BLOOD COUNT eCW1 ([facility]) 87.9 80.0-96.0 MEAN CORPUSCULAR VOLUME e CW1 ([facility]) 40.8 42.0-52.0 HEMATOCRIT eCW1 ([facility]) 28.7 27.0-33.0 MEAN CORPUSCULAR HEMOGLOB IN eCW1 ([facility]) 32.6 32.0-36.5 MEAN CORPUSCULAR HGB CONC eCW1 ([facility]) 144 150-450 PLATELET COUNT, AUTOMATED eCW1 ([facility]) 13.7 11.5-14.5 RED CELL DISTRIBUTION WID TH eCW1 ([facility]) 62.1 36.0-66.0 NEUTROPHILS % eCW1 ([facility]) 11.0 2.0-8.0 MONO % eCW1 ([facility]) 24.5 24.0-44.0 LYMPH % eCW1 ([facility]) 0.7 0.0-1.0 BASO % eCW1 ([facility]) 1.4 1.5-5.0 LYMPH # eCW1 ([facility]) 3.5 1.5-8.5 NEUTROPHILS # eCW1 ([facility]) 1.2 0.0-3.0 EOS % eCW1 ([facility]) 0.0 0.0-0.2 BASO # eCW1 ([facility]) 0.6 0.0-0.8 MONO # eCW1 ([facility]) 0.1 0.0-0.5 EOS # eCW1 ([facility]) ID Date Data Source NT-PRO BNP 02/26/2021 12:00:00 AM EDT eCW1 ([facility]) Name Value Range Interpretation Code Description Data Shannon rce(s) Supporting Document(s) 43 <125 NT-PRO BNP eCW1 ([facility]) ID Date Data Source AMMONIA 02/26/2021 12:00:00 AM EDT eCW1 ([facility]) Name Value Range Interpretation Code Description Data Shannon rce(s) Supporting Document(s) 43 <32 AMMONIA eCW1 ([facility]) ID Date Data Source [id number] 01/16/2021 09:27:00 AM EDT [facility] ([facility], ) Name Value Range Interpretation Code Description Data Shannon rce(s) Supporting Document(s) Surgical pathology study Laboratory test result [facility] ([facility], ) <content>FINAL DIAGNOSIS</content>
< content></content>
<content>Gastric polyps, biopsy:</content>
<content>Gastric mucosa with hyperplastic polyp.</content>
<content>No evidence for H. pylori like organisms on H&E and</content>
<content>immunohistochemical staining.</content>
<content>01/20/2021 - 09</content>
<content></content>
<content>CLINICAL DIAGNOSIS</content>
<content></content>
<content>Esophageal varices</content>
<content>01/16/2021 - 1432</content>
<content></content>
<content>GROSS DIAGNOSIS</content>
<content></content>
<content>Received in formalin labeled "biopsy gastric polyps" and consists of two</content>
<content> fragments of wilson tissue 0.4 x 0.2 x 0.2 cm. in aggregate. All in one.</content>
<content>-SV</content>
<content>01/16/2021 - 1432</content>
<content></content>
<content>Signed CHUCKY HOOPER MD 01/20/2021 0908</content>
<content></content> ID Date Data Source [id number] 01/14/2021 04:16:00 PM [facility]T [facility] Name Value Range Interpretation Code Description Data Shannon rce(s) Supporting Document(s) Iitrq-0-Rcnklbygbff [Mass/volume] in Serum or Plasma 2.3 ng/mL Normal (applies to non-numeric results) [facility] ([facility], ) THE AFP ASSAY IS PERFORMED ON THE Pebble[employer] BY CHEMILUMINESCENCE AND SHOULD NOT BE COMPARED INTERCHANGEABLY WITH OTHER METHODS. IT SHOULD NOT BE USED ALONE A SCREENING TEST OR DIAGNOSIS FOR THE PRESENCE OR ABSENCE OF MALIGNANT DISEASE. THESE RESULTS ARE NOT INTERPRETABLE IN FEMALES. PREDICTIONS OF DISEASE RECURRENCE SHOULD NOT BE BASED SOLELY ON VALUES OBTAINED FROM SERIAL PATIENT SERUM VALUES. ID Date Data Source [id number] 01/12/2021 09:45:00 AM EDT [facility] Name Value Range Interpretation Code Description Data Shannon rce(s) Supporting Document(s) SARS-CoV-2 (COVID-19) RNA [Presence] in Respiratory specimen by BERTRAND with probe detection Not Detected [facility] This lab was ordered by [facility] and reported by [employer]. ID Date Data Source INSULIN LEVEL 10/23/2020 12:00:00 AM EST eCW1 ([facility]) Name Value Range Interpretation Code Description Data Shannon rce(s) Supporting Document(s) 21.9 2.6-24.9 INSULIN LEVEL eCW1 ([facility]) ID Date Data Source TOTAL IRON BINDING CAPACIT 10/23/2020 12:00:00 AM EST eCW1 ( [facility]) Name Value Range Interpretation Code Description Data Shannon rce(s) Supporting Document(s) 55 65-175 IRON (FE) eCW1 ([facility]) IRON (FE) 347 250-450 TOTAL IRON BINDING CAPACI TY eCW1 ([facility]) TOTAL IRON BINDING CAPACITY 15.9 19.7-50.0 PERCENT SATURATION eCW1 ([facility]) PERCENT SATURATION Procedure Social History Code Duration Value Status Description Data Source(s ) Smoking 07/07/2021 12:00:00 AM EDT Former Smoker completed Former Smoker eCW1 ([facility]) Smoking 07/07/2021 12:00:00 AM EDT Former Smoker completed Former Smoker eCW1 ([facility]) Smoking 07/07/2021 12:00:00 AM EDT Former Smoker completed Former Smoker eCW1 ([facility]) Smoking 07/07/2021 12:00:00 AM EDT Former Smoker completed Former Smoker eCW1 ([facility]) Smoking 02/26/2021 12:00:00 AM EDT Former Smoker completed Former Smoker eCW1 ([facility]) Smoking 02/26/2021 12:00:00 AM EDT Former Smoker completed Former Smoker eCW1 ([facility]) Smoking 02/26/2021 12:00:00 AM EDT Former Smoker completed Former Smoker eCW1 ([facility]) Smoking 02/26/2021 12:00:00 AM EDT Former Smoker completed Former Smoker eCW1 ([facility]) Smoking 02/26/2021 12:00:00 AM EDT Former Smoker completed Former Smoker eCW1 ([facility]) Smoking 02/26/2021 12:00:00 AM EDT Former Smoker completed Former Smoker eCW1 ([facility]) Smoking 02/26/2021 12:00:00 AM EDT Former Smoker completed Former Smoker eCW1 ([facility]) Smoking 02/26/2021 12:00:00 AM EDT Former Smoker completed Former Smoker eCW1 ([facility]) Smoking 02/26/2021 12:00:00 AM EDT Former Smoker completed Former Smoker eCW1 ([facility]) Smoking 02/26/2021 12:00:00 AM EDT Former Smoker completed Former Smoker eCW1 ([facility]) Smoking 02/26/2021 12:00:00 AM EDT Former Smoker completed Former Smoker eCW1 ([facility]) Smoking 02/26/2021 12:00:00 AM EDT Former Smoker completed Former Smoker eCW1 ([facility]) Smoking 02/26/2021 12:00:00 AM EDT Former Smoker completed Former Smoker eCW1 ([facility]) Smoking 02/26/2021 12:00:00 AM EDT Former Smoker completed Former Smoker eCW1 ([facility]) Smoking 02/26/2021 12:00:00 AM EDT Former Smoker completed Former Smoker eCW1 ([facility]) Smoking 02/26/2021 12:00:00 AM EDT Former Smoker completed Former Smoker eCW1 ([facility]) Smoking 02/26/2021 12:00:00 AM EDT Former Smoker completed Former Smoker eCW1 ([facility]) Smoking 02/26/2021 12:00:00 AM EDT Former Smoker completed Former Smoker eCW1 ([facility]) Smoking 02/26/2021 12:00:00 AM EDT Former Smoker completed Former Smoker eCW1 ([facility]) Smoking 10/23/2020 12:00:00 AM EST Former Smoker completed Former Smoker eCW1 ([facility]) Smoking 10/23/2020 12:00:00 AM EST Former Smoker completed Former Smoker eCW1 ([facility]) Smoking 10/23/2020 12:00:00 AM EST Former Smoker completed Former Smoker eCW1 ([facility]) Smoking 10/23/2020 12:00:00 AM EST Former Smoker completed Former Smoker eCW1 ([facility]) Smoking 10/23/2020 12:00:00 AM EST Former Smoker completed Former Smoker eCW1 ([facility]) Smoking 10/23/2020 12:00:00 AM EST Former Smoker completed Former Smoker eCW1 ([facility]) Smoking 10/23/2020 12:00:00 AM EST Former Smoker completed Former Smoker eCW1 ([facility]) Smoking 10/23/2020 12:00:00 AM EST Former Smoker completed Former Smoker eCW1 ([facility]) Smoking 10/23/2020 12:00:00 AM EST Former Smoker completed Former Smoker eCW1 ([facility]) Smoking 10/23/2020 12:00:00 AM EST Former Smoker completed Former Smoker eCW1 ([facility]) Vital Signs ID Date Data Source UNK Name Value Range Interpretation Code Description Data Source(s) Systolic blood pressure 130 mm[Hg] 130 mm[Hg] M [facility] ([facility]) Diastolic blood pressure 82 mm[Hg] 82 mm[Hg] [facility] ([facility]) Body height 72 [in_i] 72 [in_i] [facility] ([facility]) 6'0" Body weight 256.00 [lb_av] 256.00 [lb_av] [facility] Body mass index (BMI) [Ratio] 34.7 kg/m2 34.7 k g/m2 [facility] ([facility]) [place] body weight 178 [lb_av] 178 [lb_av] [facility] Body weight 116.122 kg 116.122 kg [facility] ([facility]) Body surface area Derived from formula 2.37 m2 2.37 m2 [facility] ([facility]) Body weight 252.0 [lb_av] 252.0 [lb_av] eCW1 ([facility]) Body height 72 [in_i] 72 [in_i] W1 ([facility]) Body mass index (BMI) [Ratio] 34.17 kg/m2 34.17 kg/m2 [facility] ([facility]) Heart rate 68 /min 68 /min eCW1 ([facility]) Respiratory rate 20 /min 20 /min eCW1 ([facility]) Body temperature 98.0 [degF] 98.0 [degF] eCW1 ( [facility]) Systolic blood pressure 130 mm[Hg] 130 mm[Hg] e CW1 ([facility]) Diastolic blood pressure 82 mm[Hg] 82 mm[Hg] eCW1 ([facility]) Body height 72 [in_i] 72 [in_i] [facility] ([facility]) 6'0" Body weight 256.00 [lb_av] 256.00 [lb_av] [facility] T ([facility]) Body mass index (BMI) [Ratio] 34.7 kg/m2 34.7 k g/m2 [facility] ([facility]) [place] body weight 178 [lb_av] 178 [lb_av] [facility] T ([facility]) Body weight 116.122 kg 116.122 kg [facility] ([facility]) Body surface area Derived from formula 2.37 m2 2.37 m2 [facility] ([facility]) Body weight 256.00 [lb_av] 256.00 [lb_av] [facility] T ([facility]) Body mass index (BMI) [Ratio] 34.7 kg/m2 34.7 k g/m2 [facility] ([facility]) [place] body weight 178 [lb_av] 178 [lb_av] [facility] T ([facility]) Body weight 116.122 kg 116.122 kg [facility] ([facility]) Body surface area Derived from formula 2.37 m2 2.37 m2 [facility] ([facility]) Systolic blood pressure 147 mm[Hg] 147 mm[Hg] M EDENT ([facility]) Diastolic blood pressure 76 mm[Hg] 76 mm[Hg] [facility] ([facility]) Body height 72 [in_i] 72 [in_i] [facility] 6'0" Body weight 250.4 [lb_av] 250.4 [lb_av] eCW1 ([facility]) Body height 72 [in_i] 72 [in_i] eCW1 ([facility]) Body mass index (BMI) [Ratio] 33.96 kg/m2 33.96 kg/m2 eCW1 ([facility]) Heart rate 62 /min 62 /min eCW1 ([facility]) Respiratory rate 20 /min 20 /min eCW1 ([facility]) Body temperature 97.3 [degF] 97.3 [degF] eCW1 ( [facility]) Systolic blood pressure 118 mm[Hg] 118 mm[Hg] e CW1 ([facility]) Diastolic blood pressure 62 mm[Hg] 62 mm[Hg] eCW1 ([facility]) Patient Treatment Plan of Care Planned Activity Planned Date Details Description Data Source (s) ferrous sulfate 325 MG Delayed Release Oral Tablet 03/04/2021 12 :00:00 AM EDT eCW1 ([facility]) ferrous sulfate 325 MG Delayed Release Oral Tablet 03/04/2021 12 :00:00 AM EDT eCW1 ([facility]) ferrous sulfate 325 MG Delayed Release Oral Tablet 03/04/2021 12 :00:00 AM EDT eCW1 ([facility]) ferrous sulfate 325 MG Delayed Release Oral Tablet 03/04/2021 12 :00:00 AM EDT eCW1 ([facility]) ferrous sulfate 325 MG Delayed Release Oral Tablet 03/04/2021 12 :00:00 AM EDT eCW1 ([facility]) ferrous sulfate 325 MG Delayed Release Oral Tablet 03/04/2021 12 :00:00 AM EDT eCW1 ([facility]) ferrous sulfate 325 MG Delayed Release Oral Tablet 03/04/2021 12 :00:00 AM EDT eCW1 ([facility]) ferrous sulfate 325 MG Delayed Release Oral Tablet 03/04/2021 12 :00:00 AM EDT eCW1 ([facility]) ferrous sulfate 325 MG Delayed Release Oral Tablet 03/04/2021 12 :00:00 AM EDT eCW1 ([facility]) ferrous sulfate 325 MG Delayed Release Oral Tablet 03/04/2021 12 :00:00 AM EDT eCW1 ([facility]) ferrous sulfate 325 MG Delayed Release Oral Tablet 03/04/2021 12 :00:00 AM EDT eCW1 ([facility]) ferrous sulfate 325 MG Delayed Release Oral Tablet 03/04/2021 12 :00:00 AM EDT eCW1 ([facility]) ferrous sulfate 325 MG Delayed Release Oral Tablet 03/04/2021 12 :00:00 AM EDT eCW1 ([facility]) ferrous sulfate 325 MG Delayed Release Oral Tablet 03/04/2021 12 :00:00 AM EDT eCW1 ([facility]) ferrous sulfate 325 MG Delayed Release Oral Tablet 03/04/2021 12 :00:00 AM EDT eCW1 ([facility]) ferrous sulfate 325 MG Delayed Release Oral Tablet 03/04/2021 12 :00:00 AM EDT eCW1 ([facility]) ferrous sulfate 325 MG Delayed Release Oral Tablet 03/04/2021 12 :00:00 AM EDT eCW1 ([facility]) ferrous sulfate 325 MG Delayed Release Oral Tablet 03/04/2021 12 :00:00 AM EDT eCW1 ([facility]) ferrous sulfate 325 MG Delayed Release Oral Tablet 03/04/2021 12 :00:00 AM EDT eCW1 ([facility]) ferrous sulfate 325 MG Delayed Release Oral Tablet 03/04/2021 12 :00:00 AM EDT eCW1 ([facility]) Furosemide 20 MG Oral Tablet 02/26/2021 12:00:00 AM EDT eCW1 ([facility]) COMPRESSION STOCKINGS 15-20 mmHg 02/26/2021 12:00:00 AM EDT eCW1 ([facility]) COMPRESSION STOCKINGS 15-20 mmHg 02/26/2021 12:00:00 AM EDT eCW1 ([facility]) Furosemide 20 MG Oral Tablet 02/26/2021 12:00:00 AM EDT eCW1 ([facility]) COMPRESSION STOCKINGS 15-20 mmHg 02/26/2021 12:00:00 AM EDT eCW1 ([facility]) Furosemide 20 MG Oral Tablet 02/26/2021 12:00:00 AM EDT eCW1 ([facility]) COMPRESSION STOCKINGS 15-20 mmHg 02/26/2021 12:00:00 AM EDT eCW1 ([facility]) Furosemide 20 MG Oral Tablet 02/26/2021 12:00:00 AM EDT eCW1 ([facility]) COMPRESSION STOCKINGS 15-20 mmHg 02/26/2021 12:00:00 AM EDT eCW1 ([facility]) Furosemide 20 MG Oral Tablet 02/26/2021 12:00:00 AM EDT eCW1 ([facility]) Furosemide 20 MG Oral Tablet 02/26/2021 12:00:00 AM EDT eCW1 ([facility]) COMPRESSION STOCKINGS 15-20 mmHg 02/26/2021 12:00:00 AM EDT eCW1 ([facility]) Furosemide 20 MG Oral Tablet 02/26/2021 12:00:00 AM EDT eCW1 ([facility]) COMPRESSION STOCKINGS 15-20 mmHg 02/26/2021 12:00:00 AM EDT eCW1 ([facility]) COMPRESSION STOCKINGS 15-20 mmHg 02/26/2021 12:00:00 AM EDT eCW1 ([facility]) Furosemide 20 MG Oral Tablet 02/26/2021 12:00:00 AM EDT eCW1 ([facility]) COMPRESSION STOCKINGS 15-20 mmHg 02/26/2021 12:00:00 AM EDT eCW1 ([facility]) Furosemide 20 MG Oral Tablet 02/26/2021 12:00:00 AM EDT eCW1 ([facility]) COMPRESSION STOCKINGS 15-20 mmHg 02/26/2021 12:00:00 AM EDT eCW1 ([facility]) Furosemide 20 MG Oral Tablet 02/26/2021 12:00:00 AM EDT eCW1 ([facility]) COMPRESSION STOCKINGS 15-20 mmHg 02/26/2021 12:00:00 AM EDT eCW1 ([facility]) Furosemide 20 MG Oral Tablet 02/26/2021 12:00:00 AM EDT eCW1 ([facility]) COMPRESSION STOCKINGS 15-20 mmHg 02/26/2021 12:00:00 AM EDT eCW1 ([facility]) Furosemide 20 MG Oral Tablet 02/26/2021 12:00:00 AM EDT eCW1 ([facility]) COMPRESSION STOCKINGS 15-20 mmHg 02/26/2021 12:00:00 AM EDT eCW1 ([facility]) Furosemide 20 MG Oral Tablet 02/26/2021 12:00:00 AM EDT eCW1 ([facility]) COMPRESSION STOCKINGS 15-20 mmHg 02/26/2021 12:00:00 AM EDT eCW1 ([facility]) Furosemide 20 MG Oral Tablet 02/26/2021 12:00:00 AM EDT eCW1 ([facility]) COMPRESSION STOCKINGS 15-20 mmHg 02/26/2021 12:00:00 AM EDT eCW1 ([facility]) Furosemide 20 MG Oral Tablet 02/26/2021 12:00:00 AM EDT eCW1 ([facility]) COMPRESSION STOCKINGS 15-20 mmHg 02/26/2021 12:00:00 AM EDT eCW1 ([facility]) Furosemide 20 MG Oral Tablet 02/26/2021 12:00:00 AM EDT eCW1 ([facility]) COMPRESSION STOCKINGS 15-20 mmHg 02/26/2021 12:00:00 AM EDT eCW1 ([facility]) Furosemide 20 MG Oral Tablet 02/26/2021 12:00:00 AM EDT eCW1 ([facility]) COMPRESSION STOCKINGS 15-20 mmHg 02/26/2021 12:00:00 AM EDT eCW1 ([facility]) Furosemide 20 MG Oral Tablet 02/26/2021 12:00:00 AM EDT eCW1 ([facility]) COMPRESSION STOCKINGS 15-20 mmHg 02/26/2021 12:00:00 AM EDT eCW1 ([facility]) Furosemide 20 MG Oral Tablet 02/26/2021 12:00:00 AM EDT eCW1 ([facility])
[2021-08-06] MEDS ORDERED: ISOVUE-370 76% 100ML VIAL As Ordered ONE (16:51)
[2021-08-06 18:19] LABS: VENOUS BASE EXCESS 3.6 (-2.0-2.0); VENOUS HCO3 28.9 MEQ/L (23.0-27.0); VENOUS O2 SATURATION 36.7 % (60.0-80.0); VENOUS PARTIAL PRESSURE CO2 46.1 mmHg (38.0-50.0); VENOUS PARTIAL PRESSURE O2 22.5 mmHg (30.0-50.0); VENOUS PH 7.415 UNITS (7.330-7.430); VENOUS STANDARD HCO3 26.2 MEQ/L; VENOUS TOTAL CO2 30.3 MEQ/L (24.0-28.0)
[2021-08-06 18:21] LABS: BASO % 0.3 % (0.0-1.0); EOS % 0.4 % (0.0-3.0); HEMATOCRIT 38.7 % (42.0-52.0); HEMOGLOBIN 12.5 g/dl (13.5-17.5); LYMPH # 1.2 10^3/uL (1.5-5.0); LYMPH % 15.8 % (24.0-44.0); MEAN CORPUSCULAR HEMOGLOBIN 28.3 pg (27.0-33.0); MEAN CORPUSCULAR HGB CONC 32.3 g/dl (32.0-36.5); MEAN CORPUSCULAR VOLUME 87.8 fl (80.0-96.0); MONO # 1.1 10^3/uL (0.0-0.8); MONO % 13.4 % (2.0-8.0); NEUTROPHILS # 5.4 10^3/uL (1.5-8.5); NEUTROPHILS % 68.4 % (36.0-66.0); PLATELET COUNT, AUTOMATED 281 10^3/uL (150-450); RED BLOOD COUNT 4.41 10^6/uL (4.30-6.10); WHITE BLOOD COUNT 7.8 10^3/uL (4.0-10.0)
[2021-08-06 18:40] LABS: INR 1.11; PROTHROMBIN TIME 14.7 SECONDS (12.7-14.5)
[2021-08-06 18:41] LABS: PARTIAL THROMBOPLASTIN TIME 37.1 SECONDS (25.9-37.0)
[2021-08-06 19:14] LABS: D-DIMER QUANT 1535.62 ng/ml (<500)
--- NOTE | 2021-08-06 19:24 | REPVR ---
PROCEDURE INFORMATION: Exam: CTA Chest With Contrast Exam date and time: 08/06/2021 3:14 PM Age: 65 years old Clinical indication: Shortness of breath; Additional info: Persistant SOB post covid, R/O pe TECHNIQUE: Imaging protocol: Computed tomographic angiography of the chest with contrast. Axial, coronal and sagittal reformatted images were created and reviewed. 3D rendering (Not supervised by radiologist): MIP and/or 3D reconstructed images were created by the technologist. Radiation optimization: All CT scans at this facility use at least one of these dose optimization techniques: automated exposure control; mA and/or kV adjustment per patient size (includes targeted exams where dose is matched to clinical indication); or iterative reconstruction. Contrast material: ISOVUE 370; Contrast volume: 75 ml; Contrast route: INTRAVENOUS (IV); COMPARISON: DX Chest, 2 view -OUTSIDE PRIOR 08/06/2021 2:00 PM FINDINGS: Pulmonary arteries: Contrast opacification satisfactory. No intraluminal filling defect. Aorta: Minimal atherosclerotic disease. No aneurysm or dissection. Lungs: Patchy bilateral ground-glass infiltrates with associated interstitial thickening, predominantly peripheral in distribution. No confluent consolidation. Pleural spaces: Unremarkable. No pneumothorax. No pleural effusion. Heart: Unremarkable. No cardiomegaly. No pericardial effusion. Lymph nodes: Small mediastinal and right hilar lymph nodes, likely reactive. No pathologically enlarged lymph nodes. Diaphragm: Small hiatal hernia. Liver: Nodular hepatic contour, consistent with cirrhosis. Gallbladder and bile ducts: Status post cholecystectomy. No biliary ductal dilatation. Bones/joints: No acute osseous abnormality. Degenerative changes. Soft tissues: Unremarkable. IMPRESSION: 1. No CT evidence of pulmonary embolism. 2. Patchy bilateral ground-glass infiltrates with associated interstitial thickening, predominantly peripheral in distribution. Commonly reported imaging features of COVID-19 pneumonia are present. Other processes such as influenza pneumonia and organizing pneumonia, as can be seen with drug toxicity and connective tissue disease, can cause a similar imaging pattern. (Reference: Gray) 3. Additional findings, as above. REFERENCES: Gray Laura, et al., [employer] Society of [place] Expert Consensus Statement on Reporting Chest CT Findings Related to COVID-19. Endorsed by the Society of Thoracic Radiology, the [employer], and RSNA. Published November 28, 2019. Electronically signed by: Armand Rodriguez On 08/06/2021 19:24:04 PM
[2021-08-06] MEDS ORDERED: BENZ200C70 PO (19:33)
[2021-08-06] MEDS ORDERED: ALBU8.5H INH (19:33)
[2021-08-06 22:34] VITALS: BP 117/72
--- NOTE | 2021-08-07 01:10 | ECGEPIP ---
[facility] - ED Test Date: 2021-08-06 Pat Name: MIKAYLA ESPINOZA Department: Room: - Gender: Male [employer]: : [id number] Requested By: LM Arias Order Number: [id number] Reading MD: Mohan Barksdale Measurements Intervals [place] Rate: 72 P: 57 GA: 140 QRS: -12 QRSD: 98 T: 15 QT: 404 QTc: 442 Interpretive Statements Normal sinus rhythm Incomplete right bundle branch block NSTTW ABNORMALITY(S) SIMILAR TO 02/19/19 Electronically Signed on 08-07-2021 1:10:26 EST by Mohan Barksdale
== END 2021-08-06 22:38 | disposition home or self-care (01) ==
LOC: EDBD 14:49 → M ED 14:49
DX: U07.1 COVID-19 (principal); R06.02 Shortness of breath; I45.19 Other right bundle-branch block; E11.9 Type 2 diabetes mellitus without complications; I10 Essential (primary) hypertension; E78.5 Hyperlipidemia, unspecified; K74.60 Unspecified cirrhosis of liver; Z88.0 Allergy status to penicillin; Z88.1 Allergy status to other antibiotic agents; Z79.4 Long term (current) use of insulin; Z79.899 Other long term (current) drug therapy; Z79.82 Long term (current) use of aspirin
CPT/HCPCS: 36415; 71275; 80047; 82803; 85025; 85379; 85610; 85730; 93005; 94640; 96360; 96361; 99284; Q9967

== ENCOUNTER → 2021-11-20 | Outpatient (CLI) | payer BC ==
[~2021-11-20] MED LIST changes: +ALBU8.5H INH; +BENZ200C70 PO; -D31000TA2 PO; -LISI10TA15 PO; +LISI10TA24 PO; +VITA100093 PO
[2021-11-20 15:10] LABS: BASO % 0.6 % (0.0-1.0); EOS # 0.1 10^3/uL (0.0-0.5); EOS % 1.7 % (0.0-3.0); HEMATOCRIT 37.1 % (42.0-52.0); HEMOGLOBIN 12.2 g/dl (13.5-17.5); LYMPH # 1.1 10^3/uL (1.5-5.0); LYMPH % 30.3 % (24.0-44.0); MEAN CORPUSCULAR HEMOGLOBIN 28.1 pg (27.0-33.0); MEAN CORPUSCULAR HGB CONC 32.9 g/dl (32.0-36.5); MEAN CORPUSCULAR VOLUME 85.5 fl (80.0-96.0); MONO # 0.4 10^3/uL (0.0-0.8); MONO % 12.2 % (2.0-8.0); NEUTROPHILS # 1.9 10^3/uL (1.5-8.5); NEUTROPHILS % 54.6 % (36.0-66.0); PLATELET COUNT, AUTOMATED 135 10^3/uL (150-450); RED BLOOD COUNT 4.34 10^6/uL (4.30-6.10); WHITE BLOOD COUNT 3.5 10^3/uL (4.0-10.0)
[2021-11-20 15:33] LABS: HEMOGLOBIN A1c 9.1 %
[2021-11-20 15:41] LABS: ALBUMIN 3.7 GM/DL (3.2-5.2); ALT/SGPT 88 U/L (12-78); BILIRUBIN,TOTAL 0.5 MG/DL (0.2-1.0); BLOOD UREA NITROGEN 13 MG/DL (7-18); CALCIUM LEVEL 8.9 MG/DL (8.8-10.2); CARBON DIOXIDE LEVEL 31 MEQ/L (21-32); CHLORIDE LEVEL 105 MEQ/L (98-107); CREATININE FOR GFR 1.07 MG/DL (0.70-1.30); FERRITIN 19 NG/ML (26-388); GLOMERULAR FILTRATION RATE > 60.0 (>49); GLUCOSE, FASTING 182 MG/DL (70-100); MAGNESIUM LEVEL 2.2 MG/DL (1.8-2.4); NT-PRO BNP 85 PG/ML (<125); POTASSIUM SERUM 4.3 MEQ/L (3.5-5.1); SODIUM LEVEL 139 MEQ/L (136-145); TOTAL PROTEIN 7.6 GM/DL (6.4-8.2)
== END ==
LOC: M PLALAB 12:45
PROVIDERS: ATTEND Family Medicine
DX: E11.69 Type 2 diabetes mellitus with other specified complication (principal); I50.32 Chronic diastolic (congestive) heart failure; D50.9 Iron deficiency anemia, unspecified

== ENCOUNTER → 2022-05-04 | Outpatient (CLI) | payer BC ==
[2022-05-04 15:32] LABS: BASO % 0.7 % (0.0-1.0); EOS # 0.1 10^3/uL (0.0-0.5); EOS % 1.2 % (0.0-3.0); HEMATOCRIT 38.2 % (42.0-52.0); LYMPH # 1.3 10^3/uL (1.5-5.0); LYMPH % 31.1 % (24.0-44.0); MEAN CORPUSCULAR HEMOGLOBIN 25.8 pg (27.0-33.0); MEAN CORPUSCULAR HGB CONC 31.4 g/dl (32.0-36.5); MONO # 0.5 10^3/uL (0.0-0.8); MONO % 12.2 % (2.0-8.0); NEUTROPHILS # 2.2 10^3/uL (1.5-8.5); NEUTROPHILS % 54.3 % (36.0-66.0); PLATELET COUNT, AUTOMATED 150 10^3/uL (150-450); RED BLOOD COUNT 4.66 10^6/uL (4.30-6.10); WHITE BLOOD COUNT 4.1 10^3/uL (4.0-10.0)
[2022-05-04 15:47] LABS: INR 1.08; PARTIAL THROMBOPLASTIN TIME 34.9 SECONDS (25.9-37.0); PROTHROMBIN TIME 14.4 SECONDS (12.7-14.5)
[2022-05-04 15:58] LABS: ALBUMIN 3.5 GM/DL (3.2-5.2); ALT/SGPT 77 U/L (12-78); BILIRUBIN,TOTAL 0.5 MG/DL (0.2-1.0); BLOOD UREA NITROGEN 18 MG/DL (7-18); CALCIUM LEVEL 8.9 MG/DL (8.8-10.2); CARBON DIOXIDE LEVEL 28 MEQ/L (21-32); CHLORIDE LEVEL 105 MEQ/L (98-107); CHOLESTEROL LEVEL 155 MG/DL (<200); CHOLESTEROL RISK RATIO 4.078 (<5); CREATININE FOR GFR 1.12 MG/DL (0.70-1.30); FERRITIN 11 NG/ML (26-388); GLOMERULAR FILTRATION RATE > 60.0 (>49); GLUCOSE, FASTING 134 MG/DL (70-100); HDL CHOLESTEROL 38 MG/DL (>40); LDL CHOLESTEROL 76 MG/DL (<100); NON-HDL-C 117 MG/DL; POTASSIUM SERUM 4.3 MEQ/L (3.5-5.1); SODIUM LEVEL 139 MEQ/L (136-145); TOTAL PROTEIN 7.9 GM/DL (6.4-8.2); TRIGLYCERIDES LEVEL 207 MG/DL (<150)
[2022-05-04 20:17] LABS: HEMOGLOBIN A1c 7.4 %
== END ==
LOC: M PLALAB 13:03
PROVIDERS: ATTEND Family Medicine
DX: E11.69 Type 2 diabetes mellitus with other specified complication (principal)

== ENCOUNTER 2022-05-18 11:52 | Outpatient (CLI) | payer BC ==
[~2022-05-18] VITALS: Ht 175.3 cm; Wt 115.0 kg
[~2022-05-18 11:52] MED LIST changes: +ALBUTEROL SULFATE 2.5 MG/0.5 ML INH NEB SOLN INH PRN; +EPINEPHrine INJ 1 MG/ML 1ML AMP IM PRN; +diphenhydrAMINE 50MG/ML VIAL (J1200) IV PRN; +methylPREDNISolone 125MG 2ML VIAL IV PRN
[2022-05-18 12:16] VITALS: BP 145/72
[2022-05-18] MEDS ORDERED: NS 1,000 ML IV SCH (12:30)
[2022-05-18] MEDS ORDERED: FERRIC CARBOXYMALTOSE INJ 750 MG in NS 250 ML (>50kg) IV ONE ×3 (12:30)
[2022-05-18 13:29] VITALS: BP 106/58
== END 2022-05-18 13:25 | disposition home or self-care (01) ==
LOC: M INFU 11:52
PROVIDERS: ATTEND Family Medicine
DX: D50.9 Iron deficiency anemia, unspecified (principal); Z88.1 Allergy status to other antibiotic agents
CPT/HCPCS: 96365; J1439

== ENCOUNTER → 2022-05-31 | Outpatient (CLI) | payer BC ==
[~2022-05-31] MED LIST changes: -ALBUTEROL SULFATE 2.5 MG/0.5 ML INH NEB SOLN INH PRN; -EPINEPHrine INJ 1 MG/ML 1ML AMP IM PRN; +JARD1TAB3 PO; +LANTINJ4 SC; -diphenhydrAMINE 50MG/ML VIAL (J1200) IV PRN; -methylPREDNISolone 125MG 2ML VIAL IV PRN
== END ==
LOC: M LABSMTC 09:38
PROVIDERS: ATTEND Anesthesiology
DX: Z01.812 Encounter for preprocedural laboratory examination (principal); Z20.822 Contact with and (suspected) exposure to COVID-19

== ENCOUNTER → 2022-07-05 | Outpatient (CLI) | payer BC ==
[~2022-07-05] MED LIST changes: +BAYE81TA10 PO; +COLA100C5 PO
== END ==
LOC: M LABSMTC 10:05
PROVIDERS: ATTEND Anesthesiology
DX: Z01.812 Encounter for preprocedural laboratory examination (principal); Z20.822 Contact with and (suspected) exposure to COVID-19

== ENCOUNTER 2022-07-09 11:27 | Day surgery (SDC) | payer BC ==
[~2022-07-09] VITALS: Ht 182.9 cm; Wt 112.9 kg
[~2022-07-09 11:27] MED LIST changes: +NS 1,000 ML IV ONE
[2022-07-09] MEDS ORDERED: propofoL 200 MG/20 ML VIAL As Ordered ONE (12:07)
[2022-07-09] MEDS ORDERED: LIDOCAINE 2% 100MG/5ML SDV (FOR ANES.) As Ordered ONE (12:07)
[2022-07-09 13:58] VITALS: BP 164/77
[2022-07-09] MEDS ORDERED: LIDOCAINE VISCOUS 2% SOLN 15ML UDC PO ONE (14:20)
== END 2022-07-09 14:15 | disposition home or self-care (01) ==
LOC: M OPP 11:27
PROVIDERS: ATTEND Internal Medicine Gastroenterology
DX: I85.00 Esophageal varices without bleeding (principal); K74.60 Unspecified cirrhosis of liver; Z79.02 Long term (current) use of antithrombotics/antiplatelets; Z79.4 Long term (current) use of insulin; Z79.52 Long term (current) use of systemic steroids; Z79.899 Other long term (current) drug therapy; Z88.0 Allergy status to penicillin; Z88.1 Allergy status to other antibiotic agents; E11.40 Type 2 diabetes mellitus with diabetic neuropathy, unspecified; I10 Essential (primary) hypertension; J45.909 Unspecified asthma, uncomplicated; E78.5 Hyperlipidemia, unspecified; Z80.1 Family history of malignant neoplasm of trachea, bronchus and lung

== ENCOUNTER → 2022-08-06 | Outpatient (CLI) | payer BC ==
[~2022-08-06] MED LIST changes: -NS 1,000 ML IV ONE
== END ==
LOC: M RAD 08:08
PROVIDERS: ATTEND Physician Assistant Medical
DX: K74.60 Unspecified cirrhosis of liver (principal)

== ENCOUNTER → 2022-08-17 | Outpatient (CLI) | payer BC ==
[~2022-08-17] MED LIST changes: +E-Z-GAS II EFFERVESCENT PACKET (SODIUM BICARB./CITRIC ACID/SIMETHICONE) As Ordered ONE; +E-Z-HD 98% w/w 340GM SUSP BTL As Ordered ONE; +E-Z-PAQUE 96% w/w SUSP 176GM BTL As Ordered ONE
== END ==
LOC: M RAD 07:51
PROVIDERS: ATTEND Physician Assistant Medical
DX: R13.10 Dysphagia, unspecified (principal)

== ENCOUNTER → 2022-08-23 | Outpatient (CLI) | payer BC ==
[~2022-08-23] MED LIST changes: -E-Z-GAS II EFFERVESCENT PACKET (SODIUM BICARB./CITRIC ACID/SIMETHICONE) As Ordered ONE; -E-Z-HD 98% w/w 340GM SUSP BTL As Ordered ONE; -E-Z-PAQUE 96% w/w SUSP 176GM BTL As Ordered ONE
== END ==
LOC: M LABSMTC 10:07
PROVIDERS: ATTEND Anesthesiology
DX: Z01.812 Encounter for preprocedural laboratory examination (principal); Z11.52 Encounter for screening for COVID-19

== ENCOUNTER → 2022-09-13 | Outpatient (CLI) | payer BC | LOC: M LABSMTC 11:52 | PROVIDERS: ATTEND Anesthesiology | DX: Z01.812 Encounter for preprocedural laboratory examination (principal); Z20.822 Contact with and (suspected) exposure to COVID-19 ==

== ENCOUNTER 2022-09-16 11:59 | Day surgery (SDC) | payer BC ==
[~2022-09-16] VITALS: Ht 182.9 cm; Wt 112.9 kg
[~2022-09-16 11:59] MED LIST changes: +NS 1,000 ML IV ONE
[2022-09-16] MEDS ORDERED: LIDOCAINE 2% 100MG/5ML SDV (FOR ANES.) As Ordered ONE (14:02)
[2022-09-16] MEDS ORDERED: propofoL 200 MG/20 ML VIAL As Ordered ONE (14:02)
[2022-09-16 15:05] VITALS: BP 147/74
[2022-09-16] MEDS ORDERED: LIDOCAINE VISCOUS 2% SOLN 15ML UDC PO STA (15:13)
[2022-09-16] MEDS ORDERED: LIDOCAINE VISCOUS 2% SOLN 15ML UDC As Ordered ONE (15:20)
== END 2022-09-16 14:51 | disposition home or self-care (01) ==
LOC: M OPP 11:59
PROVIDERS: ATTEND Internal Medicine Gastroenterology
DX: I85.00 Esophageal varices without bleeding (principal); K31.89 Other diseases of stomach and duodenum; K76.6 Portal hypertension; I10 Essential (primary) hypertension; E78.5 Hyperlipidemia, unspecified; E11.40 Type 2 diabetes mellitus with diabetic neuropathy, unspecified; K76.0 Fatty (change of) liver, not elsewhere classified; M19.90 Unspecified osteoarthritis, unspecified site; J45.909 Unspecified asthma, uncomplicated; Z88.0 Allergy status to penicillin; Z88.1 Allergy status to other antibiotic agents; Z79.4 Long term (current) use of insulin; Z79.84 Long term (current) use of oral hypoglycemic drugs; Z79.899 Other long term (current) drug therapy

== ENCOUNTER → 2022-10-25 | Outpatient (CLI) | payer BC ==
[~2022-10-25] MED LIST changes: -NS 1,000 ML IV ONE
[2022-10-25 14:27] LABS: BASO % 0.6 % (0.0-1.0); EOS # 0.1 10^3/uL (0.0-0.5); EOS % 1.5 % (0.0-3.0); HEMATOCRIT 41.2 % (42.0-52.0); HEMOGLOBIN 13.1 g/dl (13.5-17.5); LYMPH # 1.2 10^3/uL (1.5-5.0); LYMPH % 25.4 % (24.0-44.0); MEAN CORPUSCULAR HEMOGLOBIN 28.7 pg (27.0-33.0); MEAN CORPUSCULAR HGB CONC 31.8 g/dl (32.0-36.5); MEAN CORPUSCULAR VOLUME 90.4 fl (80.0-96.0); MONO # 0.5 10^3/uL (0.0-0.8); MONO % 10.4 % (2.0-8.0); NEUTROPHILS # 2.9 10^3/uL (1.5-8.5); NEUTROPHILS % 61.5 % (36.0-66.0); PLATELET COUNT, AUTOMATED 127 10^3/uL (150-450); RED BLOOD COUNT 4.56 10^6/uL (4.30-6.10); WHITE BLOOD COUNT 4.7 10^3/uL (4.0-10.0)
[2022-10-25 14:36] LABS: HEMOGLOBIN A1c 7.3 % (4.0-6.0)
[2022-10-25 14:57] LABS: MAU/CREAT RATIO 19.4 MCG/MG (0.0-30.0)
[2022-10-25 15:00] LABS: ALBUMIN 3.3 G/DL (3.2-5.2); ALKALINE PHOSPHATASE 206 U/L (46-116); ALT/SGPT 76 U/L (7.0-40); AST/SGOT 75 U/L (<34); BILIRUBIN,TOTAL 0.7 MG/DL (0.3-1.2); BLOOD UREA NITROGEN 20 MG/DL (9-23); CARBON DIOXIDE LEVEL 31 MMOL/L (20-31); CHLORIDE LEVEL 103 MMOL/L (98-107); FERRITIN 21.9 NG/ML (10.5-307.3); GLOMERULAR FILTRATION RATE > 60.0 (>49); GLUCOSE, FASTING 144 MG/DL (74-106); MAGNESIUM LEVEL 2.1 MG/DL (1.8-2.4); POTASSIUM SERUM 4.1 MMOL/L (3.5-5.1); SODIUM LEVEL 136 MMOL/L (136-145); TOTAL PROTEIN 6.9 G/DL (5.7-8.2); VITAMIN B12 LEVEL 774 PG/ML (211-911)
== END ==
LOC: M LAB 13:20
PROVIDERS: ATTEND Family Medicine
DX: E11.69 Type 2 diabetes mellitus with other specified complication (principal)
CPT/HCPCS: 36415; 80053; 82043; 82607; 82728; 83036; 83735; 83880; 85025; G0103

== ENCOUNTER → 2022-12-16 | Outpatient (CLI) | payer BC ==
[2022-12-16 10:23] LABS: HEMATOCRIT 43.5 % (42.0-52.0); HEMOGLOBIN 13.9 g/dl (13.5-17.5); MEAN CORPUSCULAR HEMOGLOBIN 29.3 pg (27.0-33.0); MEAN CORPUSCULAR VOLUME 91.8 fl (80.0-96.0); PLATELET COUNT, AUTOMATED 131 10^3/uL (150-450); RED BLOOD COUNT 4.74 10^6/uL (4.30-6.10); WHITE BLOOD COUNT 5.1 10^3/uL (4.0-10.0)
[2022-12-16 11:32] LABS: ALBUMIN 3.4 G/DL (3.2-5.2); BILIRUBIN,DIRECT 0.1 MG/DL (<0.4); BILIRUBIN,TOTAL 0.4 MG/DL (0.3-1.2); TOTAL PROTEIN 6.9 G/DL (5.7-8.2)
== END ==
LOC: M LAB 09:23
PROVIDERS: ATTEND Physician Assistant Medical
DX: K74.60 Unspecified cirrhosis of liver (principal)

== ENCOUNTER → 2023-01-11 | Outpatient (CLI) | payer BC | LOC: M RAD 07:59 | PROVIDERS: ATTEND Physician Assistant Medical | DX: K74.60 Unspecified cirrhosis of liver (principal) ==

== ENCOUNTER → 2023-01-20 | Outpatient (CLI) | payer BC ==
[2023-01-20 15:59] LABS: BLOOD UREA NITROGEN 18 MG/DL (9-23); CREATININE FOR GFR 1.14 MG/DL (0.70-1.30); GLOMERULAR FILTRATION RATE > 60.0 (>49)
== END ==
LOC: M LAB 15:07
PROVIDERS: ATTEND Physician Assistant Medical
DX: K74.60 Unspecified cirrhosis of liver (principal); I85.00 Esophageal varices without bleeding

== ENCOUNTER → 2023-01-25 | Outpatient (CLI) | payer BC ==
[~2023-01-25] MED LIST changes: +PROHANCE 279.3MG/ML 15ML VIAL ONE; +PROHANCE 279.3MG/ML 5ML VIAL ONE
== END ==
LOC: M PLAIMG 09:05
PROVIDERS: ATTEND Physician Assistant Medical
DX: K74.60 Unspecified cirrhosis of liver (principal)
CPT/HCPCS: 74183; A9576

== ENCOUNTER → 2023-04-07 | Outpatient (CLI) | payer BC ==
[~2023-04-07] MED LIST changes: -PROHANCE 279.3MG/ML 15ML VIAL ONE; -PROHANCE 279.3MG/ML 5ML VIAL ONE
[2023-04-07 19:13] LABS: BASO % 0.6 % (0.0-1.0); EOS # 0.1 10^3/uL (0.0-0.5); EOS % 1.6 % (0.0-3.0); HEMATOCRIT 40.8 % (42.0-52.0); HEMOGLOBIN 13.3 g/dl (13.5-17.5); LYMPH # 1.4 10^3/uL (1.5-5.0); LYMPH % 27.4 % (24.0-44.0); MEAN CORPUSCULAR HGB CONC 32.6 g/dl (32.0-36.5); MEAN CORPUSCULAR VOLUME 88.9 fl (80.0-96.0); MONO # 0.5 10^3/uL (0.0-0.8); MONO % 10.8 % (2.0-8.0); NEUTROPHILS # 2.9 10^3/uL (1.5-8.5); PLATELET COUNT, AUTOMATED 128 10^3/uL (150-450); RED BLOOD COUNT 4.59 10^6/uL (4.30-6.10); WHITE BLOOD COUNT 4.9 10^3/uL (4.0-10.0)
[2023-04-07 20:00] LABS: ALBUMIN 3.6 G/DL (3.2-5.2); ALKALINE PHOSPHATASE 185 U/L (46-116); ALT/SGPT 75 U/L (7.0-40); AST/SGOT 87 U/L (<34); BILIRUBIN,TOTAL 0.9 MG/DL (0.3-1.2); BLOOD UREA NITROGEN 16 MG/DL (9-23); CALCIUM LEVEL 8.8 MG/DL (8.3-10.6); CARBON DIOXIDE LEVEL 28 MMOL/L (20-31); CHLORIDE LEVEL 103 MMOL/L (98-107); CHOLESTEROL LEVEL 153 MG/DL (<200); CHOLESTEROL RISK RATIO 3.95 (<5); GLOMERULAR FILTRATION RATE > 60.0 (>49); GLUCOSE, FASTING 88 MG/DL (74-106); HDL CHOLESTEROL 38.7 MG/DL (>40); LDL CHOLESTEROL 71.3 MG/DL (<100); NON-HDL-C 114.3 MG/DL; POTASSIUM SERUM 4.1 MMOL/L (3.5-5.1); SODIUM LEVEL 141 MMOL/L (136-145); TOTAL PROTEIN 7.4 G/DL (5.7-8.2); TRIGLYCERIDES LEVEL 215 MG/DL (<150)
[2023-04-07 20:02] LABS: FERRITIN 18.4 NG/ML (10.5-307.3); TOTAL 25(OH) VITAMIN D 67.4 NG/ML (20.0-100.0)
[2023-04-09 01:42] LABS: PTH INTACT 45.9 PG/ML (18.5-88.0)
== END ==
LOC: M PLALAB 15:12
PROVIDERS: ATTEND Family Medicine
DX: E11.42 Type 2 diabetes mellitus with diabetic polyneuropathy (principal); I50.32 Chronic diastolic (congestive) heart failure; D61.818 Other pancytopenia; E78.2 Mixed hyperlipidemia; D50.9 Iron deficiency anemia, unspecified; E55.9 Vitamin D deficiency, unspecified

== ENCOUNTER → 2023-07-27 | Outpatient (CLI) | payer BC ==
[2023-07-27 09:23] LABS: HEMATOCRIT 38.9 % (42.0-52.0); HEMOGLOBIN 12.6 g/dl (13.5-17.5); MEAN CORPUSCULAR HEMOGLOBIN 28.6 pg (27.0-33.0); MEAN CORPUSCULAR HGB CONC 32.4 g/dl (32.0-36.5); MEAN CORPUSCULAR VOLUME 88.2 fl (80.0-96.0); PLATELET COUNT, AUTOMATED 150 10^3/uL (150-450); RED BLOOD COUNT 4.41 10^6/uL (4.30-6.10); WHITE BLOOD COUNT 4.6 10^3/uL (4.0-10.0)
[2023-07-27 10:02] LABS: ALBUMIN 3.1 G/DL (3.2-5.2); BILIRUBIN,DIRECT 0.2 MG/DL (<0.4); BILIRUBIN,TOTAL 0.6 MG/DL (0.3-1.2); TOTAL PROTEIN 7.3 G/DL (5.7-8.2)
== END ==
LOC: M RAD 07:51
PROVIDERS: ATTEND Physician Assistant Medical
DX: K74.60 Unspecified cirrhosis of liver (principal); R19.4 Change in bowel habit

== ENCOUNTER → 2023-08-12 | Outpatient (REF) | payer BC | LOC: M SFHCPLAZ 13:43 | PROVIDERS: ATTEND Family Medicine | DX: Z53.9 Procedure and treatment not carried out, unspecified reason (principal) ==

== ENCOUNTER 2023-09-02 06:35 | Day surgery (SDC) | payer BC ==
[~2023-09-02] VITALS: Ht 182.9 cm; Wt 112.8 kg
[~2023-09-02 06:35] MED LIST changes: +FAMO1TAB11 PO; +FERR324T2 PO; +FURO20TA2 PO; +NORT50CA PO; +NS 1,000 ML IV ONE; +ROSU20TA61 PO
[2023-09-02] MEDS ORDERED: LIDOCAINE 2% 100MG/5ML SDV (FOR ANES.) As Ordered ONE (06:58)
[2023-09-02] MEDS ORDERED: propofoL 200 MG/20 ML VIAL As Ordered ONE ×2 (06:58→08:07)
[2023-09-02] MEDS ORDERED: fentaNYL 100 MCG/2 ML INJECTION As Ordered ONE (07:33)
[2023-09-02] MEDS ORDERED: ePHEDrine SULFATE 25 MG/5 ML(5MG/ML) SYRINGE As Ordered ONE (07:45)
[2023-09-02 08:12] VITALS: TEMP 97.9
[2023-09-02 08:40] VITALS: BP 147/82; O2SAT 94
[2023-09-02] MEDS ORDERED: LIDOCAINE VISCOUS 2% SOLN 15ML UDC As Ordered ONE (08:49)
== END 2023-09-02 09:00 | disposition home or self-care (01) ==
LOC: M OPP 06:35
PROVIDERS: ATTEND Internal Medicine Gastroenterology
DX: K57.30 Diverticulosis of large intestine without perforation or abscess without bleeding (principal); K64.8 Other hemorrhoids; K63.89 Other specified diseases of intestine; Z86.010 Personal history of colon polyps; K31.89 Other diseases of stomach and duodenum; K76.6 Portal hypertension; I85.00 Esophageal varices without bleeding; E11.9 Type 2 diabetes mellitus without complications; G47.9 Sleep disorder, unspecified; Z87.891 Personal history of nicotine dependence; Z79.02 Long term (current) use of antithrombotics/antiplatelets; Z79.4 Long term (current) use of insulin; Z79.51 Long term (current) use of inhaled steroids; Z79.891 Long term (current) use of opiate analgesic; Z79.899 Other long term (current) drug therapy; Z88.0 Allergy status to penicillin; Z88.1 Allergy status to other antibiotic agents
CPT/HCPCS: 43244; 45378; J3010

== ENCOUNTER → 2023-09-30 | Outpatient (CLI) | payer BC, MEDICARE ==
[~2023-09-30] MED LIST changes: -NS 1,000 ML IV ONE
== END ==
LOC: M RAD 10:36
PROVIDERS: ATTEND Family Medicine
DX: Z12.2 Encounter for screening for malignant neoplasm of respiratory organs (principal); Z87.891 Personal history of nicotine dependence; I70.0 Atherosclerosis of aorta; I25.10 Atherosclerotic heart disease of native coronary artery without angina pectoris; K74.60 Unspecified cirrhosis of liver; R16.1 Splenomegaly, not elsewhere classified

== ENCOUNTER 2023-10-14 12:41 | Day surgery (SDC) | payer MEDICARE ==
[~2023-10-14] VITALS: Ht 182.9 cm; Wt 116.4 kg
[2023-10-14] MEDS: NS 1,000 ML IV ONE (13:16)
[2023-10-14] MEDS ORDERED: fentaNYL 100 MCG/2 ML INJECTION As Ordered ONE (13:54)
[2023-10-14] MEDS ORDERED: propofoL 200 MG/20 ML VIAL As Ordered ONE (13:56)
[2023-10-14] MEDS ORDERED: LIDOCAINE 2% 100MG/5ML SDV (FOR ANES.) As Ordered ONE (13:56)
[2023-10-14 15:16] VITALS: TEMP 98.5
[2023-10-14 15:35] VITALS: BP 150/83; O2SAT 93
== END 2023-10-14 15:38 | disposition home or self-care (01) ==
LOC: M OPP 12:41
PROVIDERS: ATTEND Internal Medicine Gastroenterology
DX: I85.01 Esophageal varices with bleeding (principal); Z79.02 Long term (current) use of antithrombotics/antiplatelets; Z79.4 Long term (current) use of insulin; Z79.51 Long term (current) use of inhaled steroids; Z79.891 Long term (current) use of opiate analgesic; Z79.899 Other long term (current) drug therapy; Z88.0 Allergy status to penicillin; Z88.1 Allergy status to other antibiotic agents
CPT/HCPCS: 43244; J3010

== ENCOUNTER → 2023-11-30 | Outpatient (REF) | payer MEDICARE ==
[2023-11-30 17:48] LABS: BASO % 0.3 % (0.0-1.0); EOS # 0.1 10^3/uL (0.0-0.5); EOS % 1.2 % (0.0-3.0); HEMATOCRIT 32.4 % (42.0-52.0); HEMOGLOBIN 10.2 g/dl (13.5-17.5); LYMPH # 1.4 10^3/uL (1.5-5.0); LYMPH % 22.5 % (24.0-44.0); MEAN CORPUSCULAR HEMOGLOBIN 26.9 pg (27.0-33.0); MEAN CORPUSCULAR HGB CONC 31.5 g/dl (32.0-36.5); MEAN CORPUSCULAR VOLUME 85.5 fl (80.0-96.0); MONO # 0.9 10^3/uL (0.0-0.8); MONO % 15.1 % (2.0-8.0); NEUTROPHILS # 3.7 10^3/uL (1.5-8.5); NEUTROPHILS % 60.7 % (36.0-66.0); PLATELET COUNT, AUTOMATED 174 10^3/uL (150-450); RED BLOOD COUNT 3.79 10^6/uL (4.30-6.10)
[2023-11-30 17:52] LABS: ERYTHROCYTE SEDIMENTATION RATE 80 mm/hr (0-20)
[2023-11-30 18:21] LABS: ALKALINE PHOSPHATASE 237 U/L (46-116); ALT/SGPT 53 U/L (7.0-40); AST/SGOT 70 U/L (<34); BILIRUBIN,TOTAL 0.7 MG/DL (0.3-1.2); BLOOD UREA NITROGEN 18 MG/DL (9-23); CALCIUM LEVEL 8.6 MG/DL (8.3-10.6); CARBON DIOXIDE LEVEL 31 MMOL/L (20-31); CHLORIDE LEVEL 100 MMOL/L (98-107); CREATININE FOR GFR 1.02 MG/DL (0.70-1.30); GLOMERULAR FILTRATION RATE > 60.0 (>49); GLUCOSE, FASTING 172 MG/DL (74-106); POTASSIUM SERUM 4.5 MMOL/L (3.5-5.1); SODIUM LEVEL 134 MMOL/L (136-145); TOTAL PROTEIN 6.9 G/DL (5.7-8.2)
== END ==
LOC: M LABDRAWP 16:54
PROVIDERS: ATTEND Family Medicine
DX: M79.605 Pain in left leg (principal); M79.89 Other specified soft tissue disorders

== ENCOUNTER → 2023-12-01 | Outpatient (CLI) | payer MEDICARE | LOC: M WHC 14:30 | PROVIDERS: ATTEND Family Medicine | DX: M79.605 Pain in left leg (principal); M79.89 Other specified soft tissue disorders ==

== ENCOUNTER → 2023-12-01 | Outpatient (CLI) | payer MEDICARE | LOC: M PLALAB 16:11 | PROVIDERS: ATTEND Family Medicine | DX: L03.116 Cellulitis of left lower limb (principal) ==

== ENCOUNTER → 2023-12-09 | Outpatient (REF) | payer MEDICARE ==
[2023-12-09 18:28] LABS: ALKALINE PHOSPHATASE 283 U/L (46-116); ALT/SGPT 68 U/L (7.0-40); AST/SGOT 102 U/L (<34); BILIRUBIN,TOTAL 0.6 MG/DL (0.3-1.2); BLOOD UREA NITROGEN 20 MG/DL (9-23); CALCIUM LEVEL 9.1 MG/DL (8.3-10.6); CARBON DIOXIDE LEVEL 30 MMOL/L (20-31); CHLORIDE LEVEL 100 MMOL/L (98-107); CREATININE FOR GFR 1.04 MG/DL (0.70-1.30); GLOMERULAR FILTRATION RATE > 60.0 (>49); GLUCOSE, FASTING 194 MG/DL (74-106); POTASSIUM SERUM 4.1 MMOL/L (3.5-5.1); SODIUM LEVEL 134 MMOL/L (136-145); TOTAL PROTEIN 6.9 G/DL (5.7-8.2)
== END ==
LOC: M PLALAB 17:19
PROVIDERS: ATTEND Family Medicine
DX: M79.89 Other specified soft tissue disorders (principal)

== ENCOUNTER → 2024-01-20 | Outpatient (CLI) | payer MEDICARE ==
[2024-01-20 15:57] LABS: ALBUMIN 2.7 G/DL (3.2-5.2); BILIRUBIN,DIRECT 0.2 MG/DL (<0.4); BILIRUBIN,TOTAL 0.6 MG/DL (0.3-1.2); TOTAL PROTEIN 6.5 G/DL (5.7-8.2)
== END ==
LOC: M PLALAB 14:00
PROVIDERS: ATTEND Physician Assistant Medical
DX: K74.60 Unspecified cirrhosis of liver (principal)

== ENCOUNTER → 2024-01-20 | Outpatient (REF) | payer MEDICARE | LOC: M SFHCPLAZ 16:13 | PROVIDERS: ATTEND Family Medicine | DX: I50.32 Chronic diastolic (congestive) heart failure (principal); D50.9 Iron deficiency anemia, unspecified; E78.2 Mixed hyperlipidemia; E11.69 Type 2 diabetes mellitus with other specified complication; Z12.5 Encounter for screening for malignant neoplasm of prostate ==

== ENCOUNTER → 2024-01-20 | Outpatient (CLI) | payer MEDICARE ==
[2024-01-20 16:01] LABS: ALBUMIN 2.7 G/DL (3.2-5.2); ALKALINE PHOSPHATASE 233 U/L (46-116); ALT/SGPT 51 U/L (7.0-40); AST/SGOT 90 U/L (<34); BILIRUBIN,TOTAL 0.6 MG/DL (0.3-1.2); BLOOD UREA NITROGEN 23 MG/DL (9-23); CALCIUM LEVEL 8.1 MG/DL (8.3-10.6); CARBON DIOXIDE LEVEL 29 MMOL/L (20-31); CHLORIDE LEVEL 101 MMOL/L (98-107); CHOLESTEROL LEVEL 122 MG/DL (<200); CHOLESTEROL RISK RATIO 3.54 (<5); FREE T4 0.81 NG/DL (0.89-1.76); GLOMERULAR FILTRATION RATE > 60.0 (>49); GLUCOSE, FASTING 135 MG/DL (74-106); HDL CHOLESTEROL 34.4 MG/DL (>40); LDL CHOLESTEROL 56.6 MG/DL (<100); NON-HDL-C 87.6 MG/DL; SODIUM LEVEL 136 MMOL/L (136-145); THYROID STIMULATING HORMONE 2.304 uIU/ML (0.55-4.78); TOTAL PROTEIN 6.4 G/DL (5.7-8.2); TRIGLYCERIDES LEVEL 155 MG/DL (<150)
[2024-01-20 16:03] LABS: VITAMIN B12 LEVEL 1558 PG/ML (211-911)
[2024-01-20 16:13] LABS: HEMOGLOBIN A1c 8.8 % (4.0-6.0)
== END ==
LOC: M PLALAB 13:56
PROVIDERS: ATTEND Family Medicine
DX: E11.69 Type 2 diabetes mellitus with other specified complication (principal); I50.32 Chronic diastolic (congestive) heart failure; E78.2 Mixed hyperlipidemia; D50.9 Iron deficiency anemia, unspecified; Z12.5 Encounter for screening for malignant neoplasm of prostate
CPT/HCPCS: 36415; 80053; 80061; 82607; 82728; 83036; 83880; 84439; 84443; G0103

== ENCOUNTER → 2024-02-02 | Outpatient (CLI) | payer MEDICARE ==
[~2024-02-02] MED LIST changes: +FAMO20TA PO; +NEUR600T PO; +SPIR50TA4 PO; +VENTAER INH
== END ==
LOC: M RAD 07:08
PROVIDERS: ATTEND Physician Assistant Medical
DX: K74.60 Unspecified cirrhosis of liver (principal); K76.6 Portal hypertension; R18.8 Other ascites

== ENCOUNTER → 2024-02-02 | Outpatient (REF) | payer MEDICARE ==
[2024-02-02 17:47] LABS: EOS # 0.1 10^3/uL (0.0-0.5); EOS % 2.4 % (0.0-3.0); HEMATOCRIT 24.4 % (42.0-52.0); HEMOGLOBIN 7.3 g/dl (13.5-17.5); LYMPH # 1.1 10^3/uL (1.5-5.0); LYMPH % 25.4 % (24.0-44.0); MEAN CORPUSCULAR HEMOGLOBIN 23.5 pg (27.0-33.0); MEAN CORPUSCULAR HGB CONC 29.9 g/dl (32.0-36.5); MEAN CORPUSCULAR VOLUME 78.7 fl (80.0-96.0); MONO # 0.6 10^3/uL (0.0-0.8); NEUTROPHILS # 2.3 10^3/uL (1.5-8.5); PLATELET COUNT, AUTOMATED 198 10^3/uL (150-450); WHITE BLOOD COUNT 4.1 10^3/uL (4.0-10.0)
[2024-02-02 18:11] LABS: ALBUMIN 2.8 G/DL (3.2-5.2); ALKALINE PHOSPHATASE 224 U/L (46-116); ALT/SGPT 42 U/L (7.0-40); AST/SGOT 54 U/L (<34); BILIRUBIN,TOTAL 0.5 MG/DL (0.3-1.2); BLOOD UREA NITROGEN 21 MG/DL (9-23); CALCIUM LEVEL 8.6 MG/DL (8.3-10.6); CARBON DIOXIDE LEVEL 26 MMOL/L (20-31); CHLORIDE LEVEL 102 MMOL/L (98-107); CREATININE FOR GFR 1.21 MG/DL (0.70-1.30); GLOMERULAR FILTRATION RATE > 60.0 (>49); GLUCOSE, FASTING 148 MG/DL (74-106); POTASSIUM SERUM 4.5 MMOL/L (3.5-5.1); SODIUM LEVEL 134 MMOL/L (136-145); TOTAL PROTEIN 7.1 G/DL (5.7-8.2)
[2024-02-02 18:18] LABS: INR 1.29; PARTIAL THROMBOPLASTIN TIME 34.1 SECONDS (24.8-34.2); PROTHROMBIN TIME 15.7 SECONDS (12.5-14.5)
== END ==
LOC: M LABDRAWP 17:17
PROVIDERS: ATTEND Family Medicine
DX: I50.32 Chronic diastolic (congestive) heart failure (principal); E78.2 Mixed hyperlipidemia

== ENCOUNTER 2024-02-03 14:01 | Inpatient (IN) | payer MEDICARE ==
[~2024-02-03] VITALS: Ht 182.9 cm; Wt 117.5 kg
[2024-02-03] VITALS (10 sets, daily range): BP systolic 123–170; BP diastolic 58–81; TEMP 97.3–98.1; O2SAT 96–100
[~2024-02-03 14:01] MED LIST changes: -FAMO20TA PO; -NEUR600T PO; -SPIR50TA4 PO; -VENTAER INH
[2024-02-03 14:58] LABS: BASO % 0.4 % (0.0-1.0); EOS % 0.9 % (0.0-3.0); HEMATOCRIT 23.7 % (42.0-52.0); HEMOGLOBIN 7.2 g/dl (13.5-17.5); LYMPH % 22.9 % (24.0-44.0); MEAN CORPUSCULAR HEMOGLOBIN 23.5 pg (27.0-33.0); MEAN CORPUSCULAR HGB CONC 30.4 g/dl (32.0-36.5); MEAN CORPUSCULAR VOLUME 77.5 fl (80.0-96.0); MONO # 0.6 10^3/uL (0.0-0.8); MONO % 14.3 % (2.0-8.0); NEUTROPHILS # 2.7 10^3/uL (1.5-8.5); NEUTROPHILS % 61.1 % (36.0-66.0); PLATELET COUNT, AUTOMATED 214 10^3/uL (150-450); RED BLOOD COUNT 3.06 10^6/uL (4.30-6.10); WHITE BLOOD COUNT 4.5 10^3/uL (4.0-10.0)
[2024-02-03 15:25] LABS: LIPASE 94 U/L (12-53)
[2024-02-03 15:27] LABS: ALBUMIN 2.8 G/DL (3.2-5.2); ALKALINE PHOSPHATASE 213 U/L (46-116); ALT/SGPT 43 U/L (7.0-40); AST/SGOT 77 U/L (<34); BILIRUBIN,DIRECT 0.2 MG/DL (<0.4); BILIRUBIN,TOTAL 0.5 MG/DL (0.3-1.2); BLOOD UREA NITROGEN 21 MG/DL (9-23); CALCIUM LEVEL 8.1 MG/DL (8.3-10.6); CARBON DIOXIDE LEVEL 24 MMOL/L (20-31); CHLORIDE LEVEL 105 MMOL/L (98-107); CREATININE FOR GFR 1.18 MG/DL (0.70-1.30); GLOMERULAR FILTRATION RATE > 60.0 (>49); GLUCOSE, FASTING 218 MG/DL (74-106); POTASSIUM SERUM 5.2 MMOL/L (3.5-5.1); SODIUM LEVEL 136 MMOL/L (136-145); TOTAL PROTEIN 7.1 G/DL (5.7-8.2)
[2024-02-03 15:33] LABS: IRON (FE) 8 UG/DL (65-175); PERCENT SATURATION 2.1 % (19.7-50.0); TOTAL IRON BINDING CAPACITY 385 UG/DL (250-425)
[2024-02-03] MEDS: LACTULOSE 20GM/30ML SYRUP UDC PO ONE (16:30)
[2024-02-03] MEDS: OCTREOTIDE ACETATE 100MCG/ML VIAL **IV ADMINISTRATION ONLY IV ONE (17:30)
[2024-02-03] MEDS ORDERED: ACETAMINOPHEN TAB 650MG DOSE (2X325MG) PO PRN (17:30)
[2024-02-03] MEDS ORDERED: GLUCOSE 4 GM CHEW PO PRN (17:35)
[2024-02-03] MEDS ORDERED: GLUCAGON INJ 1MG VIAL SC PRN (17:35)
[2024-02-03] MEDS ORDERED: DEXTROSE 50% 50ML SYRINGE IV PRN (17:35)
[2024-02-03] MEDS: INSULIN LISPRO (NovoLOG) PER UNIT SC SCH (17:51)
[2024-02-03] MEDS ORDERED: VENTAER INH (18:44)
[2024-02-03] MEDS ORDERED: FAMO20TA PO (18:44)
[2024-02-03] MEDS ORDERED: NEUR600T PO (18:44)
[2024-02-03] MEDS ORDERED: SPIR50TA4 PO (18:44)
[2024-02-03] MEDS ORDERED: HOME MED LIST COMPLETE! XX SCH (18:45)
[2024-02-03 18:59] LABS: INR 1.29; PARTIAL THROMBOPLASTIN TIME 31.8 SECONDS (24.8-34.2); PROTHROMBIN TIME 15.7 SECONDS (12.5-14.5)
[2024-02-03] MEDS ORDERED: propofoL 200 MG/20 ML VIAL As Ordered ONE (20:23)
[2024-02-03] MEDS ORDERED: LIDOCAINE 2% 100MG/5ML SDV (FOR ANES.) As Ordered ONE (20:23)
[2024-02-03] MEDS: PANTOPRAZOLE 40MG VIAL IV SCH (21:00)
[2024-02-03] MEDS: OCTREOTIDE ACETATE 1,200 MCG in NS 238.8 ML IV SCH (21:00)
[2024-02-03] MEDS ORDERED: fentaNYL 100 MCG/2 ML INJECTION As Ordered ONE (21:10)
[2024-02-04] VITALS (14 sets, daily range): BP systolic 101–155; BP diastolic 51–79; TEMP 97.5–97.9; O2SAT 92–97
[2024-02-04] MEDS: LIDOCAINE VISCOUS 2% SOLN 15ML UDC MT PRN (01:00)
[2024-02-04 01:25] LABS: HEMATOCRIT 25.4 % (42.0-52.0); HEMOGLOBIN 7.9 g/dl (13.5-17.5); MEAN CORPUSCULAR HGB CONC 31.1 g/dl (32.0-36.5); MEAN CORPUSCULAR VOLUME 77.2 fl (80.0-96.0); PLATELET COUNT, AUTOMATED 174 10^3/uL (150-450); RED BLOOD COUNT 3.29 10^6/uL (4.30-6.10); WHITE BLOOD COUNT 3.6 10^3/uL (4.0-10.0)
[2024-02-04 08:23] LABS: HEMATOCRIT 28.2 % (42.0-52.0); HEMOGLOBIN 8.6 g/dl (13.5-17.5); MEAN CORPUSCULAR HEMOGLOBIN 24.1 pg (27.0-33.0); MEAN CORPUSCULAR HGB CONC 30.5 g/dl (32.0-36.5); PLATELET COUNT, AUTOMATED 170 10^3/uL (150-450); RED BLOOD COUNT 3.57 10^6/uL (4.30-6.10); WHITE BLOOD COUNT 3.1 10^3/uL (4.0-10.0)
[2024-02-04 09:03] LABS: ALBUMIN 2.6 G/DL (3.2-5.2); ALKALINE PHOSPHATASE 196 U/L (46-116); ALT/SGPT 29 U/L (7.0-40); AST/SGOT 59 U/L (<34); BILIRUBIN,TOTAL 1.5 MG/DL (0.3-1.2); BLOOD UREA NITROGEN 15 MG/DL (9-23); CALCIUM LEVEL 8.5 MG/DL (8.3-10.6); CARBON DIOXIDE LEVEL 25 MMOL/L (20-31); CHLORIDE LEVEL 107 MMOL/L (98-107); CREATININE FOR GFR 0.95 MG/DL (0.70-1.30); GLOMERULAR FILTRATION RATE > 60.0 (>49); GLUCOSE, FASTING 127 MG/DL (74-106); POTASSIUM SERUM 4.4 MMOL/L (3.5-5.1); SODIUM LEVEL 137 MMOL/L (136-145); TOTAL PROTEIN 6.6 G/DL (5.7-8.2)
[2024-02-04] MEDS: OCTREOTIDE ACETATE 1,200 MCG in NS 238.8 ML IV SCH (09:45)
[2024-02-04] MEDS ORDERED: GLUCOSE 4 GM CHEW PO PRN (11:45)
[2024-02-04] MEDS ORDERED: DEXTROSE 50% 50ML SYRINGE IV PRN (11:45)
[2024-02-04] MEDS ORDERED: GLUCAGON INJ 1MG VIAL SC PRN (11:45)
[2024-02-04] MEDS: INSULIN LISPRO (NovoLOG) PER UNIT SC SCH ×2 (12:34→20:50)
[2024-02-04] MEDS: IRON SUCROSE 200 MG in NS 100 ML IV ONE (18:11)
[2024-02-04] MEDS: LACTULOSE 20GM/30ML SYRUP UDC PO SCH (18:11)
[2024-02-05 05:31] VITALS: BP 108/52; TEMP 97.7; O2SAT 97
[2024-02-05 06:00] LABS: HEMATOCRIT 28.9 % (42.0-52.0); HEMOGLOBIN 8.9 g/dl (13.5-17.5); MEAN CORPUSCULAR HEMOGLOBIN 24.5 pg (27.0-33.0); MEAN CORPUSCULAR HGB CONC 30.8 g/dl (32.0-36.5); MEAN CORPUSCULAR VOLUME 79.6 fl (80.0-96.0); PLATELET COUNT, AUTOMATED 177 10^3/uL (150-450); RED BLOOD COUNT 3.63 10^6/uL (4.30-6.10); WHITE BLOOD COUNT 4.1 10^3/uL (4.0-10.0)
[2024-02-05 06:09] LABS: ALBUMIN 2.6 G/DL (3.2-5.2); ALKALINE PHOSPHATASE 198 U/L (46-116); ALT/SGPT 47 U/L (7.0-40); AST/SGOT 83 U/L (<34); BILIRUBIN,TOTAL 1.3 MG/DL (0.3-1.2); BLOOD UREA NITROGEN 11 MG/DL (9-23); CALCIUM LEVEL 8.5 MG/DL (8.3-10.6); CARBON DIOXIDE LEVEL 25 MMOL/L (20-31); CHLORIDE LEVEL 106 MMOL/L (98-107); CREATININE FOR GFR 0.87 MG/DL (0.70-1.30); GLOMERULAR FILTRATION RATE > 60.0 (>49); GLUCOSE, FASTING 143 MG/DL (74-106); POTASSIUM SERUM 4.3 MMOL/L (3.5-5.1); SODIUM LEVEL 139 MMOL/L (136-145); TOTAL PROTEIN 6.7 G/DL (5.7-8.2)
[2024-02-05] MEDS ORDERED: ALBUTEROL 90 MCG/ACT 8GM HFA INHALER INH PRN (07:25)
[2024-02-05] MEDS: GABAPENTIN 300 MG CAP PO SCH (08:43)
[2024-02-05] MEDS: FAMOTIDINE 20 MG TAB PO SCH (08:43)
[2024-02-05] MEDS: ROSUVASTATIN 10 MG TAB (CRESTOR) PO SCH (08:43)
[2024-02-05] MEDS: SITagliptin 50 MG TAB (JANUVIA) PO SCH (08:44)
[2024-02-05] MEDS: SPIRONOLACTONE 50 MG TAB PO SCH (08:44)
[2024-02-05] MEDS: FUROSEMIDE 20 MG TAB PO SCH (08:44)
[2024-02-05] MEDS: MAGNESIUM OXIDE 400MG TAB (MAG-OX) PO SCH (08:44)
[2024-02-05] MEDS: NORTRIPTYLINE 25 MG CAP PO SCH (10:06)
[2024-02-05] MEDS: IRON SUCROSE 200 MG in NS 100 ML IV ONE (11:36)
[2024-02-05] MEDS ORDERED: VITAMIN D 1,000 INTERNATIONAL UNITS TABLET PO SCH (21:00)
[2024-02-05] MEDS ORDERED: NADOLOL 20MG TABLET PO SCH (21:00)
[2024-02-05] MEDS ORDERED: LEVEMIR (INSULIN DETEMIR) 1 UNITS/0.01ML SC SCH (21:00)
[2024-02-05] MEDS ORDERED: GABAPENTIN 300 MG CAP PO SCH (21:00)
== END 2024-02-05 13:35 | disposition home or self-care (01) | DRG 987 ==
LOC: M ED 14:01 → M ED INP 17:27 → M MSPAV 18:45
PROVIDERS: ADMIT Internal Medicine; ATTEND Internal Medicine
PROC: 0DV64CZ Restriction of Stomach with Extraluminal Device, Percutaneous Endoscopic Approach (ICD-10-PCS; 2024-02-03)
PROC: 30233N1 Transfusion of Nonautologous Red Blood Cells into Peripheral Vein, Percutaneous Approach (ICD-10-PCS; principal; 2024-02-03 18:00)
DX: D62 Acute posthemorrhagic anemia (principal); I85.11 Secondary esophageal varices with bleeding; K76.6 Portal hypertension; I10 Essential (primary) hypertension; E78.5 Hyperlipidemia, unspecified; E11.51 Type 2 diabetes mellitus with diabetic peripheral angiopathy without gangrene; E66.9 Obesity, unspecified; M51.36 Other intervertebral disc degeneration, lumbar region; K74.60 Unspecified cirrhosis of liver; K75.81 Nonalcoholic steatohepatitis (NASH); M50.30 Other cervical disc degeneration, unspecified cervical region; Z88.0 Allergy status to penicillin; Z88.8 Allergy status to other drugs, medicaments and biological substances; Z79.899 Other long term (current) drug therapy; Z79.4 Long term (current) use of insulin

== ENCOUNTER → 2024-02-10 | Outpatient (REF) | payer MEDICARE ==
[~2024-02-10] MED LIST changes: +FAMO20TA PO; +NEUR600T PO; +SPIR50TA4 PO; +VENTAER INH
[2024-02-10 19:55] LABS: BASO % 0.7 % (0.0-1.0); EOS # 0.1 10^3/uL (0.0-0.5); EOS % 1.7 % (0.0-3.0); HEMATOCRIT 34.9 % (42.0-52.0); HEMOGLOBIN 10.3 g/dl (13.5-17.5); LYMPH # 1.3 10^3/uL (1.5-5.0); LYMPH % 22.2 % (24.0-44.0); MEAN CORPUSCULAR HEMOGLOBIN 24.9 pg (27.0-33.0); MEAN CORPUSCULAR HGB CONC 29.5 g/dl (32.0-36.5); MEAN CORPUSCULAR VOLUME 84.3 fl (80.0-96.0); MONO # 0.8 10^3/uL (0.0-0.8); MONO % 13.1 % (2.0-8.0); NEUTROPHILS # 3.5 10^3/uL (1.5-8.5); NEUTROPHILS % 61.8 % (36.0-66.0); PLATELET COUNT, AUTOMATED 171 10^3/uL (150-450); RED BLOOD COUNT 4.14 10^6/uL (4.30-6.10); WHITE BLOOD COUNT 5.7 10^3/uL (4.0-10.0)
[2024-02-10 20:16] LABS: ALBUMIN 2.8 G/DL (3.2-5.2); ALKALINE PHOSPHATASE 261 U/L (46-116); ALT/SGPT 48 U/L (7.0-40); AST/SGOT 65 U/L (<34); BILIRUBIN,TOTAL 0.8 MG/DL (0.3-1.2); BLOOD UREA NITROGEN 17 MG/DL (9-23); CARBON DIOXIDE LEVEL 23 MMOL/L (20-31); CHLORIDE LEVEL 106 MMOL/L (98-107); CREATININE FOR GFR 0.95 MG/DL (0.70-1.30); GLOMERULAR FILTRATION RATE > 60.0 (>49); GLUCOSE, FASTING 229 MG/DL (74-106); POTASSIUM SERUM 5.7 MMOL/L (3.5-5.1); SODIUM LEVEL 137 MMOL/L (136-145); TOTAL PROTEIN 7.4 G/DL (5.7-8.2)
== END ==
LOC: M LABDRAWP 17:24
PROVIDERS: ATTEND Physician Assistant
DX: R74.01 Elevation of levels of liver transaminase levels (principal); R79.89 Other specified abnormal findings of blood chemistry; I85.01 Esophageal varices with bleeding

== ENCOUNTER 2024-02-15 07:55 | Outpatient (CLI) | payer MEDICARE ==
[~2024-02-15] VITALS: Ht 182.9 cm; Wt 115.5 kg
[~2024-02-15 07:55] MED LIST changes: +ALBUTEROL SULFATE 2.5MG/0.5ML INH NEB SOLN INH PRN; +EPINEPHrine INJ 1 MG/ML 1ML AMP IM PRN; +diphenhydrAMINE 50MG/ML VIAL IV PRN; +methylPREDNISolone 125MG 2ML VIAL IV PRN
[2024-02-15] MEDS ORDERED: NS 1,000 ML IV SCH (08:00)
[2024-02-15 08:10] VITALS: BP 125/58; O2SAT 97
[2024-02-15] MEDS: IRON SUCROSE 500 MG in NS 250 ML OVER 4 HRS IV ONE (08:51)
[2024-02-15 10:00] VITALS: BP 130/68; O2SAT 98
[2024-02-15 11:00] VITALS: BP 123/64; O2SAT 99
[2024-02-15 12:00] VITALS: BP 147/68; O2SAT 100
[2024-02-15 13:00] VITALS: BP 140/75; O2SAT 100
== END 2024-02-15 13:30 ==
LOC: M INFU 07:55
PROVIDERS: ATTEND Family Medicine
DX: D50.9 Iron deficiency anemia, unspecified (principal); Z88.0 Allergy status to penicillin; Z88.1 Allergy status to other antibiotic agents
CPT/HCPCS: 96365; 96366; J1756

== ENCOUNTER → 2024-02-20 | Outpatient (CLI) | payer MEDICARE ==
[~2024-02-20] MED LIST changes: -ALBUTEROL SULFATE 2.5MG/0.5ML INH NEB SOLN INH PRN; -EPINEPHrine INJ 1 MG/ML 1ML AMP IM PRN; +GASTROGRAFIN SOLUTION 30ML ONE; +ISOVUE-370 76% 100ML VIAL ONE; -diphenhydrAMINE 50MG/ML VIAL IV PRN; -methylPREDNISolone 125MG 2ML VIAL IV PRN
== END ==
LOC: M PLAIMG 08:15
PROVIDERS: ATTEND Family Medicine
DX: R59.0 Localized enlarged lymph nodes (principal); K74.60 Unspecified cirrhosis of liver
CPT/HCPCS: 74178; Q9963; Q9967

== ENCOUNTER → 2024-02-22 | Outpatient (CLI) | payer MEDICARE ==
[~2024-02-22] MED LIST changes: -GASTROGRAFIN SOLUTION 30ML ONE; -ISOVUE-370 76% 100ML VIAL ONE
== END ==
LOC: M SLEEP HO 11:30
PROVIDERS: ATTEND Family Medicine
DX: G47.33 Obstructive sleep apnea (adult) (pediatric) (principal)

== ENCOUNTER 2024-03-01 07:31 | Day surgery (SDC) | payer MEDICARE ==
[~2024-03-01] VITALS: Ht 182.9 cm; Wt 109.0 kg
[2024-03-01] MEDS: NS 1,000 ML IV ONE (08:16)
[2024-03-01] MEDS ORDERED: fentaNYL 100 MCG/2 ML INJECTION As Ordered ONE (09:17)
[2024-03-01] MEDS ORDERED: LIDOCAINE 2% 100MG/5ML SDV (FOR ANES.) As Ordered ONE (09:23)
[2024-03-01] MEDS ORDERED: propofoL 200 MG/20 ML VIAL As Ordered ONE (09:23)
[2024-03-01 10:17] VITALS: TEMP 97
[2024-03-01] MEDS: LIDOCAINE VISCOUS 2% SOLN 15ML UDC PO ONE (10:25)
[2024-03-01] MEDS ORDERED: LIDOCAINE VISCOUS 2% SOLN 15ML UDC As Ordered ONE (10:32)
[2024-03-01 10:42] VITALS: BP 155/75; O2SAT 94
== END 2024-03-01 10:48 | disposition home or self-care (01) ==
LOC: M OPP 07:31
PROVIDERS: ATTEND Internal Medicine Gastroenterology
DX: K31.89 Other diseases of stomach and duodenum (principal); K76.6 Portal hypertension; I85.00 Esophageal varices without bleeding; E11.9 Type 2 diabetes mellitus without complications; G47.9 Sleep disorder, unspecified; Z79.4 Long term (current) use of insulin; Z79.891 Long term (current) use of opiate analgesic; Z79.899 Other long term (current) drug therapy; Z88.0 Allergy status to penicillin; Z88.1 Allergy status to other antibiotic agents
CPT/HCPCS: 43244; J3010

== ENCOUNTER 2024-03-06 09:10 | Outpatient (CLI) | payer MEDICARE ==
[~2024-03-06] VITALS: Ht 182.9 cm; Wt 110.0 kg
[2024-03-06 09:05] VITALS: BP 123/66; O2SAT 96
[~2024-03-06 09:10] MED LIST changes: +ALBUTEROL SULFATE 2.5MG/0.5ML INH NEB SOLN INH PRN; +EPINEPHrine INJ 1 MG/ML 1ML AMP IM PRN; +IRON SUCROSE 500 MG in NS 250 ML OVER 4 HRS IV ONE; +NS 1,000 ML IV SCH; +diphenhydrAMINE 50MG/ML VIAL IV PRN; +methylPREDNISolone 125MG 2ML VIAL IV PRN
[2024-03-06] MEDS: IRON SUCROSE 500 MG in NS 250 ML OVER 4 HRS IV ONE (09:23)
[2024-03-06 10:30] VITALS: BP 128/68; O2SAT 95
[2024-03-06 11:30] VITALS: BP 121/67; O2SAT 98
[2024-03-06 12:30] VITALS: BP 126/74; O2SAT 97
[2024-03-06 13:20] VITALS: BP 148/72; O2SAT 98
== END 2024-03-06 13:25 ==
LOC: M INFU 09:10
PROVIDERS: ATTEND Family Medicine
DX: D50.9 Iron deficiency anemia, unspecified (principal); Z88.0 Allergy status to penicillin; Z88.1 Allergy status to other antibiotic agents
CPT/HCPCS: 96365; 96366; J1756

== ENCOUNTER → 2024-03-20 | Outpatient (CLI) | payer MEDICARE ==
[~2024-03-20] MED LIST changes: -ALBUTEROL SULFATE 2.5MG/0.5ML INH NEB SOLN INH PRN; -EPINEPHrine INJ 1 MG/ML 1ML AMP IM PRN; -IRON SUCROSE 500 MG in NS 250 ML OVER 4 HRS IV ONE; -NS 1,000 ML IV SCH; -diphenhydrAMINE 50MG/ML VIAL IV PRN; -methylPREDNISolone 125MG 2ML VIAL IV PRN
[2024-03-20 14:05] LABS: BASO % 0.3 % (0.0-1.0); EOS % 0.2 % (0.0-3.0); HEMATOCRIT 38.9 % (42.0-52.0); HEMOGLOBIN 12.2 g/dl (13.5-17.5); LYMPH % 6.8 % (24.0-44.0); MEAN CORPUSCULAR HEMOGLOBIN 26.9 pg (27.0-33.0); MEAN CORPUSCULAR HGB CONC 31.4 g/dl (32.0-36.5); MEAN CORPUSCULAR VOLUME 85.9 fl (80.0-96.0); MONO % 6.7 % (2.0-8.0); NEUTROPHILS # 12.7 10^3/uL (1.5-8.5); NEUTROPHILS % 85.3 % (36.0-66.0); PLATELET COUNT, AUTOMATED 110 10^3/uL (150-450); RED BLOOD COUNT 4.53 10^6/uL (4.30-6.10); WHITE BLOOD COUNT 14.9 10^3/uL (4.0-10.0)
[2024-03-20 14:37] LABS: ALBUMIN 3.1 G/DL (3.2-5.2); ALKALINE PHOSPHATASE 325 U/L (46-116); ALT/SGPT 68 U/L (7.0-40); AST/SGOT 73 U/L (<34); BILIRUBIN,TOTAL 1.2 MG/DL (0.3-1.2); BLOOD UREA NITROGEN 16 MG/DL (9-23); CALCIUM LEVEL 8.8 MG/DL (8.3-10.6); CARBON DIOXIDE LEVEL 27 MMOL/L (20-31); CHLORIDE LEVEL 99 MMOL/L (98-107); CREATININE FOR GFR 0.98 MG/DL (0.70-1.30); GLOMERULAR FILTRATION RATE > 60.0 (>49); GLUCOSE, FASTING 326 MG/DL (74-106); POTASSIUM SERUM 5.1 MMOL/L (3.5-5.1); SODIUM LEVEL 130 MMOL/L (136-145); TOTAL PROTEIN 7.4 G/DL (5.7-8.2)
[2024-03-20 14:39] LABS: FERRITIN 117.6 NG/ML (10.5-307.3)
== END ==
LOC: M LAB 13:22
PROVIDERS: ATTEND Family Medicine
DX: D50.9 Iron deficiency anemia, unspecified (principal); I50.32 Chronic diastolic (congestive) heart failure

== ENCOUNTER → 2024-03-22 | Outpatient (REF) | payer MEDICARE | LOC: M SFHCPLAZ 19:17 | PROVIDERS: ATTEND Family Medicine | DX: I50.32 Chronic diastolic (congestive) heart failure (principal); D50.9 Iron deficiency anemia, unspecified ==

== ENCOUNTER 2024-04-07 11:03 | Inpatient (IN) | payer MEDICARE ==
[~2024-04-07] VITALS: Ht 182.9 cm; Wt 108.8 kg
[2024-04-07 11:47] LABS: BASO % 0.2 % (0.0-1.0); HEMOGLOBIN 12.5 g/dl (13.5-17.5); LYMPH # 0.3 10^3/uL (1.5-5.0); LYMPH % 7.7 % (24.0-44.0); MEAN CORPUSCULAR HEMOGLOBIN 28.1 pg (27.0-33.0); MEAN CORPUSCULAR HGB CONC 32.9 g/dl (32.0-36.5); MEAN CORPUSCULAR VOLUME 85.4 fl (80.0-96.0); MONO # 0.7 10^3/uL (0.0-0.8); NEUTROPHILS # 3.2 10^3/uL (1.5-8.5); NEUTROPHILS % 74.9 % (36.0-66.0); RED BLOOD COUNT 4.45 10^6/uL (4.30-6.10); WHITE BLOOD COUNT 4.3 10^3/uL (4.0-10.0)
[2024-04-07] MEDS: ACETAMINOPHEN TAB 650MG DOSE (2X325MG) PO ONE (11:47)
[2024-04-07 11:56] LABS: INR 1.24; PROTHROMBIN TIME 15.2 SECONDS (12.5-14.5)
[2024-04-07 12:12] LABS: ALBUMIN 3.2 G/DL (3.2-5.2); ALKALINE PHOSPHATASE 256 U/L (46-116); ALT/SGPT 90 U/L (7.0-40); AST/SGOT 144 U/L (<34); BILIRUBIN,DIRECT 0.3 MG/DL (<0.4); BILIRUBIN,TOTAL 0.9 MG/DL (0.3-1.2); BLOOD UREA NITROGEN 21 MG/DL (9-23); CALCIUM LEVEL 8.6 MG/DL (8.3-10.6); CARBON DIOXIDE LEVEL 23 MMOL/L (20-31); CHLORIDE LEVEL 105 MMOL/L (98-107); GLOMERULAR FILTRATION RATE > 60.0 (>49); GLUCOSE, FASTING 139 MG/DL (74-106); PLATELET COUNT, AUTOMATED 86 10^3/uL (150-450); POTASSIUM SERUM 5.1 MMOL/L (3.5-5.1); SODIUM LEVEL 134 MMOL/L (136-145)
[2024-04-07 12:14] LABS: THYROID STIMULATING HORMONE 1.093 uIU/ML (0.55-4.78)
[2024-04-07 12:18] LABS: APPEARANCE, URINE CLEAR (CLEAR); BACTERIA, URINE AUTO NEGATIVE (NEGATIVE); BILIRUBIN, URINE AUTO NEGATIVE (NEGATIVE); BLOOD, URINE BLOOD NEGATIVE (NEGATIVE); COLOR, URINE YELLOW (YELLOW); GLUCOSE, URINE (UA) AUTO 3+ mg/dL (NEGATIVE); KETONE, URINE AUTO NEGATIVE (NEGATIVE); LEUKOCYTE ESTERASE, URINE AUTO NEGATIVE (NEGATIVE); NITRITE, URINE AUTO NEGATIVE (NEGATIVE); PROTEIN, URINE AUTO 1+ mg/dL (NEGATIVE); RBC, URINE AUTO 0 /HPF (0-3); SPECIFIC GRAVITY URINE AUTO 1.023 (1.002-1.035); SQUAMOUS EPITHELIAL CELL UR AU 0 /HPF (0-6); UROBILINOGEN, URINE AUTO 0.2 mg/dL (0.0-2.0); WBC, URINE AUTO 1 /HPF (0-3)
[2024-04-07] MEDS: LACTULOSE 20GM/30ML SYRUP UDC PO ONE (13:16)
[2024-04-07] MEDS ORDERED: GLIM2TAB29 PO (14:18)
[2024-04-07] MEDS ORDERED: CHOL4POW26 PO (14:18)
[2024-04-07] MEDS ORDERED: LACT10SO3 PO (14:18)
[2024-04-07] MEDS ORDERED: HOME MED LIST COMPLETE! XX SCH (14:20)
[2024-04-07] MEDS ORDERED: CHOLESTYRAMINE 4GM PWD PKT PO PRN (14:35)
[2024-04-07] MEDS ORDERED: GLUCOSE 4 GM CHEW PO PRN (14:35)
[2024-04-07] MEDS ORDERED: DEXTROSE 50% 50ML SYRINGE IV PRN (14:35)
[2024-04-07] MEDS ORDERED: GLUCAGON INJ 1MG VIAL SC PRN (14:35)
[2024-04-07] MEDS ORDERED: ALBUTEROL 90 MCG/ACT 8GM HFA INHALER INH PRN (14:35)
[2024-04-07] MEDS: GABAPENTIN 300 MG CAP PO SCH (15:13)
[2024-04-07] MEDS: ROSUVASTATIN 10 MG TAB (CRESTOR) PO SCH (15:13)
[2024-04-07 15:30] VITALS: BP 142/65; TEMP 99.9; O2SAT 100
[2024-04-07] MEDS: LACTULOSE 20GM/30ML SYRUP UDC PO STA (17:46)
[2024-04-07] MEDS: INSULIN LISPRO (NovoLOG) PER UNIT SC SCH ×2 (17:46→21:00)
[2024-04-07 19:00] VITALS: BP 154/72; TEMP 97.7; O2SAT 97
[2024-04-07] MEDS ORDERED: NADOLOL 20MG TABLET PO SCH (21:00)
[2024-04-07] MEDS ORDERED: GABAPENTIN 400MG CAP PO SCH (21:00)
[2024-04-07] MEDS: OMEPRAZOLE 20MG CAP PO SCH (21:12)
[2024-04-07] MEDS: guaiFENesin 200 MG TAB PO SCH (21:12)
[2024-04-07] MEDS: LEVEMIR (INSULIN DETEMIR) 1 UNITS/0.01ML SC SCH (21:12)
[2024-04-07] MEDS: NORTRIPTYLINE 25 MG CAP PO SCH (21:25)
[2024-04-07] MEDS: LACTULOSE 20GM/30ML SYRUP UDC PO SCH (22:50)
[2024-04-07 23:19] VITALS: BP 113/55; TEMP 97.3; O2SAT 93
[2024-04-08 03:02] VITALS: BP 114/60; TEMP 102.2; O2SAT 95
[2024-04-08] MEDS: ACETAMINOPHEN TAB 650MG DOSE (2X325MG) PO PRN (03:16)
[2024-04-08 04:41] VITALS: TEMP 100.3
[2024-04-08 07:07] LABS: BASO % 0.3 % (0.0-1.0); HEMATOCRIT 36.7 % (42.0-52.0); HEMOGLOBIN 11.7 g/dl (13.5-17.5); LYMPH # 0.6 10^3/uL (1.5-5.0); MEAN CORPUSCULAR HEMOGLOBIN 27.8 pg (27.0-33.0); MEAN CORPUSCULAR HGB CONC 31.9 g/dl (32.0-36.5); MEAN CORPUSCULAR VOLUME 87.2 fl (80.0-96.0); MONO # 0.7 10^3/uL (0.0-0.8); NEUTROPHILS % 61.1 % (36.0-66.0); RED BLOOD COUNT 4.21 10^6/uL (4.30-6.10); WHITE BLOOD COUNT 3.3 10^3/uL (4.0-10.0)
[2024-04-08 07:11] LABS: PLATELET COUNT, AUTOMATED 87 10^3/uL (150-450)
[2024-04-08 07:43] LABS: ALBUMIN 2.9 G/DL (3.2-5.2); ALKALINE PHOSPHATASE 227 U/L (46-116); ALT/SGPT 86 U/L (7.0-40); AST/SGOT 137 U/L (<34); BILIRUBIN,TOTAL 0.7 MG/DL (0.3-1.2); BLOOD UREA NITROGEN 20 MG/DL (9-23); CALCIUM LEVEL 8.6 MG/DL (8.3-10.6); CARBON DIOXIDE LEVEL 26 MMOL/L (20-31); CHLORIDE LEVEL 106 MMOL/L (98-107); CREATININE FOR GFR 1.11 MG/DL (0.70-1.30); GLOMERULAR FILTRATION RATE > 60.0 (>49); GLUCOSE, FASTING 102 MG/DL (74-106); MAGNESIUM LEVEL 2.1 MG/DL (1.8-2.4); POTASSIUM SERUM 4.1 MMOL/L (3.5-5.1); SODIUM LEVEL 137 MMOL/L (136-145); TOTAL PROTEIN 6.5 G/DL (5.7-8.2)
[2024-04-08 08:04] VITALS: BP 113/61; TEMP 98.9; O2SAT 99
[2024-04-08] MEDS: VITAMIN D 1,000 INTERNATIONAL UNITS TABLET PO SCH (08:53)
[2024-04-08 11:32] VITALS: BP 110/56; TEMP 99.1; O2SAT 97
[2024-04-08] MEDS ORDERED: REMDESIVIR 100 MG in NS 250 ML IV SCH ×2 (15:10→17:00)
[2024-04-08] MEDS ORDERED: ENOXAPARIN 40MG/0.4ML SYRINGE (J1650 PER 10MG) SC SCH (21:00)
== END 2024-04-08 13:40 | disposition home or self-care (01) | DRG 441 ==
LOC: EDBD 11:03 → M ED 11:03 → M PCU 15:41 → OBSVTOIN 16:00
PROVIDERS: ADMIT Internal Medicine; ATTEND Internal Medicine
DX: K76.82 Hepatic encephalopathy (principal); U07.1 COVID-19; K75.81 Nonalcoholic steatohepatitis (NASH); K74.60 Unspecified cirrhosis of liver; E11.51 Type 2 diabetes mellitus with diabetic peripheral angiopathy without gangrene; E78.5 Hyperlipidemia, unspecified; I10 Essential (primary) hypertension; Z88.0 Allergy status to penicillin; Z88.8 Allergy status to other drugs, medicaments and biological substances; Z79.899 Other long term (current) drug therapy; Z98.41 Cataract extraction status, right eye; Z98.42 Cataract extraction status, left eye; Z87.891 Personal history of nicotine dependence; K64.8 Other hemorrhoids; K57.90 Diverticulosis of intestine, part unspecified, without perforation or abscess without bleeding; M51.36 Other intervertebral disc degeneration, lumbar region; F39 Unspecified mood [affective] disorder

== ENCOUNTER → 2024-04-11 | Outpatient (CLI) | payer MEDICARE ==
[~2024-04-11] MED LIST changes: +CHOL4POW26 PO; +GLIM2TAB29 PO; +LACT10SO3 PO
[2024-04-11 15:40] LABS: HEMATOCRIT 36.3 % (42.0-52.0); HEMOGLOBIN 11.6 g/dl (13.5-17.5); MEAN CORPUSCULAR HEMOGLOBIN 28.4 pg (27.0-33.0); MEAN CORPUSCULAR VOLUME 88.8 fl (80.0-96.0); RED BLOOD COUNT 4.09 10^6/uL (4.30-6.10); WHITE BLOOD COUNT 10.8 10^3/uL (4.0-10.0)
[2024-04-11 15:44] LABS: ALBUMIN 2.7 G/DL (3.2-5.2); ALKALINE PHOSPHATASE 285 U/L (46-116); ALT/SGPT 87 U/L (7.0-40); AST/SGOT 87 U/L (<34); BILIRUBIN,TOTAL 1.1 MG/DL (0.3-1.2); BLOOD UREA NITROGEN 18 MG/DL (9-23); CALCIUM LEVEL 8.6 MG/DL (8.3-10.6); CARBON DIOXIDE LEVEL 28 MMOL/L (20-31); CHLORIDE LEVEL 106 MMOL/L (98-107); CREATININE FOR GFR 1.19 MG/DL (0.70-1.30); GLOMERULAR FILTRATION RATE > 60.0 (>49); GLUCOSE, FASTING 164 MG/DL (74-106); PLATELET COUNT, AUTOMATED 97 10^3/uL (150-450); POTASSIUM SERUM 4.8 MMOL/L (3.5-5.1); SODIUM LEVEL 139 MMOL/L (136-145); TOTAL PROTEIN 6.9 G/DL (5.7-8.2)
[2024-04-11 15:47] LABS: FERRITIN 118.6 NG/ML (10.5-307.3)
[2024-04-11 16:11] LABS: EOSINOPHILS 1 % (0-3); LYMPHOCYTES 10 % (16-44); METAMYELOCYTES 2 % (0-0); MONOCYTES 4 % (0-5); NEUTROPHILS 77 % (28-66); PLATELET ESTIMATE DECREASED (NORMAL)
[2024-04-11 16:12] LABS: ANISOCYTOSIS 3+
== END ==
LOC: M LAB 14:09
PROVIDERS: ATTEND Family Medicine
DX: I50.32 Chronic diastolic (congestive) heart failure (principal); D50.9 Iron deficiency anemia, unspecified

== ENCOUNTER → 2024-04-12 | Outpatient (REF) | payer MEDICARE | LOC: M SFHCPLAZ 11:42 | PROVIDERS: ATTEND Family Medicine | DX: I50.32 Chronic diastolic (congestive) heart failure (principal); D50.9 Iron deficiency anemia, unspecified; K74.60 Unspecified cirrhosis of liver ==

== ENCOUNTER → 2024-04-24 | Outpatient (CLI) | payer MEDICARE ==
[2024-04-24 14:58] LABS: BASO % 0.6 % (0.0-1.0); EOS % 0.6 % (0.0-3.0); HEMATOCRIT 41.6 % (42.0-52.0); HEMOGLOBIN 13.4 g/dl (13.5-17.5); LYMPH % 15.6 % (24.0-44.0); MEAN CORPUSCULAR HEMOGLOBIN 28.5 pg (27.0-33.0); MEAN CORPUSCULAR HGB CONC 32.2 g/dl (32.0-36.5); MEAN CORPUSCULAR VOLUME 88.5 fl (80.0-96.0); MONO # 0.5 10^3/uL (0.0-0.8); MONO % 7.7 % (2.0-8.0); NEUTROPHILS # 4.7 10^3/uL (1.5-8.5); NEUTROPHILS % 75.2 % (36.0-66.0); PLATELET COUNT, AUTOMATED 167 10^3/uL (150-450); WHITE BLOOD COUNT 6.2 10^3/uL (4.0-10.0)
[2024-04-24 15:20] LABS: ALBUMIN 3.2 G/DL (3.2-5.2); ALKALINE PHOSPHATASE 319 U/L (46-116); ALT/SGPT 54 U/L (7.0-40); AST/SGOT 53 U/L (<34); BLOOD UREA NITROGEN 17 MG/DL (9-23); CALCIUM LEVEL 9.1 MG/DL (8.3-10.6); CARBON DIOXIDE LEVEL 29 MMOL/L (20-31); CHLORIDE LEVEL 105 MMOL/L (98-107); CREATININE FOR GFR 0.96 MG/DL (0.70-1.30); GLOMERULAR FILTRATION RATE > 60.0 (>49); GLUCOSE, FASTING 219 MG/DL (74-106); SODIUM LEVEL 136 MMOL/L (136-145)
[2024-04-24 15:23] LABS: FERRITIN 107.1 NG/ML (10.5-307.3)
== END ==
LOC: M PLALAB 13:39 → M LAB 13:39
PROVIDERS: ATTEND Family Medicine
DX: D50.9 Iron deficiency anemia, unspecified (principal); I50.32 Chronic diastolic (congestive) heart failure; K74.60 Unspecified cirrhosis of liver

== ENCOUNTER → 2024-05-29 | Outpatient (CLI) | payer MEDICARE ==
[~2024-05-29] MED LIST changes: +GABA-1490 PO; -GABA600T4 PO
[2024-05-29 11:11] LABS: BASO % 0.9 % (0.0-1.0); EOS % 1.3 % (0.0-3.0); HEMATOCRIT 39.9 % (42.0-52.0); HEMOGLOBIN 13.2 g/dl (13.5-17.5); LYMPH # 0.6 10^3/uL (1.5-5.0); LYMPH % 23.5 % (24.0-44.0); MEAN CORPUSCULAR HGB CONC 33.1 g/dl (32.0-36.5); MEAN CORPUSCULAR VOLUME 90.7 fl (80.0-96.0); MONO # 0.5 10^3/uL (0.0-0.8); MONO % 21.8 % (2.0-8.0); NEUTROPHILS # 1.2 10^3/uL (1.5-8.5); NEUTROPHILS % 52.1 % (36.0-66.0); WHITE BLOOD COUNT 2.3 10^3/uL (4.0-10.0)
[2024-05-29 11:25] LABS: INR 1.24; PROTHROMBIN TIME 15.2 SECONDS (12.5-14.5)
[2024-05-29 11:39] LABS: ALBUMIN 3.1 G/DL (3.2-5.2); ALKALINE PHOSPHATASE 306 U/L (46-116); ALT/SGPT 71 U/L (7.0-40); AST/SGOT 90 U/L (<34); BILIRUBIN,TOTAL 0.8 MG/DL (0.3-1.2); BLOOD UREA NITROGEN 20 MG/DL (9-23); CALCIUM LEVEL 8.6 MG/DL (8.3-10.6); CARBON DIOXIDE LEVEL 28 MMOL/L (20-31); CHLORIDE LEVEL 105 MMOL/L (98-107); CREATININE FOR GFR 0.95 MG/DL (0.70-1.30); GLOMERULAR FILTRATION RATE > 60.0 (>49); GLUCOSE, FASTING 136 MG/DL (74-106); POTASSIUM SERUM 4.5 MMOL/L (3.5-5.1); SODIUM LEVEL 138 MMOL/L (136-145); TOTAL PROTEIN 7.3 G/DL (5.7-8.2)
[2024-05-29 11:50] LABS: PLATELET COUNT, AUTOMATED 90 10^3/uL (150-450)
== END ==
LOC: M CARPUL 08:08
PROVIDERS: ATTEND Internal Medicine Medical Oncology
DX: K75.81 Nonalcoholic steatohepatitis (NASH) (principal); K74.60 Unspecified cirrhosis of liver

== ENCOUNTER → 2024-06-22 | Outpatient (CLI) | payer MEDICARE ==
[~2024-06-22] MED LIST changes: +GABA-1172 PO; -GABA-282 PO; -ROSU20TA61 PO; +ROSU20TA86 PO
[2024-06-22 15:19] LABS: BASO % 0.9 % (0.0-1.0); EOS # 0.1 10^3/uL (0.0-0.5); EOS % 2.3 % (0.0-3.0); HEMATOCRIT 40.2 % (42.0-52.0); LYMPH % 23.9 % (24.0-44.0); MEAN CORPUSCULAR HEMOGLOBIN 29.7 pg (27.0-33.0); MEAN CORPUSCULAR HGB CONC 32.3 g/dl (32.0-36.5); MEAN CORPUSCULAR VOLUME 91.8 fl (80.0-96.0); MONO # 0.6 10^3/uL (0.0-0.8); MONO % 14.5 % (2.0-8.0); NEUTROPHILS # 2.5 10^3/uL (1.5-8.5); NEUTROPHILS % 57.9 % (36.0-66.0); PLATELET COUNT, AUTOMATED 142 10^3/uL (150-450); RED BLOOD COUNT 4.38 10^6/uL (4.30-6.10); WHITE BLOOD COUNT 4.4 10^3/uL (4.0-10.0)
[2024-06-22 15:45] LABS: ALBUMIN 3.2 G/DL (3.2-5.2); ALKALINE PHOSPHATASE 357 U/L (46-116); ALT/SGPT 86 U/L (7.0-40); AST/SGOT 95 U/L (<34); BILIRUBIN,TOTAL 0.7 MG/DL (0.3-1.2); BLOOD UREA NITROGEN 16 MG/DL (9-23); CALCIUM LEVEL 9.4 MG/DL (8.3-10.6); CARBON DIOXIDE LEVEL 30 MMOL/L (20-31); CHLORIDE LEVEL 106 MMOL/L (98-107); CREATININE FOR GFR 0.98 MG/DL (0.70-1.30); FERRITIN 81.2 NG/ML (10.5-307.3); GLOMERULAR FILTRATION RATE > 60.0 (>49); GLUCOSE, FASTING 122 MG/DL (74-106); POTASSIUM SERUM 4.9 MMOL/L (3.5-5.1); SODIUM LEVEL 140 MMOL/L (136-145); TOTAL PROTEIN 7.7 G/DL (5.7-8.2)
== END ==
LOC: M PLALAB 12:14
PROVIDERS: ATTEND Family Medicine
DX: D50.9 Iron deficiency anemia, unspecified (principal); I50.32 Chronic diastolic (congestive) heart failure

== ENCOUNTER → 2024-08-08 | Outpatient (CLI) | payer MEDICARE ==
[~2024-08-08] MED LIST changes: -LACT10SO3 PO; +LACT10SO94 PO
== END ==
LOC: M LRY 14:00
PROVIDERS: ATTEND Physician Assistant Medical
DX: K74.60 Unspecified cirrhosis of liver (principal)

== ENCOUNTER → 2024-09-11 | Outpatient (CLI) | payer MEDICARE | LOC: M PLAIMG 15:42 | PROVIDERS: ATTEND Physician Assistant Medical | DX: R07.81 Pleurodynia (principal); W19.XXXA Unspecified fall, initial encounter ==

== ENCOUNTER 2024-09-27 10:53 | Day surgery (SDC) | payer MEDICARE ==
[~2024-09-27] VITALS: Ht 182.9 cm; Wt 109.5 kg
[~2024-09-27 10:53] MED LIST changes: +FURO40TA2 PO; +GABA-1171 PO; +NS 250 ML IV ONE; +OMEP40CA5 PO; +XIFA550T PO
[2024-09-27] MEDS ORDERED: fentaNYL 100 MCG/2 ML INJECTION As Ordered ONE (13:00)
[2024-09-27] MEDS ORDERED: LIDOCAINE 2% 100MG/5ML SDV (FOR ANES.) As Ordered ONE (13:01)
[2024-09-27] MEDS ORDERED: propofoL 200 MG/20 ML VIAL As Ordered ONE (13:01)
[2024-09-27 13:15] VITALS: TEMP 98.7
[2024-09-27 13:32] VITALS: BP 150/80; O2SAT 96
[2024-09-28] MEDS ORDERED: CLIN-250 PO (14:50)
== END 2024-09-27 13:45 | disposition home or self-care (01) ==
LOC: M OPP 10:53
PROVIDERS: ATTEND Internal Medicine Gastroenterology
DX: I85.01 Esophageal varices with bleeding (principal); E78.00 Pure hypercholesterolemia, unspecified; E11.9 Type 2 diabetes mellitus without complications; I10 Essential (primary) hypertension; F32.A Depression, unspecified; J45.909 Unspecified asthma, uncomplicated; Z87.891 Personal history of nicotine dependence; Z88.0 Allergy status to penicillin; Z88.1 Allergy status to other antibiotic agents; Z79.4 Long term (current) use of insulin; Z79.84 Long term (current) use of oral hypoglycemic drugs; Z79.899 Other long term (current) drug therapy
CPT/HCPCS: 43244; J3010

== ENCOUNTER 2024-09-28 09:50 | Emergency (ER) | payer MEDICARE ==
[~2024-09-28] VITALS: Ht 182.9 cm; Wt 110.8 kg
[~2024-09-28 09:50] MED LIST changes: -NS 250 ML IV ONE
[2024-09-28 12:15] LABS: BASO % 0.5 % (0.0-1.0); EOS # 0.1 10^3/uL (0.0-0.5); EOS % 1.6 % (0.0-3.0); HEMATOCRIT 38.2 % (42.0-52.0); HEMOGLOBIN 12.7 g/dl (13.5-17.5); LYMPH # 0.8 10^3/uL (1.5-5.0); LYMPH % 17.3 % (24.0-44.0); MEAN CORPUSCULAR HEMOGLOBIN 30.5 pg (27.0-33.0); MEAN CORPUSCULAR HGB CONC 33.2 g/dl (32.0-36.5); MEAN CORPUSCULAR VOLUME 91.8 fl (80.0-96.0); MONO # 0.6 10^3/uL (0.0-0.8); MONO % 14.8 % (2.0-8.0); NEUTROPHILS # 2.8 10^3/uL (1.5-8.5); NEUTROPHILS % 65.3 % (36.0-66.0); PLATELET COUNT, AUTOMATED 147 10^3/uL (150-450); RED BLOOD COUNT 4.16 10^6/uL (4.30-6.10); WHITE BLOOD COUNT 4.3 10^3/uL (4.0-10.0)
[2024-09-28 12:39] LABS: ALBUMIN 3.3 G/DL (3.2-5.2); ALKALINE PHOSPHATASE 261 U/L (40-129); ALT/SGPT 60 U/L (7.0-40); AST/SGOT 73 U/L (<34); BILIRUBIN,DIRECT 0.2 MG/DL (<0.4); BILIRUBIN,TOTAL 0.7 MG/DL (0.3-1.2); BLOOD UREA NITROGEN 18 MG/DL (9-23); CALCIUM LEVEL 9.3 MG/DL (8.3-10.6); CARBON DIOXIDE LEVEL 28 MMOL/L (20-31); CHLORIDE LEVEL 104 MMOL/L (98-107); CREATININE FOR GFR 1.06 MG/DL (0.70-1.30); GLOMERULAR FILTRATION RATE > 60.0 (>49); GLUCOSE, FASTING 201 MG/DL (74-106); SODIUM LEVEL 140 MMOL/L (136-145); TOTAL PROTEIN 7.8 G/DL (5.7-8.2)
[2024-09-28] MEDS ORDERED: ISOVUE-370 76% 100ML VIAL As Ordered ONE (13:11)
[2024-09-28 13:24] LABS: ERYTHROCYTE SEDIMENTATION RATE 62 mm/hr (0-20)
[2024-09-28 13:30] LABS: KETONE, URINE AUTO RFX NEGATIVE (NEGATIVE); LEUKOCYTE ESTERASE UR AUTO RFX NEGATIVE (NEGATIVE); NITRITE, URINE AUTO RFX NEGATIVE (NEGATIVE); RBC, URINE AUTO RFX 0 /HPF (0-3); SQUAM EPITHELIAL CELL UR AURFX 0 /HPF (0-6); WBC, URINE AUTO RFX 0 /HPF (0-3)
[2024-09-28 13:49] LABS: C REACTIVE PROTEIN QUANTITATIV 0.9 MG/DL (<1.0)
[2024-09-28 13:56] LABS: PROCALCITONIN 0.18 ng/ml
[2024-09-28] MEDS: KETOROLAC 30 MG/ML 1ML VIAL IV ONE (14:28)
[2024-09-28] MEDS ORDERED: CLIN-250 PO (14:50)
[2024-09-28 15:00] VITALS: BP 145/75; O2SAT 99
[2024-09-28 15:20] VITALS: TEMP 97.6
== END 2024-09-28 15:25 | disposition home or self-care (01) ==
LOC: M ED 09:50
DX: L03.116 Cellulitis of left lower limb (principal); E11.9 Type 2 diabetes mellitus without complications; I10 Essential (primary) hypertension; J45.909 Unspecified asthma, uncomplicated; E78.5 Hyperlipidemia, unspecified; Z88.0 Allergy status to penicillin; Z79.52 Long term (current) use of systemic steroids; Z79.4 Long term (current) use of insulin; Z79.899 Other long term (current) drug therapy
CPT/HCPCS: 74177; 80048; 80076; 81001; 83605; 84145; 85025; 85652; 86140; 87040; 93970; 96374; 99284; G0463; J1885; Q9967

== ENCOUNTER → 2024-11-09 | Outpatient (CLI) | payer MEDICARE ==
[~2024-11-09] MED LIST changes: +CLIN-250 PO
[2024-11-09 15:20] LABS: BASO % 0.6 % (0.0-1.0); EOS # 0.1 10^3/uL (0.0-0.5); EOS % 1.7 % (0.0-3.0); HEMATOCRIT 37.1 % (42.0-52.0); HEMOGLOBIN 11.6 g/dl (13.5-17.5); LYMPH # 1.1 10^3/uL (1.5-5.0); LYMPH % 20.1 % (24.0-44.0); MEAN CORPUSCULAR HEMOGLOBIN 28.9 pg (27.0-33.0); MEAN CORPUSCULAR HGB CONC 31.3 g/dl (32.0-36.5); MEAN CORPUSCULAR VOLUME 92.3 fl (80.0-96.0); MONO # 0.6 10^3/uL (0.0-0.8); MONO % 11.3 % (2.0-8.0); NEUTROPHILS # 3.5 10^3/uL (1.5-8.5); NEUTROPHILS % 65.9 % (36.0-66.0); PLATELET COUNT, AUTOMATED 135 10^3/uL (150-450); RED BLOOD COUNT 4.02 10^6/uL (4.30-6.10); WHITE BLOOD COUNT 5.3 10^3/uL (4.0-10.0)
[2024-11-09 15:21] LABS: INR 1.11; PARTIAL THROMBOPLASTIN TIME 32.3 SECONDS (24.8-34.2); PROTHROMBIN TIME 14.6 SECONDS (12.5-14.5)
[2024-11-09 15:26] LABS: ALBUMIN 3.2 G/DL (3.2-5.2); ALKALINE PHOSPHATASE 243 U/L (40-129); ALT/SGPT 75 U/L (7.0-40); AST/SGOT 82 U/L (<34); BILIRUBIN,TOTAL 0.7 MG/DL (0.3-1.2); BLOOD UREA NITROGEN 14 MG/DL (9-23); CALCIUM LEVEL 9.1 MG/DL (8.3-10.6); CARBON DIOXIDE LEVEL 29 MMOL/L (20-31); CHLORIDE LEVEL 102 MMOL/L (98-107); CHOLESTEROL LEVEL 153 MG/DL (<200); CHOLESTEROL RISK RATIO 3.54 (<5); CREATININE FOR GFR 1.08 MG/DL (0.70-1.30); GLOMERULAR FILTRATION RATE > 60.0 (>49); GLUCOSE, FASTING 201 MG/DL (74-106); HDL CHOLESTEROL 43.2 MG/DL (>40); MAGNESIUM LEVEL 2.2 MG/DL (1.8-2.4); NON-HDL-C 109.8 MG/DL; POTASSIUM SERUM 4.7 MMOL/L (3.5-5.1); PTH INTACT 23.1 PG/ML (18.5-88.0); SODIUM LEVEL 139 MMOL/L (136-145); TOTAL PROTEIN 7.5 G/DL (5.7-8.2); TRIGLYCERIDES LEVEL 179 MG/DL (<150)
[2024-11-09 15:28] LABS: FERRITIN 16.5 NG/ML (10.5-307.3); TOTAL 25(OH) VITAMIN D 78.8 NG/ML (20.0-100.0); VITAMIN B12 LEVEL 1482 PG/ML (211-911)
== END ==
LOC: M PLALAB 12:35
PROVIDERS: ATTEND Family Medicine
DX: D50.9 Iron deficiency anemia, unspecified (principal); I50.32 Chronic diastolic (congestive) heart failure; E55.9 Vitamin D deficiency, unspecified; E78.2 Mixed hyperlipidemia; K74.60 Unspecified cirrhosis of liver

== ENCOUNTER 2024-11-19 11:00 | Outpatient (CLI) | payer MEDICARE ==
[~2024-11-19] VITALS: Ht 182.9 cm; Wt 113.6 kg
[~2024-11-19 11:00] MED LIST changes: +ALBUTEROL SULFATE 2.5MG/0.5ML INH NEB SOLN INH PRN; +EPINEPHrine INJ 1 MG/ML 1ML AMP IM PRN; +diphenhydrAMINE 50MG/ML VIAL IV PRN; +methylPREDNISolone 125MG 2ML VIAL IV PRN
[2024-11-19 11:38] VITALS: BP 135/73; O2SAT 98
[2024-11-19] MEDS: IRON SUCROSE 500 MG in NS 250 ML OVER 4 HRS IV ONE (12:36)
[2024-11-19 16:45] VITALS: BP 144/70; O2SAT 99
== END 2024-11-19 16:45 ==
LOC: M INFU 11:00
PROVIDERS: ATTEND Family Medicine
DX: D50.9 Iron deficiency anemia, unspecified (principal); Z88.0 Allergy status to penicillin
CPT/HCPCS: 96365; 96366; J1756

== ENCOUNTER → 2024-12-04 | Outpatient (CLI) | payer MEDICARE ==
[~2024-12-04] MED LIST changes: -ALBUTEROL SULFATE 2.5MG/0.5ML INH NEB SOLN INH PRN; -EPINEPHrine INJ 1 MG/ML 1ML AMP IM PRN; -diphenhydrAMINE 50MG/ML VIAL IV PRN; -methylPREDNISolone 125MG 2ML VIAL IV PRN
== END ==
LOC: M SLEEP 20:00
PROVIDERS: ATTEND Nurse Practitioner Adult Health
DX: G47.33 Obstructive sleep apnea (adult) (pediatric) (principal)

== ENCOUNTER → 2024-12-19 | Outpatient (CLI) | payer MEDICARE | LOC: M RAD 16:40 | PROVIDERS: ATTEND Family Medicine | DX: Z12.2 Encounter for screening for malignant neoplasm of respiratory organs (principal); Z87.891 Personal history of nicotine dependence ==

== ENCOUNTER → 2025-03-12 | Outpatient (CLI) | payer MEDICARE ==
[~2025-03-12] MED LIST changes: -NADO20TA PO; +NADO20TA38 PO
[2025-03-12 10:33] LABS: PLATELET COUNT, AUTOMATED 108 10^3/uL (150-450)
[2025-03-12 10:41] LABS: INR 1.02
[2025-03-12 10:59] LABS: ALT/SGPT 70.0 U/L (7.0-40); AST/SGOT 72.0 U/L (<34)
== END ==
LOC: M RAD 09:26
PROVIDERS: ATTEND Physician Assistant Medical
DX: K74.60 Unspecified cirrhosis of liver (principal)

== ENCOUNTER → 2025-04-02 | Outpatient (CLI) | payer MEDICARE ==
[2025-04-02 15:33] LABS: BASO # 0.0 10^3/uL (0.0-0.2); BASO % 0.8 % (0.0-1.0); EOS # 0.1 10^3/uL (0.0-0.5); EOS % 2.1 % (0.0-3.0); LYMPH # 0.9 10^3/uL (1.5-5.0); LYMPH % 23.7 % (24.0-44.0); MONO # 0.6 10^3/uL (0.0-0.8); MONO % 15.4 % (2.0-8.0); NEUTROPHILS # 2.2 10^3/uL (1.5-8.5); NEUTROPHILS % 57.7 % (36.0-66.0); PLATELET COUNT, AUTOMATED 118 10^3/uL (150-450)
[2025-04-02 15:41] LABS: ALT/SGPT 72.0 U/L (7.0-40); AST/SGOT 73.0 U/L (<34); CALCIUM LEVEL 9.3 MG/DL (8.3-10.6); CARBON DIOXIDE LEVEL 29.0 MMOL/L (20-31); CHLORIDE LEVEL 100.0 MMOL/L (98-107); CREATININE FOR GFR 1.06 MG/DL (0.70-1.30); GLOMERULAR FILTRATION RATE 76.4 (>49); MAGNESIUM LEVEL 2.2 MG/DL (1.8-2.4); POTASSIUM SERUM 4.8 MMOL/L (3.5-5.1); SODIUM LEVEL 142.0 MMOL/L (136-145)
[2025-04-02 16:01] LABS: ESTIMATED AVERAGE GLUCOSE 212.0 MG/DL (60-110)
== END ==
LOC: M PLALAB 12:18
PROVIDERS: ATTEND Family Medicine
DX: E11.69 Type 2 diabetes mellitus with other specified complication (principal); E78.2 Mixed hyperlipidemia; I10 Essential (primary) hypertension; I85.00 Esophageal varices without bleeding

== ENCOUNTER → 2025-05-10 | Outpatient (CLI) | payer MEDICARE, MEDICAID ==
[2025-05-10 14:38] LABS: BASO # 0.0 10^3/uL (0.0-0.2); BASO % 0.7 % (0.0-1.0); EOS # 0.1 10^3/uL (0.0-0.5); EOS % 2.1 % (0.0-3.0); LYMPH # 0.6 10^3/uL (1.5-5.0); LYMPH % 22.0 % (24.0-44.0); MONO # 0.5 10^3/uL (0.0-0.8); MONO % 16.5 % (2.0-8.0); NEUTROPHILS # 1.7 10^3/uL (1.5-8.5); NEUTROPHILS % 57.7 % (36.0-66.0); PLATELET COUNT, AUTOMATED 100 10^3/uL (150-450)
[2025-05-10 14:52] LABS: INR 1.0
[2025-05-10 15:03] LABS: PSA SCREENING 0.18 NG/ML (< 4.00)
[2025-05-10 15:05] LABS: ALT/SGPT 70.0 U/L (7.0-40); AST/SGOT 67.0 U/L (<34); CALCIUM LEVEL 8.7 MG/DL (8.3-10.6); CARBON DIOXIDE LEVEL 26.0 MMOL/L (20-31); CHLORIDE LEVEL 99.0 MMOL/L (98-107); CHOLESTEROL LEVEL 212.0 MG/DL (<200); CHOLESTEROL RISK RATIO 6.4 (<5); CREATININE FOR GFR 1.0 MG/DL (0.70-1.30); GLOMERULAR FILTRATION RATE 82.0 (>49); LDL CHOLESTEROL 109.9 MG/DL (<100); MAGNESIUM LEVEL 2.4 MG/DL (1.8-2.4); NON-HDL-C 178.9 MG/DL; POTASSIUM SERUM 4.5 MMOL/L (3.5-5.1); SODIUM LEVEL 135.0 MMOL/L (136-145); TRIGLYCERIDES LEVEL 345.0 MG/DL (<150)
[2025-05-10 15:06] LABS: TOTAL 25(OH) VITAMIN D 77.6 NG/ML (20.0-100.0)
[2025-05-10 15:12] LABS: PTH INTACT 29.6 PG/ML (18.5-88.0)
[2025-05-10 15:37] LABS: VITAMIN B12 LEVEL 1520.0 PG/ML (211-911)
== END ==
LOC: M LAB 13:49
PROVIDERS: ATTEND Family Medicine
DX: D50.9 Iron deficiency anemia, unspecified (principal); I50.32 Chronic diastolic (congestive) heart failure; E78.2 Mixed hyperlipidemia; K74.69 Other cirrhosis of liver; Z12.5 Encounter for screening for malignant neoplasm of prostate
CPT/HCPCS: 36415; 80053; 80061; 82105; 82306; 82607; 82728; 83735; 83880; 83970; 85025; 85610; 85730; G0103

== ENCOUNTER 2025-05-13 07:51 | Outpatient (CLI) | payer MEDICARE, MEDICAID ==
[~2025-05-13] VITALS: Ht 182.9 cm; Wt 112.3 kg
[~2025-05-13 07:51] MED LIST changes: +ALBUTEROL SULFATE 2.5 MG/0.5 ML INH CONCENTRATE NEB SOLN INH PRN; +EPINEPHrine INJ 1 MG/ML 1ML AMP IM PRN; -ISOVUE-370 76% 100 ML VIAL As Ordered ONE; +diphenhydrAMINE 50 MG/ML VIAL IV PRN
[2025-05-13] MEDS: IRON SUCROSE 500 MG in NS 250 ML OVER 4 HRS IV ONE (08:27)
[2025-05-13 08:37] VITALS: BP 158/67; O2SAT 96
[2025-05-13 09:30] VITALS: BP 128/71; O2SAT 99
[2025-05-13 10:30] VITALS: BP 120/65; O2SAT 97
[2025-05-13 11:30] VITALS: BP 126/70; O2SAT 98
== END 2025-05-13 12:27 ==
LOC: M INFU 07:51
PROVIDERS: ATTEND Family Medicine
DX: D50.9 Iron deficiency anemia, unspecified (principal); Z88.0 Allergy status to penicillin
CPT/HCPCS: 70450; 71260; 96365; 96366; J1756; Q9967

== ENCOUNTER → 2025-05-13 | Outpatient (CLI) | payer MEDICARE, MEDICAID ==
[~2025-05-13] MED LIST changes: +ISOVUE-370 76% 100 ML VIAL As Ordered ONE
== END ==
LOC: M RAD 12:33
PROVIDERS: ATTEND Family Medicine
DX: R51.9 Headache, unspecified (principal); R91.1 Solitary pulmonary nodule

== ENCOUNTER → 2025-07-08 | Outpatient (CLI) | payer MEDICARE, MEDICAID ==
[~2025-07-08] MED LIST changes: -ALBUTEROL SULFATE 2.5 MG/0.5 ML INH CONCENTRATE NEB SOLN INH PRN; -EPINEPHrine INJ 1 MG/ML 1ML AMP IM PRN; -diphenhydrAMINE 50 MG/ML VIAL IV PRN
== END ==
LOC: M WHC 09:19
PROVIDERS: ATTEND Family Medicine
DX: M85.89 Other specified disorders of bone density and structure, multiple sites (principal)

== ENCOUNTER 2025-07-12 09:30 | Outpatient (CLI) | payer MEDICARE, MEDICAID ==
[~2025-07-12] VITALS: Ht 157.5 cm; Wt 78.6 kg
[~2025-07-12 09:30] MED LIST changes: +ALBUTEROL SULFATE 2.5 MG/0.5 ML INH CONCENTRATE NEB SOLN INH PRN; +EPINEPHrine INJ 1 MG/ML 1ML AMP IM PRN; +diphenhydrAMINE 50 MG/ML VIAL IV PRN
[2025-07-12 10:45] VITALS: BP 125/61; O2SAT 98
[2025-07-12] MEDS: IRON SUCROSE 500 MG in NS 250 ML IV ONE (11:09)
[2025-07-12 12:00] VITALS: BP 111/57; O2SAT 96
[2025-07-12 13:00] VITALS: BP 118/64; O2SAT 97
[2025-07-12 15:21] VITALS: BP 129/62; O2SAT 97
== END 2025-07-12 15:20 | disposition home or self-care (01) ==
LOC: M INFU 09:30
PROVIDERS: ATTEND Family Medicine
DX: D50.9 Iron deficiency anemia, unspecified (principal); Z88.0 Allergy status to penicillin
CPT/HCPCS: 96365; 96366; J1756

== ENCOUNTER 2025-07-19 10:31 | Outpatient (CLI) | payer MEDICARE, MEDICAID ==
[~2025-07-19] VITALS: Ht 182.9 cm; Wt 114.0 kg
[2025-07-19 10:51] VITALS: BP 132/65; O2SAT 98
[2025-07-19] MEDS: IRON SUCROSE 500 MG in NS 250 ML IV ONE (11:03)
[2025-07-19 11:34] VITALS: BP 112/56; O2SAT 98
[2025-07-19 12:38] VITALS: BP 107/62; O2SAT 97
[2025-07-19 13:35] VITALS: BP 131/63; O2SAT 97
[2025-07-19 15:05] VITALS: BP 144/65; O2SAT 97
== END 2025-07-19 15:05 | disposition home or self-care (01) ==
LOC: M INFU 10:31
PROVIDERS: ATTEND Family Medicine
DX: D50.9 Iron deficiency anemia, unspecified (principal); Z88.0 Allergy status to penicillin
CPT/HCPCS: 96365; 96366; J1756

== ENCOUNTER → 2025-08-19 | Outpatient (CLI) | payer MEDICARE, MEDICAID ==
[~2025-08-19] MED LIST changes: -ALBUTEROL SULFATE 2.5 MG/0.5 ML INH CONCENTRATE NEB SOLN INH PRN; -EPINEPHrine INJ 1 MG/ML 1ML AMP IM PRN; -diphenhydrAMINE 50 MG/ML VIAL IV PRN
[2025-08-19 17:23] LABS: BASO # 0.0 10^3/uL (0.0-0.2); BASO % 0.7 % (0.0-1.0); EOS # 0.1 10^3/uL (0.0-0.5); EOS % 1.6 % (0.0-3.0); LYMPH # 0.8 10^3/uL (1.5-5.0); LYMPH % 17.6 % (24.0-44.0); MONO # 0.7 10^3/uL (0.0-0.8); MONO % 16.7 % (2.0-8.0); NEUTROPHILS # 2.8 10^3/uL (1.5-8.5); NEUTROPHILS % 62.9 % (36.0-66.0); PLATELET COUNT, AUTOMATED 111 10^3/uL (150-450)
[2025-08-19 17:49] LABS: ALT/SGPT 78.0 U/L (7.0-40); AST/SGOT 95.0 U/L (<34); CALCIUM LEVEL 9.2 MG/DL (8.3-10.6); CARBON DIOXIDE LEVEL 32.0 MMOL/L (20-31); CHLORIDE LEVEL 100.0 MMOL/L (98-107); CREATININE FOR GFR 1.11 MG/DL (0.70-1.30); GLOMERULAR FILTRATION RATE 72.3 (>49); MAGNESIUM LEVEL 2.2 MG/DL (1.8-2.4); POTASSIUM SERUM 4.3 MMOL/L (3.5-5.1); SODIUM LEVEL 139.0 MMOL/L (136-145)
== END ==
LOC: M PLALAB 16:32
PROVIDERS: ATTEND Family Medicine
DX: D50.9 Iron deficiency anemia, unspecified (principal); I50.32 Chronic diastolic (congestive) heart failure